=== PATIENT | female | born 1935 | race Caucasian/White ===

== ENCOUNTER 2019-03-31 01:40 | Inpatient (IN) | payer MEDICARE ==
[~2019-03-31] VITALS: Ht 162.6 cm; Wt 68.7 kg
[2019-03-31 13:40] VITALS: BP 146/65
--- NOTE | 2019-03-31 13:40 | NUR ---
AMADA QUIGLEY admitted to room 223-1, with an admitting diagnosis of S/P LEFT KNEE REPLACEMENT, on 03/31/19 from [facility] via , accompanied by STAFF AND FAMILY.AMADA QUIGLEY introduced to surroundings, call light, bed controls, phone, TV, temperature control, lights, meal times, smoking policy, visitor policy, side rail policy, bathrooms and showers. Patient Rights given to patient in the handbook.AMADA QUIGLEY verbalizes understanding that [facility] is not responsible for the loss or damage to any personal effects or valuables that are kept in the patients posession during their hospitalization. The following Patient Care Plans were discussed with the PT: Discharge Planning AND IMMOBILITY. AMADA QUIGLEY verbalizes understanding of Interdisciplinary Patient Education. Patient received Patient Rights Booklet, which includes Privacy Act Statement and Data Collection Information Summary.
--- NOTE | 2019-03-31 14:22 | Occupational Therapy Eval ---
OT Evaluation-General/PLF Medical Diagnosis Admission Date Mar 31, 2019 at 01:40 Medical Diagnosis: L knee OA, s/p TKA Onset Date: Mar 31, 2019 Therapy Diagnosis Therapy Diagnosis: decreased functional mobilty and ADL function Precautions Precautions/Isolations: Standard Precautions Weight Bear Status Weight Bearing Restriction: Weight Bearing/Tolerated Referral Physician: Dr. Elvia Huerta Referral Reason: Activity Tolerance, Self Care, Evaluation/Treatment, Strengthening/ROM Medical History Current History Per nursing notes: "admitting diagnosis of S/P LEFT KNEE REPLACEMENT, on 03/31/19 from [facility] via , accompanied by STAFF AND FAMILY." Reviewed History: Yes Social History Home: Single Level Current Living Status: Alone Entry Into Home: Stairs Without Railing Steps Into Home: 1 (Pt has small threashhold going into home) Steps Inside Home: 0 Pt has tub shower with grab bars within the shower. Pt plans to receive a shower chair from the [employer]. Pt uses riser over the toilet to increase seat height. Pt stated daughter plans to come to pt's home and stay for one week upon d/c. ADL-Prior Level of Function Therapy Code Descriptions/Definitions Functional [place] Measure: 0=Not Assessed/NA 4=Minimal Assistance 1=Total Assistance 5=Supervision or Setup 2=Maximal Assistance 6=Modified [place] 3=Moderate Assistance 7=Complete [place] Therapy Quality Codes: 6 Independent with activity with or without an assistive device 5 Patient requires set up or clean up by helper. Patient completes activity by themselves 4 Supervision or touching assist (CGA). [place] provide cues , steadying assist 3 The helper provides less than half the effort to complete the activity 2 The helper provides more than half the effort to complete the activity 1 Dependent. The helper does all the effort to complete an activity 7 Patient refused to complete or attempt activity 9 The patient did not perform the activity before the current illness or injury 88 Not attempted due to Medical conditions or safety concerns Functional Abilities and Goals: Independent: Patient completed the activities by him/herself, with or without an assistive device, with no assistance from a helper. Needed Some Help: Patient needed partial assistance from another person to complete activities. Dependent: A helper completed the activities for the patient. 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 Pt 0x4, agreeable to therapy eval and treat. Pain Comment: Pt stated no pain during sitting, a dull ache within L knee. Mental Status/Objective Patient Orientation: Person, Place, Time, Situation, Normal For Age Current Glasses/Contacts: Yes Hearing Aids: No Dentures/Partials: No Hand Dominance: Right Upper Extremity ROM WFL Upper Extremity Coordination WFL Upper Extremity Sensation WFL Upper Extremity Strength 4+/5 BUE ADL-Treatment Eating (FIM): 7 Eating (QC): 6 Grooming (FIM): 5 (s/u for face wipes) Oral Hygiene (QC): 7 Bathing (FIM): 6 (Pt showered on shower chair, able to bath all areas with thoroughness and no AE) Shower/Bathe Self (QC): 6 Upper Body Dressing (FIM): 6 Upper Body Dressing (QC): 6 Lower Body Dressing (FIM): 5 (SBA for safety while wet/ showered) Lower Body Dressing (QC): 4 (SBA) On/Off Footwear (QC): 6 (Mod I for increased time due to pain/ uncomfort) Toileting (FIM): 6 (use of grab bars and riser over toilet) Toileting Hygiene (QC): 6 Transfers (B, C, W/C) (FIM): 5 (SBA for safety during movement due to pain) Toilet/Commode Transfer (FIM): 6 (Utilized grab bars and stool riser) Toilet Transfer (QC): 6 Shower Transfer (FIM): 5 (SBA due to pain) Other Treatments Pt completed OT evaluation and treatment. Pt sat EOB with good functional balance, gathered clothing from suitcase, and transferred with FWW to bathroom. Pt requested commode over toilet due to riser at home. Pt completed 10 minutes of arm bike with (5 minutes 25 watt) and (5 minutes 35 watt) resistance and no c/o SOB. Pt left in bed with family members and social insurance administrator present. All needs met and call light within reach. Education OT Patient Education: Correct positioning, Energy conservation, Modified ADL techniques, Progress toward Goal/Update tx plan, Purpose of tx/functional activities, Reviewed precautions, Rehab process, Safety issues, Transfer techniques, Use of adapted equipment Teaching Recipient: Patient Teaching Methods: Demonstration, Discussion Response to Teaching: Verbalize Understanding, Return Demonstration OT Short Term Goals Short Term Goals Grooming(FIM): 7 Transfers (B,C,W/C) (FIM): 6 Toilet/Commode Transfer(FIM): 6 1=Demonstrate adherence to instructed precautions during ADL tasks. 2=Patient will verbalize/demonstrate understanding of assistive devices/modifications for ADL. 3=Patient will improve strength/tolerance for activity to enable patient to perform ADL's. OT Residential Door Installer Goals Group Home Goals Eating (FIM): 7 Eating (QC): 6 Groomin Oral Hygiene (QC): 6 Bathing(FIM): 6 Shower/Bathe Self (QC): 6 Upper Body Dressing(FIM): 7 Upper Body Dressing (QC): 6 Lower Body Dressing(FIM): 7 Lower Body Dressing (QC): 6 On/Off Footwear (QC): 7 Toileting(FIM): 6 Toileting Hygiene (QC): 6 Transfers (B,C,W/C) (FIM): 6 Toilet/Commode Transfer(FIM): 6 Toilet/Commode Transfer (QC): 6 Tub Transfer(FIM): 6 Shower Transfer(FIM): 6 Additional Goals: 1-Demonstrate ADL Tasks, 2-Verbalize Understanding, 3-ImproveStrength/[place] 1=Demonstrate adherence to instructed precautions during ADL tasks. 2=Patient will verbalize/demonstrate understanding of assistive devices/modifications for ADL. 3=Patient will improve strength/tolerance for activity to enable patient to perform ADL's. OT Education/Plan Problem List/Assessment Assessment: Decreased Safety Aware, Impaired I ADL's, Impaired Self-Care Skills Discharge Recommendations Plan/Recommendations: Continue POC Therapy Discharge Recommendati: Other, See Comments (Home with intermittent assist) Equpiment Recommendations-D/C: Bath Chair Patient/Family Goals Pt states she would like to increase confidence of abilities and increase walking ability before d/c. Treatment Plan/Plan of Care Treatment,Training & Education: Yes Patient would benefit from OT for education, treatment and training to promote independence in ADL's, mobility, safety and/or upper extremity function for ADL's. Plan of Care: ADL Retraining, Caregiver Training, Functional Mobility, Group Exercise/Act as Ind, UE Funct Exercise/Act Treatment Duration: Apr 07, 2019 Frequency: At least 5 of 7 days/Wk (IRF) Estimated Hrs Per Day: 1 hour per day (1-1.5 hours per day) Agreement: Yes Rehab Potential: Good Time/GCodes Start Time: 15:00 Stop Time: 16:15 Total Time Billed (hr/min): 75 Billed Treatment Time 1 EVL ADL 4 (60) KERRI LEACH OTR Mar 31, 2019 14:21
[2019-03-31] MEDS ORDERED: POTA99TA21 PO (14:40)
[2019-03-31] MEDS ORDERED: GABA-488 PO (14:40)
[2019-03-31] MEDS ORDERED: PANT40TA2 PO (14:40)
[2019-03-31] MEDS ORDERED: AMLO5TAB9 PO (14:40)
[2019-03-31] MEDS ORDERED: ASPI-983 PO (14:40)
[2019-03-31] MEDS ORDERED: SENN-141 PO (14:40)
[2019-03-31] MEDS ORDERED: TRAM50TA2 PO (14:40)
[2019-03-31] MEDS ORDERED: HYDR-3812 PO (14:40)
[2019-03-31] MEDS ORDERED: LEVO50TA6 PO (14:40)
[2019-03-31] MEDS ORDERED: LOSA100T3 PO (14:40)
[2019-03-31] MEDS ORDERED: MELO7.5T46 PO (14:40)
[2019-03-31] MEDS ORDERED: LABE100T6 PO ×2 (14:44)
--- NOTE | 2019-03-31 15:03 | Physical Therapy Evaluation ---
PT Evaluation-General Medical Diagnosis Admission Date Mar 31, 2019 at 01:40 Medical Diagnosis: L knee OA, s/p TKA Onset Date: Mar 29, 2019 Therapy Diagnosis Therapy Diagnosis: impaired mobility, strength, endurance, ROM Precautions Precautions/Isolations: Standard Precautions Weight Bear Status Left Lower Extremity: Left Weight Bearing/Tolerated Referral Physician: Dr. lEvia Huerta Reason for Referral: Evaluation/Treatment Medical History Reviewed History: Yes Social History Home: Single Level Current Living Status: Alone Entry Into Home: Level Entry Patient states she has a small threshold to step over to get into her home. Prior/Core FIM Prior Level of Function Therapy Code Descriptions/Definitions Functional [place] Measure: 0=Not Assessed/NA 4=Minimal Assistance 1=Total Assistance 5=Supervision or Setup 2=Maximal Assistance 6=Modified [place] 3=Moderate Assistance 7=Complete [place] Therapy Quality Codes: 6 Independent with activity with or without an assistive device 5 Patient requires set up or clean up by helper. Patient completes activity by themselves 4 Supervision or touching assist (CGA). [place] provide cues , steadying assist 3 The helper provides less than half the effort to complete the activity 2 The helper provides more than half the effort to complete the activity 1 Dependent. The helper does all the effort to complete an activity 7 Patient refused to complete or attempt activity 9 The patient did not perform the activity before the current illness or injury 88 Not attempted due to Medical conditions or safety concerns Functional Abilities and Goals: Independent: Patient completed the activities by him/herself, with or without an assistive device, with no assistance from a helper. Needed Some Help: Patient needed partial assistance from another person to complete activities. Dependent: A helper completed the activities for the patient. Unknown: Not Applicable: Bed Mobility: 7 Transfers (B,C,W/C) (FIM): 7 Gait: 7 Stairs: 7 Indoor Mobility (Ambulation): Independent Stairs: Independent PT Evaluation-Current Subjective Patient in car pre tx, arrived at the hospital. She has 2/10 pain in left knee. Patient transferred to wheelchair with min assist and taken to the rehab floor. Pt/Family Goals to be independent at home Objective Patient Orientation: Person, Place, Situation ROM/Strength ROM Lower Extremities left knee flexion 80 degrees, extension +2 degrees Sensory Vision: Wears Glasses Hearing: Functional Sensation Right Lower Extremit: Impaired Sensation Left Lower Extremity: Impaired Sensation Lower Extremities Patient has diminished light touch sensation in both lower legs. Transfers Therapy Code Descriptions/Definitions Functional [place] Measure: 0=Not Assessed/NA 4=Minimal Assistance 1=Total Assistance 5=Supervision or Setup 2=Maximal Assistance 6=Modified [place] 3=Moderate Assistance 7=Complete [place] Therapy Quality Codes: 6 Independent with activity with or without an assistive device 5 Patient requires set up or clean up by helper. Patient completes activity by themselves 4 Supervision or touching assist (CGA). [place] provide cues , steadying assist 3 The helper provides less than half the effort to complete the activity 2 The helper provides more than half the effort to complete the activity 1 Dependent. The helper does all the effort to complete an activity 7 Patient refused to complete or attempt activity 9 The patient did not perform the activity before the current illness or injury 88 Not attempted due to Medical conditions or safety concerns Transfers (B, C, W/C) (FIM): 4 Scootin Rollin Roll Left to Right (QC): 4 Supine to/from Sit: 5 Sit to/from Stand: 4 Sit to Lying (QC): 4 Lying to Sitting/Side of Bed(Q: 4 Sit to Stand (QC): 4 Chair/Tzf-xk-Mgwam Xfer(QC): 4 Car Transfer (QC): 3 Patient performs bed mobility with SBA, supine <-> sit with SBA, sit <-> stand with CGA, transfers CGA, car transfer min assist. Patient needs cues for hand placement and safety. She can be impulsive and move quickly with transitions but has not lost her balance. Gait Does the Patient Walk?: Yes Mode of Locomotion: Walk Anticipated Mode of Locomotion: Walk Gait (FIM): 4 Walk 10 feet (QC): 4 Walk 50 ft with 2 Turns(QC): 4 Walk 150 ft (QC): 4 Walking 10ft/uneven surface-QC: 4 Distance: 400', 150', 100' Gait Level of Assist: 4 Gait Persons Needed: 1 Gait Assistive Device: FWW Comments/Gait Description Patient can ambulate 400' with a rolling walker with CGA (including 50' with at least 2 turns of 90 degrees and 10' over an uneven surface). She ambulates briskly but has decreased safety awareness and needs cues to slow down and turn safely. Stairs Stairs (FIM): 1 #of Steps: 1 Level of Assist: 4 1 Step (curb) (QC): 4 Assistive Device: Walker Patient can go up and down 1 step using a rolling walker with CGA. She needs cues for step placement and safety. Balance Sitting Static: Normal Sitting Dynamic: Normal Standing Static: Good Standing Dynamic: Fair Treatment seated exercises x20 (AP, marching, hip abd/add, LAQ for 5 min), supine exercises x20 (AP, QS, GS, HS, SLR, SAQ), NuStep level 3 for 15 min. Assessment/Needs Patient has impaired mobility, strength, endurance, ROM. She can be impulsive and has decreased safety awareness. She needs rest breaks often due to fatigue. Rehab Potential: Fair PT Short Term Goals Short Term Goals Time Frame: Apr 07, 2019 Transfers (B,C,W/C) (FIM): 5 Gait (FIM): 5 Gait Distance Comment: 500' Gait Level of Assist: 5 Gait Assistive Device: FWW PT Senior Care Goals Senior Care Goals PT Postal Carrier Goals Time Frame: Apr 21, 2019 Transfers (B,C,W/C) (FIM): 6 Sit to Lying (QC): 6 Lying-Sitting on Side/Bed(QC): 6 Sit to Stand (QC): 6 Rollin Roll Left to Right (QC): 6 Chair/Awi-ow-Tqsys Xfer(QC): 6 Car Transfer (QC): 6 Gait (FIM): 6 Distance: 500' Walk 10 feet (QC): 6 Walk 10ft-Uneven Surface(QC): 6 Walk 50ft with 2 Turns (QC): 6 Walk 150 ft (QC): 6 Gait Level of Assist: 6 Gait Assistive Device: FWW Stairs (FIM): 2 # of Steps: 4 1 Step (curb) (QC): 4 4 Steps (QC): 4 Stairs Level Of Assist: 5 PT Plan Problem List Problem List: Activity Tolerance, Functional Strength, Safety, Balance, Gait, Transfer, Bed Mobility, ROM Treatment/Plan Treatment Plan: Continue Plan of Care Treatment Plan: Bed Mobility, Education, Functional Activity [place], Functional Strength, Group Therapy, Gait, Safety, Therapeutic Exercise, Transfers Frequency: At least 5 of 7 days/Wk (IRF) Estimated Hrs Per Day: 1.5 hours per day Patient and/or Family Agrees t: Yes Safety Risks/Education Patient Education: Gait Training, Transfer Techniques, Steps, Correct Positioning, Safety Issues Teaching Recipient: Patient Teaching Methods: Demonstration, Discussion Response to Teaching: Reinforcement Needed Discharge Recommendations Plan Patient will perform bed mobility and transfer training, balance and endurance training, functional strengthening, stair training, gait training, and educatio n, to improve functional mobility and independence at home. Therapy Discharge Recommendati: Other, See Comments (home with family supervision) Time/GCodes Time In: 1330 Time Out: 1500 Total Billed Treatment Time: 90 Total Billed Treatment 1 visit EVM 30', GT 15' EX 45' LANI PALAFOX PT Mar 31, 2019 15:03
--- NOTE | 2019-03-31 16:33 | ST Cognitive Linguistic Eval ---
Speech Evaluation-General Medical Diagnosis L knee OA, s/p TKA Onset Date: Mar 29, 2019 Therapy Diagnosis Therapy Diagnosis: Cognitive-communication Precautions Precautions: Fall Precautions/Isolations: Standard Precautions Referral Referring Physician: Dr. Huerta Reason for Referral: Evaluation/Treatment Medical History Pertinent Medical History: OA OA Current History L knee OA, s/p TKA Reviewed History: Yes Social History Home: Single Level Current Living Status: Alone Speech PLF-Current Status Prior Level of Function Patient lives alone in her own home where she was independent for her daily needs Subjective Patient was pleasant and cooperative with the cognitive assessment. Language Eval: Auditory Comprehends Simple Yes/No Ques: Functional Indent/Objects [place]: Functional Ident/Pics in [place]: Functional Follows 1-Step Commands: Functional Follows Complex Directions: Functional Follows General Conversations: Functional Language Eval: Verbal Language Completes Spontaneous Greeting: Functional Produces Auto, Serial Info: Functional Imitates Simple Words/Phrases: Functional Word Finding: Functional Requests Basic Needs: Functional States Basic Personal Info: Functional Expresses Complex Ideas: Functional Objective Cognitive Domain Attention: WNL Memory: Mild Problem Solving: Functional Executive Functions: WNL Visuospatial Skills: Moderate Composite Severity Rating: WNL Clock Drawing Severity Rating: WNL Objective Formal/Standardized Tests [facility] Mental Status ([facility]) Results 29/30, within normal range Oral Motor/Speech Production Within Functional Limits Impression The patient is a pleasant 83 year old woman who was admitted to the ARU s/p TKA. The patient was given the SLUMS with a score of 29/30. The patient does not warrant skilled ST at this time. Communication/Social Cognition Comprehension: 7 Expression: 7 Social Interaction: 7 Problem Solvin Memory: 7 Speech Patient Assess Expression of Ideas/Wants: Expression (4) Understanding Verbal Content: Understands (4) Brief Interview-Mental Status: Yes Repetition of Three Words: Three (3) Temporal Orientation: Year: Correct (3) Temporal Orientation: Month: Accurate within 5 days(2) Temporal Orientation: Day: Correct (1) Recall : Wear to say "Sock": Yes, no cue required (2) Recall : Color: Yes, no cue required (2) Recall : Bed: Yes, no cue required (2) Memory/Recall Ability: Current season, Location of own room, Staff names and faces, That he or she is in a hsp/hsp unit Speech-Plan Patient/Family Goals Patient/Family Goals: The patient plans on returning to her home post rehab. Treatment Plan Speech Therapy Treatment Plan: Discontinue ST The patient does not require skilled ST at this time. Treatment Duration: Mar 31, 2019 Frequency: 1 time per week Estimated Hrs Per Day: .25 hour per day Rehab Potential: Fair Barriers to Learning: None identified Pt/Family Agrees to Plan: Yes Safety Risks/Education Teaching Recipient: Patient, Family Teaching Methods: Discussion Response to Teaching: Verbalize Understanding Education Topics Provided: Safety within her room Time Speech Therapy Time In: 16:15 Speech Therapy Time Out: 16:30 Total Billed Time: 15 Billed Treatment Time 1, SPSNDCOMP PATRICE Calderon Mar 31, 2019 16:33
--- NOTE | 2019-03-31 16:45 | NUR ---
SALES REPRESENTATIVE PUBLICATIONS met with patient to complete initial assessment. Patient was alert and oriented and agreeable to assessment. Patient admitted to ARU from [facility] following an elective left knee replacement due to osteoarthritis (Surgeon: Dr. Granado).Prior to surgery patient resided in a one level home in [place], [place]. The home has one step at the entrance. the home is equipped with a stool riser, grab bars in the bathroom and shower seat. Patient also has a FWW present in her hospital room that is borrowed from a friend.. Patient reports independence with all activity and an active lifestyle prior to surgery. Primary local contact identified as son, Prakash at [phone]. Prakash resides 3 blocks from patient. Secondary contact identified as daughter Herlinda of [place] at [phone]. Herlinda intends to stay with patient, for a week, at discharge. patient also identifies lifelong friend, Dillon as a contact at [phone]. Insurance verified as Medicare and Blue Cross with and temp prescription coverage and preferred pharmacy as [facility]. PCP identified as Dr. Patino of [place]. SALES REPRESENTATIVE PUBLICATIONS reviewed typical ARU length of stay and weekly team conferences. Patient admits at a relatively high level and will likely benefit from only a short stay. Upon discussion of post hospital arrangements, patient would like to utilize outpatient therapy in [place] at discharge. She would also like a handicap placard. SALES REPRESENTATIVE PUBLICATIONS will continue to follow.
--- NOTE | 2019-03-31 16:48 | NUR ---
UPDATED MED REC WITH DISCHARGE INSTRUCTIONS FROM [facility]. NOTE THE FOLLOWING CHANGES WERE MADE: START TAKING: MELOXICAM 7.5MG Q12 HOURS (STOP TAKING 15MG DAILY) ASPIRIN 81MG DAILY TRAMADOL 50MG 1-2 TABS Q6H PRN HYDROCODONE 5-325MG 1-2 Q4H PRN PROTONIX 40MG DAILY NOTE THE EXT MED HX SHOWS HER GABAPENTIN FILLED 300MG #60 FOR 30 DAYS - IT WAS REPORTED ON THE DISCHARGE FROM [facility] 1 HS. ALSO HER LABETALOL WAS FILLED 100MG #60 FOR 30 DAYS - IT WAS REPORTED 50MG AM AND 100MG HS. I TRIED MULTIPLE TIMES TO GET IN TO VISIT WITH THE PATIENT AND WAS UNABLE TO SPEAK WITH HER DUE TO OTHER STAFF MEMBERS WORKING WITH THE PATIENT. I HAVE REVIEWED IT IT WAS REPORTED AT [facility] BUT I PASSED THE INFO ON TO THE NURSE FOR CLARIFICATION. I WILL UPDATE THE MED REC BACK TO THE LIST OF HOME MEDICATIONS PRIOR TO [facility] VISIT AT A LATER TIME FOR PROPER DISCHARGE TO HOME ORDERS. Addendum: 04/03/19 at 0825 by CAIO FERGUSON [facility] REMOVED THE 5 NEW PRESCRIPTIONS FROM THE MED REC, ADDED BACK THE MELOXICAM 15MG THAT WAS CHANGED TO 7.5MG AT DISCHARGE. NURSE HAD VERIFIED WITH THE PATIENT SHE DOES TAKE THE GABAPENTIN AND LABETALOL DIFFERENTLY THAN THEY WERE RECENTLY FILLED, REVIEWED THEM THEY WERE REPORTED ON DISCHARGE INSTRUCTIONS FROM [facility].
--- NOTE | 2019-03-31 17:50 | PM&R H&P / Post Admit Assess ---
History of Present Illness HPI/Chief Complaint CC: Debility following left knee replacement HPI: This is an 83yoWF clinic pt of Dr. Patino who is s/p uncomplicated left knee replacement by Dr. Granado, but because she lives alone and due to her age and mild cognitive defect it was felt that she would benefit from 5 days of inpatient rehab in order to be successful at home and decrease fall risk an overall post op complications. She had never had a surgery before in all of her 83 years so she was at risk to have complications just from anesthesia and pain meds so will monitor that closely. She had a BM right before she left [place] but it was very small and she is asking for more laxatives but is urinating without any problems and her Hgb remains stable at 9.0. Her prior level of function ing was the use of assistive devices and she was independent with ADLs. Source: patient, old records Exam Limitations: no limitations Date Seen 03/31/19 Time Seen by a Provider: 17:30 Attending Physician Elvia Huerta DO PCP Referring Physician Date of Admission Mar 31, 2019 at 01:40 Home Medications & Allergies Home Medications Reviewed patient Home Medication Reconciliation performed by pharmacy medication reconciliations nuclear chemistry technician and/or nursing. Patients Allergies have been reviewed. Allergies Allergies Coded Allergies No Allergy Information Available (Unverified03/30/19) Past Kwvxztj-Kxacik-Onxjgz Hx Past Med/Social Hx: Reviewed Nursing Past Med/Soc Hx, Reviewed and Corrections made Patient Social History Marrital Status: single Employed/Student: retired Alcohol Use: Occasionally Uses Number of Drinks Today: 0 Recreational Drug Use: No Smoking Status: Never a Smoker Physical Abuse Screen: No Sexual Abuse: No Recent Foreign Travel: No (END October) Contact w/other who traveled: No Recent Hopitalizations: Yes (KNEE SURGERY 04-13) Recent Infectious Disease Expo: No Seasonal Allergies Seasonal Allergies: No Past Medical History Surgeries: Orthopedic Currently Using CPAP: No Currently Using BIPAP: No Cardiac: Hypertension Neurological: Neuropathy Gastrointestinal: Gastroesophageal Reflux, Chronic Constipation Musculoskeletal: Arthritis Endocrine: Hypothyroidsim Are Your Blood Sugars Over 250: No HEENT: Cataract History of Blood Disorders: No Family History Diabetes mellitus 19 MOTHER Hypertension 19 FATHER Review of Systems Constitutional: see HPI, malaise, weakness EENTM: no symptoms reported Respiratory: no symptoms reported Cardiovascular: no symptoms reported Gastrointestinal: constipation Genitourinary: no symptoms reported Musculoskeletal: joint pain (left knee) Skin: no symptoms reported Psychiatric/Neurological: No Symptoms Reported Physical Exam Exam Vital Signs Vital Signs Date Time Temp Pulse Resp B/P (MAP) Pulse Ox O2 Delivery O2 Flow Rate FiO2 03/31/19 20:10 Room Air 03/31/19 18:35 97.2 53 16 162/69 (100) 97 Capillary Refill : General Appearance: No Apparent Distress, WD/WN, Chronically ill HEENT: PERRL/EOMI, Normal ENT Inspection, Pharynx Normal, Moist Mucous Membranes Neck: Full Range of Motion, Normal Inspection, Non Tender, Supple Respiratory: Chest Non Tender, Lungs Clear, Normal Breath Sounds, No Accessory Muscle Use, No Respiratory Distress Cardiovascular: Regular Rate, Rhythm, No Edema, No Gallop, No JVD, No Murmur Gastrointestinal: Normal Bowel Sounds, No Organomegaly, No Pulsatile Mass, Non Tender, Soft Back: Normal Inspection, No CVA Tenderness, No Vertebral Tenderness Extremity: Normal Capillary Refill, Normal Inspection, Normal Range of Motion (except left leg due to knee pain), Non Tender, No Calf Tenderness, No Pedal Edema Neurologic/Psychiatric: Alert, Oriented x3, No Motor/Sensory Deficits, Normal Mood/Affect Skin: Normal Color, Warm/Dry Lymphatic: No Adenopathy Results Results/Procedures Labs Laboratory Tests 04/01/19 06:35 Patient resulted labs reviewed. Assessment/Plan Assessment and Plan Assess & Plan/Chief Complaint Assessment: s/p left knee replacement uncomplicated by Dr Granado at PSI POD # 3 HTN Hypothyroidism Neuropathy Post op anemia Post op constipation GERD OA Mild cognition deficit possibly related to anesthesia Plan: IRF protocol Pain control Check labs hgb alvaro BM regimen (1) Status post left knee replacement Status: Acute (2) Hypertension Status: Chronic Qualifiers: Hypertension type: essential hypertension Qualified Codes: I10 - Essential (primary) hypertension (3) GERD without esophagitis Status: Chronic (4) Constipation by delayed colonic transit Status: Acute (5) Osteoarthritis Status: Chronic Qualifiers: Osteoarthritis location: unspecified site Osteoarthritis type: unspecified Qualified Codes: M19.90 - Unspecified osteoarthritis, unspecified site (6) Neuropathy Status: Chronic (7) Cognitive decline Status: Chronic (8) Advanced age Status: Chronic (9) Postoperative anemia Status: Acute Post Admission Physician Asses Date seen by provider: Mar 31, 2019 Time seen by provider: 17:30 Admisison Dx: (1) Status post left knee replacement Status: Acute The preadmission screen agrees with the post admission assessment that the patient is a good candidate for inpatient rehabilitation. The patient will have a comprehensive program of inpatient rehabilitation with a goal of maximizing level of functional independence prior to discharge home with family. The patient will have PT/OT ninety minutes per day, each discipline, five days a week for gait, strengthening, conditioning, balance, ADLs, any pat ient/family/caregiver training as necessary. Speech therapy to do cognitive assessment and treat as indicated. Rehabilitation nursing to assist with bowel, bladder, skin, wound care, medication administration, pain management. Communications Engineering Technician to assist with discharge planning, community reentry. SCD's for DVT prophylaxis. She appears to be well motivated to participate in three hours of therapy a day. She should be able to tolerate three hours of therapy a day from a medical standpoint. She should benefit from the three hours of therapy a day. She has a reasonable discharge plan, reasonable discharge rehabilitation goals and a supportive family. She has various comorbidities that need to be closely monitored with medications and treatments adjusted on a daily basis as needed. These include: see list Barriers to discharge for this patient who had been independent prior to this are for her to be modified independent to supervision for ADLs and mobility skills prior to discharge home with family, so as to lessen the burden of the caregivers. Risks for this patient include: 1. Fall 2. Fracture 3. DVT 4. Pulmonary embolism 5. Wound infection 6. Skin breakdown 7. Contractures 8. Poorly controlled pain 9. Urinary retention 10. UTI 11. Respiratory infection 12. Aspiration Estimated Length of Stay: 5 days Prognosis: Rehab prognosis appears good for goal of discharge home with family modified independent to supervision for ADLs and mobility skills. ELVIA HUERTA DO Mar 31, 2019 17:50
[2019-03-31] MEDS ORDERED: NON-FORMULARY MEDICATION 1 EA EA (Sennosides (Senna) 8.6 MG) PO PRN (18:00)
[2019-03-31] MEDS ORDERED: diphenhydrAMINE 25 MG TAB (BENADRYL) PO PRN (18:00)
[2019-03-31] MEDS ORDERED: CALCIUM CARBONATE 500 MG (TUMS) TAB.CHEW PO PRN (18:00)
[2019-03-31] MEDS ORDERED: NON-FORMULARY MEDICATION 1 EA EA (Hydrocodone/Acetaminophen (Hydrocodone-Acetamin 5-325 mg PO PRN (18:00)
--- NOTE | 2019-03-31 18:00 | NUR ---
CHECKED WITH PATIENT TO VERIFY DOSES AND PATIENT STATES IS ON GABAPENTIN 300 MG AT HS ONLY AND LABETALOL 100 MG 1/2 TAB IN AM AND 1 TAB AT HS.
--- NOTE | 2019-03-31 18:30 | NUR ---
STATES NO BM X 3 DAYS AND MEDICATED WITH SOFTENERS AND LAXATIVE. FAMILY HERE THIS AFTERNOON. RATES LEFT KNEE PAIN A "0-2" TODAY. PLEASANT AND COOPERATIVE. HAS OWN WALKER.
[2019-03-31] MEDS: SENNA W/DOCUSATE (SENOKOT S) TABLET PO SCH ×2 (18:33→19:46)
[2019-03-31] MEDS: DOCUSATE SODIUM 100 MG (COLACE) CAP PO SCH ×2 (18:33→19:45)
[2019-03-31] MEDS: LACTULOSE SYRUP 10GM/15ML (ENULOSE) 30ML UDC PO SCH ×2 (18:33→19:46)
[2019-03-31 18:35] VITALS: BP 162/69
[2019-03-31] MEDS: ACETAMINOPHEN 500 MG TAB (TYLENOL) PO PRN (18:35)
[2019-03-31] MEDS: POLYETHYLENE GLYCOL 17 GM (MIRALAX) PACK PO SCH (19:46)
--- NOTE | 2019-03-31 19:47 | NUR ---
HS stools softeners held because patient just took them at 1830. Will continue to manage.
[2019-03-31] MEDS: LABETALOL 200 MG (NORMODYNE) TAB PO SCH (20:41)
[2019-03-31] MEDS: GABAPENTIN 300 MG (NEURONTIN) CAP PO SCH (20:41)
[2019-03-31] MEDS: amLODIPine 5 MG (NORVASC) TAB PO SCH (20:41)
[2019-03-31] MEDS: MELATONIN 3 MG TABLET PO PRN (20:41)
[2019-03-31] MEDS: HYDROcodone/APAP 5 MG/325 MG (LORTAB) TAB PO PRN (20:42)
[2019-03-31] MEDS ORDERED: NON-FORMULARY MEDICATION 1 EA EA (Amlodipine Besylate 5 MG) PO SCH (21:00)
[2019-03-31] MEDS ORDERED: NON-FORMULARY MEDICATION 1 EA EA (Labetalol HCl 100 MG) PO SCH (21:00)
--- NOTE | 2019-03-31 21:05 | Progress Note - Hospitalist ---
[facility] 03/31/195: Progress Note Ms. Freeman is a 83 yo WF presenting to rehab after a L TKA. Prior to hospitalization, she was actively and independently completing all of her ADLs. She has been living by herself for the past 12 years since the passing of her . She states that she has plenty of good friends and family around her. She lives alone in a single level home in [facility]. Her home is easy for her to navigate. She has never smoked and used to drink one martini a day, which she said kept the doctor away until now. She does have a walker, shower stool and hand rail for the bathtub. 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 She has 2 sons that live in [place] and a daughter in [place]. She has 4 grandchildren, one of which is Jesse who is currently in [facility] receiving a doctorate in PT. He is trying to practice in the and then possibly go to medical school. She is a very active and determined lady who doesn't plan on staying in rehab for long. She does have a family friend that she states is her second family, which were present today at the hospital. She was saying that Dillon, aka 'the filler', have been family friends ever since they have gotten back from the [place] wars. Their children grew up together and played together. She has a lot of love and affection for them. They are also part of her support group that will be present in [facility]. KAVON HURTADO DO 04/01/19 0736: Supervisory-Addendum Brief Verification & Attestation Participated in pt care: history, MDM, physical Personally performed: exam, history, MDM, supervision of care Care discussed with: Medical Student Procedures: n/a Results interpretation: Verified all documentation Verification and Attestation of Medical Student E/M Service A medical student performed and documented this service in my presence. I reviewed and verified all information documented by the medical student and made modifications to such information, when appropriate. I personally performed the physical exam and medical decision making. Kavon Hurtado, Apr 01, 2019,07:36 [facility] Mar 31, 2019 21:05 KAVON HURTADO DO Apr 01, 2019 07:36
[2019-04-01 05:30] VITALS: BP 132/62
[2019-04-01] MEDS: PANTOPRAZOLE 40 MG (PROTONIX) TAB PO SCH (06:13)
[2019-04-01] MEDS: LEVOTHYROXINE 50 MCG (LEVOTHROID) TAB PO SCH (06:13)
[2019-04-01 06:50] LABS: BASOPHILS % (AUTO) 1 % (0-10); EOSINOPHILS # (AUTO) 0.2 10^3/uL (0.0-0.3); EOSINOPHILS % (AUTO) 2 % (0-10); HEMATOCRIT 27 % (35-52); LYMPHOCYTES # (AUTO) 2.6 X 10^3 (1.0-4.0); LYMPHOCYTES % (AUTO) 30 % (12-44); MEAN CORPUSCULAR HEMOGLOBIN 33 PG (25-34); MEAN CORPUSCULAR HGB CONC 33 G/DL (32-36); MEAN CORPUSCULAR VOLUME 99 FL (80-99); MONOCYTES % (AUTO) 12 % (0-12); NEUTROPHILS # (AUTO) 4.9 X 10^3 (1.8-7.8); NEUTROPHILS % (AUTO) 56 % (42-75); PLATELET COUNT 226 10^3/uL (130-400); RED CELL DISTRIBUTION WIDTH 12.8 % (10.0-14.5); WHITE BLOOD COUNT 8.7 10^3/uL (4.3-11.0)
[2019-04-01 07:19] LABS: ALBUMIN 3.4 GM/DL (3.2-4.5); BILIRUBIN,TOTAL 0.4 MG/DL (0.1-1.0); CALCIUM 8.5 MG/DL (8.5-10.1); CREATININE SERUM 1.04 MG/DL (0.60-1.30); POTASSIUM 4.3 MMOL/L (3.6-5.0); TOTAL PROTEIN 5.3 GM/DL (6.4-8.2)
[2019-04-01] MEDS: SENNA W/DOCUSATE (SENOKOT S) TABLET PO SCH ×2 (08:11→19:50)
[2019-04-01] MEDS: DOCUSATE SODIUM 100 MG (COLACE) CAP PO SCH ×2 (08:11→19:49)
[2019-04-01] MEDS: LOSARTAN 100 MG (COZAAR) TABLET PO SCH (08:11)
--- NOTE | 2019-04-01 08:12 | Individualized Plan of Care ---
Individualized Plan of Care Rehab Nursing IPOC Order Admission Date Mar 31, 2019 at 01:40 Current Orders Orders Admission Order(Inpt,Obs,Sdc) (03/30/19 20:37) Vital Signs: Per Unit Policy ( 08,16,00 (03/30/19 20:37) Drug Abuse Technician-Inpt Rehab Con (03/30/19 20:37) Rehab Nursing Orders-Ipoc (03/30/19 20:37) Physical Therapy Rehab Orders (03/30/19 20:37) Occupational Therapy Rehab Ord (03/30/19 20:37) Speech Therapy Rehab Orders (03/30/19 20:37) General/Regular (03/31/19 Breakfast) Intake & Output 06,14,22 (03/30/19 20:37) Precautions (Aru) (03/30/19 20:37) Weekly Weight (Lbs) WEEK (03/30/19 20:37) Rehab-Intensity Of Therapy (03/30/19 20:37) Initiate Admission Nursing Pro .admission (03/30/19 20:37) Initiate Admission Nursing Pro .admission (03/30/19 20:37) Patient Visit (03/31/19 ) Pt Eval Moderate Complexity (03/31/19 ) Gait Training, Ea 15 Min (03/31/19 ) Exercise Therap, Ea 15 Min (03/31/19 ) Patient Visit (03/31/19 ) Speech Sound Lang Comp (03/31/19 ) Ambulate 08,12,20 (03/31/19 17:26) Sequential Compression Device .once (03/31/19 17:26) Dvt/Vte Risk - Notifiy Physici .ONCE (03/31/19 17:26) Acetaminophen Tablet (Tylenol Tablet) (03/31/19 18:00) Calcium Carbonate Chew Tablet (Antacid C (03/31/19 18:00) Diphenhydramine Tablet (Benadryl Tablet) (03/31/19 18:00) Docusate Sodium Capsule (Colace Capsule) (03/31/19 18:00) Lactulose Oral Solution (Enulose Oral So (03/31/19 18:00) Melatonin Tablet (Melatonin Tablet) (03/31/19 18:00) Polyethylene Glycol Powder Pkt (Miralax (03/31/19 21:00) Senna S Tablet (Senokot S Tablet) (03/31/19 18:00) Cbc With Automated Diff (04/01/19 06:00) Comprehensive Metabolic Panel (04/01/19 06:00) Aspirin Enteric Coated Tablet (Ecotrin T (04/01/19 09:00) Gabapentin Capsule/Tablet (Neurontin Cap (03/31/19 21:00) Levothyroxine Tablet (Synthroid Tablet) (04/01/19 06:30) Losartan Tablet (Cozaar Tablet) (04/01/19 09:00) Pantoprazole Tablet (Protonix Tablet) (04/01/19 07:00) Tramadol Tablet (Ultram Tablet) (03/31/19 18:00) (Nf) Amlodipine Besylate (03/31/19 21:00) (Nf) Hydrocodone/Acetaminophen (Hydrocod (03/31/19 18:00) (Nf) Labetalol Hcl (04/01/19 09:00) (Nf) Labetalol Hcl (03/31/19 21:00) (Nf) Sennosides (Senna) (03/31/19 18:00) Amlodipine Tablet (Norvasc Tablet) (03/31/19 21:00) Labetalol Tablet (Normodyne Tablet) (03/31/19 21:00) Labetalol Tablet (Normodyne Tablet) (04/01/19 09:00) Hydrocodone/Apap 5/325 Tablet (Lortab 5 (03/31/19 18:15) Incentive Spirometry (Nursing) Q2H (03/31/19 18:28) Nursing Communication (Order) (03/31/19 20:10) Continuous Passive Motion (03/31/19 20:10) Patient Visit (04/01/19 ) Gait Training, Ea 15 Min (04/01/19 ) Exercise Therap, Ea 15 Min (04/01/19 ) Cbc With Automated Diff (04/03/19 06:00) Comprehensive Metabolic Panel (04/03/19 06:00) Rehab Nursing Orders: Ongoing Assess. of Cognitive Status, Ongoing Assess. of Function Status, Bladder Training, Bowel Management, Disease Management & Educaiton, DVT Prophylaxis, Fall Prevention, Fluid/Electrolyte/Nutrition Mgmt, Medication Management & Education, Management of Risks & Complications, Nutrition Management, Pain Management, Patient/Family Support, Safety Management Intensity of Therapy to be met Patient to be seen: Min.3h per day/5 of 7d PT IPOC Problem List: Activity Tolerance, Functional Strength, Safety, Balance, Gait, Transfer, Bed Mobility, ROM Treatment Plan: Continue Plan of Care Bed Mobility, Education, Functional Activity Reagan, Functional Strength, Group Therapy, Gait, Safety, Therapeutic Exercise, Transfers Treatment Duration: Apr 01, 2019 Frequency: At least 5 of 7 days/Wk (IRF) Estimated Hrs Per Day: 1.5 hours per day OT IPOC Problems: Decreased Safety Aware, Impaired I ADL's, Impaired Self-Care Skills OT Treatment, Training and Edu: Yes Plan of Care: ADL Retraining, Caregiver Training, Functional Mobility, Group Exercise/Act as Ind, UE Funct Exercise/Act Treatment Duration: Apr 07, 2019 Frequency: At least 5 of 7 days/Wk (IRF) Estimated Hrs Per Day: 1 hour per day (1-1.5 hours per day) ST IPOC Speech Therapy Treatment Plan: Discontinue ST Treatment Duration: Mar 31, 2019 Frequency: 1 time per week Estimated Hrs Per Day: .25 hour per day Drug Abuse Technician/Case Mgmt Drug Abuse Technician/Case Managemen: Discharge Planning Dietitian/Thermodynamics Engineer Dietitian/Thermodynamics Engineer to monitor nutritional status and make changes and/or recommendations as needed and work with speech pathology on dietary upgrades as the occur. Physician IPOC Medical Issues being managed closely and that require the 24 hour availability of a physician: Recent surgery and only surgery this patient is ever had an 83 years old will need close monitoring for postop anemia narcotic bowel and fall risk and hyperte nsion Medical Issues: Bowel/Bladder Function, DVT Prophylaxis, Falls Precautions, Fluid/Electrolyte/Nutrition Balance, Pain Management Brief Synthesis of Preadmission Screen, Post-Admission Evaluation, and Therapy Evaluations: PT will focus on ambulation with new joint replacement and fall prevention OT will focus on resuming independent ADL's Medical Prognosis: Good Anticipated Length of Stay: 7 days KAVON HURTADO DO Apr 01, 2019 08:12
[2019-04-01] MEDS: LABETALOL 200 MG (NORMODYNE) TAB PO SCH ×2 (08:14→21:12)
[2019-04-01] MEDS: ASPIRIN E.C. 81 MG (ECOTRIN) TAB PO SCH (08:15)
[2019-04-01] MEDS: LACTULOSE SYRUP 10GM/15ML (ENULOSE) 30ML UDC PO SCH ×2 (08:17→19:49)
[2019-04-01 08:19] VITALS: BP 167/69
--- NOTE | 2019-04-01 08:58 | Physical Therapy Daily Note ---
PT Daily Note-Current Subjective Pt agreeable to PT session. States knee doesn't hurt really until up walking on it or ex's it. Pain Numeric Pain Scale: 0-No Pain Comment: no pain in sitting, rcv'd pain pill earlier Appearance upon arrival, pt sitting up in recliner upon arrival. At end of session pt sitting in room chair per pt request, call light, phone and bedside table within reach. Pt brkfst arrived upon ending session Mental Status Patient Orientation: Person, Place, Time, Eyes Open, Situation, Normal For Age Transfers Therapy Code Descriptions/Definitions Functional [place] Measure: 0=Not Assessed/NA 4=Minimal Assistance 1=Total Assistance 5=Supervision or Setup 2=Maximal Assistance 6=Modified [place] 3=Moderate Assistance 7=Complete [place] Therapy Quality Codes: 6 Independent with activity with or without an assistive device 5 Patient requires set up or clean up by helper. Patient completes activity by themselves 4 Supervision or touching assist (CGA). [place] provide cues , steadying assist 3 The helper provides less than half the effort to complete the activity 2 The helper provides more than half the effort to complete the activity 1 Dependent. The helper does all the effort to complete an activity 7 Patient refused to complete or attempt activity 9 The patient did not perform the activity before the current illness or injury 88 Not attempted due to Medical conditions or safety concerns Transfers (B, C, W/C) (FIM): 5 Scootin Rollin Supine to/from Sit: 5 Sit to/from Stand: 5 Pt demonstrating good and safe techniques with all transitions after skilled i nstruction. bed mobility and bed transfers performed with bed flat and without use of bedrails Weight Bearing Left Lower Extremity: Left Weight Bearing/Tolerated Gait Training Does the Patient Walk?: Yes Gait (FIM): 5 Distance (FIM): 3=150 ft Distance: 150x2 Gait Level of Assist: 5 Gait Persons Needed: 1 Gait Assistive Device: FWW antalgic, good pace, R knee recurvatum, L knee slight decreased knee flex, no LOB or unsteadiness Stair Training Stair Training: Handrails/: 2 handrails Stairs (FIM): 4 #of Steps: 4 Stairs: Pattern: Step to (reciprocating ascending, step to with skilled inst descending) Level of Assist: 4 (CGA provided) Exercises Seated Therapy Exercises: Ankle pumps, Sit to stand, Long arc quads, Hip flexion, Hamstring Curls Seated Reps: 20 Treatments bed mobility, transfers, safety, gait, stairs, strength, ROM, education, functional mobility, activity tolerance, review HEP to be performing between therapy sessions Assessment Current Status: Good Progress PT Short Term Goals Short Term Goals Time Frame: Apr 07, 2019 Transfers (B,C,W/C) (FIM): 6 Gait (FIM): 5 Gait Distance Comment: 500' Gait Level of Assist: 5 Gait Assistive Device: FWW PT Bridge Welder Goals Bridge Welder Goals PT Assisted Goals Time Frame: Apr 21, 2019 Transfers (B,C,W/C) (FIM): 6 Sit to Lying (QC): 6 Lying-Sitting on Side/Bed(QC): 6 Sit to Stand (QC): 6 Rollin Roll Left to Right (QC): 6 Chair/Pxv-dc-Cytvo Xfer(QC): 6 Car Transfer (QC): 6 Gait (FIM): 6 Distance: 500' Walk 10 feet (QC): 6 Walk 10ft-Uneven Surface(QC): 6 Walk 50ft with 2 Turns (QC): 6 Walk 150 ft (QC): 6 Gait Level of Assist: 6 Gait Assistive Device: FWW Stairs (FIM): 2 # of Steps: 4 1 Step (curb) (QC): 4 4 Steps (QC): 4 Stairs Level Of Assist: 5 PT Plan Treatment/Plan Treatment Plan: Continue Plan of Care Treatment Plan: Bed Mobility, Education, Functional Activity Reagan, Functional Strength, Group Therapy, Gait, Safety, Therapeutic Exercise, Transfers Frequency: At least 5 of 7 days/Wk (IRF) Estimated Hrs Per Day: 1.5 hours per day Patient and/or Family Agrees t: Yes Safety Risks/Education Patient Education: Gait Training, Transfer Techniques, Safety Issues Teaching Recipient: Patient Teaching Methods: Demonstration, Discussion Response to Teaching: Verbalize Understanding, Return Demonstration Time/GCodes Time In: 855 Time Out: 921 Total Billed Treatment Time: 26 Total Billed Treatment 1 visit, GT x1 unit, EX x1 unit HAIDER,SUSAN JOB PRINTER APPRENTICE Apr 01, 2019 08:58
[2019-04-01] MEDS ORDERED: NON-FORMULARY MEDICATION 1 EA EA (Potassium Gluconate (Potassium) 99 MG) PO SCH (09:00)
[2019-04-01] MEDS ORDERED: LABETALOL HCL PO SCH (09:00)
[2019-04-01] MEDS: POLYETHYLENE GLYCOL 17 GM (MIRALAX) PACK PO SCH ×2 (09:00→19:49)
[2019-04-01] MEDS: HYDROcodone/APAP 5 MG/325 MG (LORTAB) TAB PO PRN ×2 (13:11→21:12)
--- NOTE | 2019-04-01 15:37 | PM&R Progress Note ---
Subjective HPI/CC On Admission Date Seen by Provider: Apr 01, 2019 Time Seen by Provider: 12:30 CC: Debility following left knee replacement HPI: This is an 83yoWF clinic pt of Dr. Patino who is s/p uncomplicated left knee replacement by Dr. Granado, but because she lives alone and due to her age and mild cognitive defect it was felt that she would benefit from 5 days of inpatient rehab in order to be successful at home and decrease fall risk an overall post op complications. She had never had a surgery before in all of her 83 years so she was at risk to have complications just from anesthesia and pain meds so will monitor that closely. She had a BM right before she left [place] but it was very small and she is asking for more laxatives but is urinating without any problems and her Hgb remains stable at 9.0. Her prior level of function ing was the use of assistive devices and she was independent with ADLs. Subjective/Events-last exam Had a bowel movement this morning after multiple meds Aspirin is used for DVT prophylaxis Hemoglobin is 9.0 without any indication for transfusion Pain is well controlled Applying ice to the leg Taking pain medication as needed Using incentive spirometer Family at the bedside Check meds and labs Conferred with RN Reviewed therapy notes Review of Systems General: Fatigue Musculoskeletal: leg pain Objective Exam Vital Signs Vital Signs Date Time Temp Pulse Resp B/P (MAP) Pulse Ox O2 Delivery O2 Flow Rate FiO2 04/02/19 05:40 99.3 64 18 124/66 (85) 95 Room Air Capillary Refill : General Appearance: No Apparent Distress, WD/WN, Chronically ill HEENT: PERRL/EOMI, Normal ENT Inspection, Pharynx Normal, Moist Mucous Membranes Neck: Full Range of Motion, Normal Inspection, Non Tender, Supple Respiratory: Chest Non Tender, Lungs Clear, Normal Breath Sounds, No Accessory Muscle Use, No Respiratory Distress Cardiovascular: Regular Rate, Rhythm, No Edema, No Gallop, No JVD, No Murmur Gastrointestinal: Normal Bowel Sounds, No Organomegaly, No Pulsatile Mass, Non Tender, Soft Back: Normal Inspection, No CVA Tenderness, No Vertebral Tenderness Extremity: Normal Capillary Refill, Normal Inspection, Normal Range of Motion ( except left leg due to knee pain), Non Tender, No Calf Tenderness, No Pedal Edema Neurologic/Psychiatric: Alert, Oriented x3, No Motor/Sensory Deficits, Normal Mood/Affect Skin: Normal Color, Warm/Dry Lymphatic: No Adenopathy Results/Procedures Lab Patient resulted labs reviewed. FIM Transfers Therapy Code Descriptions/Definitions Functional [place] Measure: 0=Not Assessed/NA 4=Minimal Assistance 1=Total Assistance 5=Supervision or Setup 2=Maximal Assistance 6=Modified [place] 3=Moderate Assistance 7=Complete [place] Therapy Quality Codes: 6 Independent with activity with or without an assistive device 5 Patient requires set up or clean up by helper. Patient completes activity by themselves 4 Supervision or touching assist (CGA). [place] provide cues , steadying assist 3 The helper provides less than half the effort to complete the activity 2 The helper provides more than half the effort to complete the activity 1 Dependent. The helper does all the effort to complete an activity 7 Patient refused to complete or attempt activity 9 The patient did not perform the activity before the current illness or i njury 88 Not attempted due to Medical conditions or safety concerns Transfers (B, C, W/C) (FIM): 5 Scootin Rollin Roll Left to Right (QC): 4 Supine to/from Sit: 5 Sit to/from Stand: 5 Sit to Lying (QC): 4 Sit to Stand (QC): 4 Chair/Fok-hi-Qtxgw Xfer(QC): 4 Car Transfer (QC): 3 Gait Training Does the Patient Walk?: Yes Gait (FIM): 5 Distance (FIM): 3=150 ft Distance: 150x2 Walk 10 feet (QC): 4 Walk 50 ft with 2 Turns(QC): 4 Walk 150 ft (QC): 4 Walking 10ft/uneven surface-QC: 4 Gait Level of Assist: 5 Gait Persons Needed: 1 Gait Assistive Device: FWW Stair Training Stair Training: Handrails/: 2 handrails Stairs (FIM): 4 #of Steps: 4 1 Step (curb) (QC): 4 Stairs: Pattern: Step to (reciprocating ascending, step to with skilled inst descending) Level of Assist: 4 (CGA provided) Mental Status/Objective Comprehension: 7 Expression: 7 Social Interaction: 7 Problem Solvin Memory: 7 ADL-Treatment Feedin Eating (QC): 6 Groomin (s/u for face wipes) Oral Hygiene (QC): 7 Bathin (Pt showered on shower chair, able to bath all areas with thoroughness and no AE) Shower/Bathe Self (QC): 6 Upper Extremity Dressin Upper Body Dressing (QC): 6 Lower Extremity Dressin (SBA for safety while wet/ showered) Lower Body Dressing (QC): 4 (SBA) On/Off Footwear (QC): 6 (Mod I for increased time due to pain/ uncomfort) Toiletin (use of grab bars and riser over toilet) Toileting Hygiene (QC): 6 Toilet/Commode Transfer: 6 (Utilized grab bars and stool riser) Toilet Transfer (QC): 6 Shower: 5 (SBA due to pain) Assessment/Plan Assessment and Plan Assess & Plan/Chief Complaint Assessment: s/p left knee replacement uncomplicated by Dr Granado at PSI POD # 4 HTN Hypothyroidism Neuropathy Post op anemia Post op constipation now resolved GERD OA Mild cognition deficit possibly related to anesthesia Plan: IRF protocol Pain control Check labs hgb alvaro BM regimen Use IS (1) Status post left knee replacement Status: Acute (2) Constipation by delayed colonic transit Status: Acute (3) Osteoarthritis Status: Chronic Qualifiers: Osteoarthritis location: unspecified site Osteoarthritis type: unspecified Qualified Codes: M19.90 - Unspecified osteoarthritis, unspecified site (4) Neuropathy Status: Chronic (5) Hypertension Status: Chronic Qualifiers: Hypertension type: essential hypertension Qualified Codes: I10 - Essential (primary) hypertension (6) GERD without esophagitis Status: Chronic (7) Postoperative anemia Status: Acute (8) Cognitive decline Status: Chronic (9) Advanced age Status: Chronic KAVON HURTADO DO Apr 01, 2019 15:37
[2019-04-01 17:39] VITALS: BP 161/55
[2019-04-01] MEDS: amLODIPine 5 MG (NORVASC) TAB PO SCH (21:11)
[2019-04-01] MEDS: GABAPENTIN 300 MG (NEURONTIN) CAP PO SCH (21:11)
[2019-04-01] MEDS: MELATONIN 3 MG TABLET PO PRN (21:12)
[2019-04-02] MEDS: HYDROcodone/APAP 5 MG/325 MG (LORTAB) TAB PO PRN ×5 (02:52→21:00)
[2019-04-02 05:40] VITALS: BP 124/66
[2019-04-02] MEDS: PANTOPRAZOLE 40 MG (PROTONIX) TAB PO SCH (06:49)
[2019-04-02] MEDS: LEVOTHYROXINE 50 MCG (LEVOTHROID) TAB PO SCH (06:49)
[2019-04-02] MEDS: DOCUSATE SODIUM 100 MG (COLACE) CAP PO SCH ×2 (08:53→20:33)
[2019-04-02] MEDS: LOSARTAN 100 MG (COZAAR) TABLET PO SCH (08:54)
[2019-04-02] MEDS: SENNA W/DOCUSATE (SENOKOT S) TABLET PO SCH ×2 (09:00→21:29)
[2019-04-02] MEDS: POLYETHYLENE GLYCOL 17 GM (MIRALAX) PACK PO SCH ×2 (09:00→21:28)
[2019-04-02] MEDS: ASPIRIN E.C. 81 MG (ECOTRIN) TAB PO SCH (09:01)
[2019-04-02] MEDS: LABETALOL 200 MG (NORMODYNE) TAB PO SCH ×2 (09:02→20:33)
[2019-04-02] MEDS: LACTULOSE SYRUP 10GM/15ML (ENULOSE) 30ML UDC PO SCH ×2 (09:05→20:34)
--- NOTE | 2019-04-02 12:04 | PM&R Progress Note ---
Subjective HPI/CC On Admission Date Seen by Provider: Apr 02, 2019 Time Seen by Provider: 12:00 CC: Debility following left knee replacement HPI: This is an 83yoWF clinic pt of Dr. Patino who is s/p uncomplicated left knee replacement by Dr. Granado, but because she lives alone and due to her age and mild cognitive defect it was felt that she would benefit from 5 days of inpatient rehab in order to be successful at home and decrease fall risk an overall post op complications. She had never had a surgery before in all of her 83 years so she was at risk to have complications just from anesthesia and pain meds so will monitor that closely. She had a BM right before she left [place] but it was very small and she is asking for more laxatives but is urinating without any problems and her Hgb remains stable at 9.0. Her prior level of function ing was the use of assistive devices and she was independent with ADLs. Subjective/Events-last exam Pain pills are taken as needed Getting out of bed with help Bowels are moving Block appears to be completely dissipated and she is having more pain Check meds and labs Conferred with RN Reviewed therapy notes Reassured patient Check labs in the morning Ambulating very well Aspirin for DVT prophylaxis Family at the bedside Review of Systems General: Fatigue Musculoskeletal: leg pain Objective Exam Vital Signs Vital Signs Date Time Temp Pulse Resp B/P (MAP) Pulse Ox O2 Delivery O2 Flow Rate FiO2 04/02/19 05:40 99.3 64 18 124/66 (85) 95 Room Air Capillary Refill : General Appearance: No Apparent Distress, WD/WN, Chronically ill HEENT: PERRL/EOMI, Normal ENT Inspection, Pharynx Normal, Moist Mucous Membranes Neck: Full Range of Motion, Normal Inspection, Non Tender, Supple Respiratory: Chest Non Tender, Lungs Clear, Normal Breath Sounds, No Accessory Muscle Use, No Respiratory Distress Cardiovascular: Regular Rate, Rhythm, No Edema, No Gallop, No JVD, No Murmur Gastrointestinal: Normal Bowel Sounds, No Organomegaly, No Pulsatile Mass, Non Tender, Soft Back: Normal Inspection, No CVA Tenderness, No Vertebral Tenderness Extremity: Normal Capillary Refill, Normal Inspection, Normal Range of Motion (except left leg due to knee pain), Non Tender, No Calf Tenderness, No Pedal Edema Neurologic/Psychiatric: Alert, Oriented x3, No Motor/Sensory Deficits, Normal Mood/Affect Skin: Normal Color, Warm/Dry Lymphatic: No Adenopathy Results/Procedures Lab Patient resulted labs reviewed. FIM Transfers Therapy Code Descriptions/Definitions Functional [place] Measure: 0=Not Assessed/NA 4=Minimal Assistance 1=Total Assistance 5=Supervision or Setup 2=Maximal Assistance 6=Modified [place] 3=Moderate Assistance 7=Complete [place] Therapy Quality Codes: 6 Independent with activity with or without an assistive device 5 Patient requires set up or clean up by helper. Patient completes activity by themselves 4 Supervision or touching assist (CGA). [place] provide cues , steadying assist 3 The helper provides less than half the effort to complete the activity 2 The helper provides more than half the effort to complete the activity 1 Dependent. The helper does all the effort to complete an activity 7 Patient refused to complete or attempt activity 9 The patient did not perform the activity before the current illness or injury 88 Not attempted due to Medical conditions or safety concerns Transfers (B, C, W/C) (FIM): 5 Scootin Rollin Roll Left to Right (QC): 4 Supine to/from Sit: 5 Sit to/from Stand: 5 Sit to Lying (QC): 4 Sit to Stand (QC): 4 Chair/Qxg-ty-Opgpx Xfer(QC): 4 Car Transfer (QC): 3 Gait Training Does the Patient Walk?: Yes Gait (FIM): 5 Distance (FIM): 3=150 ft Distance: 150x2 Walk 10 feet (QC): 4 Walk 50 ft with 2 Turns(QC): 4 Walk 150 ft (QC): 4 Walking 10ft/uneven surface-QC: 4 Gait Level of Assist: 5 Gait Persons Needed: 1 Gait Assistive Device: FWW Stair Training Stair Training: Handrails/: 2 handrails Stairs (FIM): 4 #of Steps: 4 1 Step (curb) (QC): 4 Stairs: Pattern: Step to (reciprocating ascending, step to with skilled inst descending) Level of Assist: 4 (CGA provided) Mental Status/Objective Comprehension: 7 Expression: 7 Social Interaction: 7 Problem Solvin Memory: 7 ADL-Treatment Feedin Eating (QC): 6 Groomin (s/u for face wipes) Oral Hygiene (QC): 7 Bathin (Pt showered on shower chair, able to bath all areas with thorough ness and no AE) Shower/Bathe Self (QC): 6 Upper Extremity Dressin Upper Body Dressing (QC): 6 Lower Extremity Dressin (SBA for safety while wet/ showered) Lower Body Dressing (QC): 4 (SBA) On/Off Footwear (QC): 6 (Mod I for increased time due to pain/ uncomfort) Toiletin (use of grab bars and riser over toilet) Toileting Hygiene (QC): 6 Toilet/Commode Transfer: 6 (Utilized grab bars and stool riser) Toilet Transfer (QC): 6 Shower: 5 (SBA due to pain) Assessment/Plan Assessment and Plan Assess & Plan/Chief Complaint Assessment: s/p left knee replacement uncomplicated by Dr Granado at PSI POD # 5 HTN Hypothyroidism Neuropathy Post op anemia Post op constipation now resolved GERD OA Mild cognition deficit possibly related to anesthesia Plan: IRF protocol Pain control Check labs hgb alvaro in morning BM regimen Monitor BP (1) Status post left knee replacement Status: Acute (2) Constipation by delayed colonic transit Status: Acute (3) Osteoarthritis Status: Chronic Qualifiers: Osteoarthritis location: unspecified site Osteoarthritis type: unspecified Qualified Codes: M19.90 - Unspecified osteoarthritis, unspecified site (4) Neuropathy Status: Chronic (5) Hypertension Status: Chronic Qualifiers: Hypertension type: essential hypertension Qualified Codes: I10 - Essential (primary) hypertension (6) GERD without esophagitis Status: Chronic (7) Postoperative anemia Status: Acute (8) Cognitive decline Status: Chronic (9) Advanced age Status: Chronic KAVON HURTADO DO Apr 02, 2019 12:04
[2019-04-02 18:00] VITALS: BP 138/64
[2019-04-02] MEDS: amLODIPine 5 MG (NORVASC) TAB PO SCH (20:33)
[2019-04-02] MEDS: GABAPENTIN 300 MG (NEURONTIN) CAP PO SCH (20:33)
[2019-04-03] MEDS: HYDROcodone/APAP 5 MG/325 MG (LORTAB) TAB PO PRN ×4 (03:15→20:49)
[2019-04-03] MEDS: LEVOTHYROXINE 50 MCG (LEVOTHROID) TAB PO SCH (05:42)
[2019-04-03] MEDS: PANTOPRAZOLE 40 MG (PROTONIX) TAB PO SCH (05:43)
[2019-04-03 06:04] VITALS: BP 126/71
[2019-04-03 06:34] LABS: BASOPHILS % (AUTO) 0 % (0-10); EOSINOPHILS # (AUTO) 0.2 10^3/uL (0.0-0.3); EOSINOPHILS % (AUTO) 2 % (0-10); HEMATOCRIT 27 % (35-52); HEMOGLOBIN 8.9 G/DL (11.5-16.0); LYMPHOCYTES % (AUTO) 28 % (12-44); MEAN CORPUSCULAR HEMOGLOBIN 32 PG (25-34); MEAN CORPUSCULAR HGB CONC 33 G/DL (32-36); MEAN CORPUSCULAR VOLUME 99 FL (80-99); MEAN PLATELET VOLUME 9.4 FL (7.4-10.4); MONOCYTES # (AUTO) 0.9 X 10^3 (0.0-1.0); MONOCYTES % (AUTO) 12 % (0-12); NEUTROPHILS # (AUTO) 4.1 X 10^3 (1.8-7.8); NEUTROPHILS % (AUTO) 58 % (42-75); PLATELET COUNT 239 10^3/uL (130-400); RED CELL DISTRIBUTION WIDTH 12.8 % (10.0-14.5); WHITE BLOOD COUNT 7.1 10^3/uL (4.3-11.0)
[2019-04-03 06:57] LABS: ALANINE AMINOTRANSFERASE 6 U/L (0-55); ALBUMIN 3.4 GM/DL (3.2-4.5); ALKALINE PHOSPHATASE 62 U/L (40-136); BILIRUBIN,TOTAL 0.5 MG/DL (0.1-1.0); BUN/CREATININE RATIO 15; CALCIUM 8.6 MG/DL (8.5-10.1); CARBON DIOXIDE 24 MMOL/L (21-32); CHLORIDE 105 MMOL/L (98-107); CREATININE SERUM 0.87 MG/DL (0.60-1.30); GFR ESTIMATED > 60; GLUCOSE 101 MG/DL (70-105); POTASSIUM 4.1 MMOL/L (3.6-5.0); SODIUM 137 MMOL/L (135-145); TOTAL PROTEIN 5.3 GM/DL (6.4-8.2)
[2019-04-03 08:00] VITALS: BP 126/63
--- NOTE | 2019-04-03 08:10 | Progress Note ---
[facility] 04/03/19 0809: Subjective Date Seen by a Provider: Apr 03, 2019 Time Seen by a Provider: 07:35 Subjective/Events-last exam Vitals are normal and stable. She is voiding with no issue. She is complaining of constipation. She did refuse laxatives Eating and drinking are going fine. Sleeping issues staying asleep. Prior to this she had no issues. Complains of moderate and occasionally high leg pain. ROS: +: n/a -: SOB/Chest pain, Fever/Chill, N/V/D, weight loss. Heavenly is an independent and cognitively intact individual. I believe that as long as her pain is under control and rehab goes well, she will be ok to leave Rehab by the end of this week. She also has a very large support group as well. She is actively ambulating and participating in PT/OT as well. Objective Exam Last Set of Vital Signs Vital Signs Date Time Temp Pulse Resp B/P (MAP) Pulse Ox O2 Delivery O2 Flow Rate FiO2 04/03/19 06:04 98.3 63 20 126/71 (89) 96 Room Air Capillary Refill : I&O Intake and Output 04/03/19 00:00 Intake Total 1650 ml Balance 1650 ml Intake Oral 1650 ml # Voids 8 General: Alert, Oriented X3, Cooperative, No Acute Distress Lungs: Clear to Auscultation, Normal Air Movement Heart: Regular Rate Abdomen: Normal Bowel Sounds, No Tenderness Results Lab Laboratory Tests 04/03/19 05:25: White Blood Count 7.1, Red Blood Count 2.77L, Hemoglobin 8.9L, Hematocrit 27L, Mean Corpuscular Volume 99, Mean Corpuscular Hemoglobin 32, Mean Corpuscular Hemoglobin Concent 33, Red Cell Distribution Width 12.8, Platelet Count 239, Mean Platelet Volume 9.4, Neutrophils (%) (Auto) 58, Lymphocytes (%) (Auto) 28, Monocytes (%) (Auto) 12, Eosinophils (%) (Auto) 2, Basophils (%) (Auto) 0, Neutrophils # (Auto) 4.1, Lymphocytes # (Auto) 2.0, Monocytes # (Auto) 0.9, Eosinophils # (Auto) 0.2, Basophils # (Auto) 0.0, Sodium Level 137, Potassium Level 4.1, Chloride Level 105, Carbon Dioxide Level 24, Anion Gap 8, Blood Urea Nitrogen 13, Creatinine 0.87, Estimat Glomerular Filtration Rate > 60, BUN/Creatinine Ratio 15, Glucose Level 101, Calcium Level 8.6, Corrected Calcium 9.1, Total Bilirubin 0.5, Aspartate Amino Transf (AST/SGOT) 15, Alanine Aminotransferase (ALT/SGPT) 6, Alkaline Phosphatase 62, Total Protein 5.3L, Albumin 3.4 Assessment/Plan Assessment/Plan Assess & Plan/Chief Complaint Assessment: 1. Constipation 2. Leg Pain Plan: 1. Restart laxatives 2. Maintain pain meds ahead of pain. 3. PT/OT work with pain. Clinical Quality Measures DVT/VTE Risk/Contraindication: Risk Factor Score Per Nursin RFS Level Per Nursing on Admit: 4+=Very High ELVIA HURTADO DO 04/03/19 2003: Assessment/Plan Assessment/Plan Assess & Plan/Chief Complaint Verification and Attestation of Medical Student E/M Service A medical student performed and documented this service in my presence. I reviewed and verified all information documented by the medical student and made modifications to such information, when appropriate. I personally performed the physical exam and medical decision making. Elvia Hurtado, Apr 03, 2019,20:02 Diagnosis/Problems Diagnosis/Problems (1) Status post left knee replacement Status: Acute (2) Constipation by delayed colonic transit Status: Acute (3) Osteoarthritis Status: Chronic Qualifiers: Qualified Codes: M19.90 - Unspecified osteoarthritis, unspecified site (4) Neuropathy Status: Chronic (5) Hypertension Status: Chronic Qualifiers: Qualified Codes: I10 - Essential (primary) hypertension (6) GERD without esophagitis Status: Chronic (7) Postoperative anemia Status: Acute (8) Cognitive decline Status: Chronic (9) Advanced age Status: Chronic Supervisory-Addendum Brief Verification & Attestation Participated in pt care: history, MDM, physical Personally performed: exam, history, MDM, supervision of care Care discussed with: Medical Student Procedures: n/a Results interpretation: Verified all documentation Verification and Attestation of Medical Student E/M Service A medical student performed and documented this service in my presence. I reviewed and verified all information documented by the medical student and made modifications to such information, when appropriate. I personally performed the physical exam and medical decision making. Elvia Hurtado, Apr 03, 2019,20:03 [facility] Apr 03, 2019 08:09 ELVIA HURTADO DO Apr 03, 2019 20:03
[2019-04-03] MEDS ORDERED: MELO15TA39 PO (08:19)
[2019-04-03] MEDS: ASPIRIN E.C. 81 MG (ECOTRIN) TAB PO SCH (08:55)
[2019-04-03] MEDS: DOCUSATE SODIUM 100 MG (COLACE) CAP PO SCH ×2 (08:55→20:49)
[2019-04-03] MEDS: LOSARTAN 100 MG (COZAAR) TABLET PO SCH (08:55)
[2019-04-03] MEDS: SENNA W/DOCUSATE (SENOKOT S) TABLET PO SCH ×2 (08:56→21:23)
[2019-04-03] MEDS: LABETALOL 200 MG (NORMODYNE) TAB PO SCH ×2 (08:56→20:49)
[2019-04-03] MEDS: LACTULOSE SYRUP 10GM/15ML (ENULOSE) 30ML UDC PO SCH ×2 (08:58→20:49)
--- NOTE | 2019-04-03 09:00 | NUR ---
STATES ONLY 1 BM SINCE ADMISSION AND MEDICATED WITH LAXATIVES. PLEASANT AND COOPERATIVE. NILO HOSE PUT ON DUE TO LEFT LEG EDEMA.
--- NOTE | 2019-04-03 10:51 | Occupational Ther Daily Note ---
OT Current Status-Daily Note Subjective pt laying in bed upon OT arrival. pt reports no pain at rest. pt agreed to OT TX session with focus on increasing indep with ADLs and functional mobility. Mental Status/Objective Therapy Code Descriptions/Definitions Functional [place] Measure: 0=Not Assessed/NA 4=Minimal Assistance 1=Total Assistance 5=Supervision or Setup 2=Maximal Assistance 6=Modified [place] 3=Moderate Assistance 7=Complete [place] ADL-Treatment Therapy Code Descriptions/Definitions Functional [place] Measure: 0=Not Assessed/NA 4=Minimal Assistance 1=Total Assistance 5=Supervision or Setup 2=Maximal Assistance 6=Modified [place] 3=Moderate Assistance 7=Complete [place] Therapy Quality Codes: 6 Independent with activity with or without an assistive device 5 Patient requires set up or clean up by helper. Patient completes activity by themselves 4 Supervision or touching assist (CGA). [place] provide cues , steadying assist 3 The helper provides less than half the effort to complete the activity 2 The helper provides more than half the effort to complete the activity 1 Dependent. The helper does all the effort to complete an activity 7 Patient refused to complete or attempt activity 9 The patient did not perform the activity before the current illness or injury 88 Not attempted due to Medical conditions or safety concerns Eating (FIM): 7 Eating (QC): 6 Grooming (FIM): 5 (standing at sink) Bathing (FIM): 5 (SPV for ssafety/ balance. pt requried set up) Bathing Location: L Arm, R Arm, L Upper Leg, R Upper Leg, L Lower Leg (including foot), R Lower Leg (including foot), Chest, Abdomen, Buttocks, Perineal Area Upper Body (FIM): 5 (setup) Lower Body Dressing (FIM): 5 (carolyn socks, underpatns, pants ) Toileting (FIM): 5 (SBA for safety/ balance ) Transfers (B, C, W/C) (FIM): 5 (SBA for safety/ balance ) Toilet/Commode Transfer (FIM): 5 (SBA for safety/ balance use of RW ) Shower Transfer(FIM): 5 (SBA for safety/ balance. use of shower kylie GB ) pt education on use of AE for LB dressing. pt attempt use and stated " I'll just bend over and do it, thats easier." pose session, pt laying in bed. all needs met. Education OT Patient Education: Energy conservation, Modified ADL techniques, Progress toward Goal/Update tx plan, Purpose of tx/functional activities, Safety issues, Transfer techniques, Use of adapted equipment Teaching Recipient: Patient Teaching Methods: Demonstration, Discussion Response to Teaching: Verbalize Understanding, Return Demonstration OT Short Term Goals Short Term Goals Grooming(FIM): 7 Transfers (B,C,W/C) (FIM): 6 Toilet/Commode Transfer(FIM): 6 1=Demonstrate adherence to instructed precautions during ADL tasks. 2=Patient will verbalize/demonstrate understanding of assistive devices/modifications for ADL. 3=Patient will improve strength/tolerance for activity to enable patient to perform ADL's. OT Fdc Goals Professor [employer] Oceanography Goals Eating (FIM): 7 Eating (QC): 6 Groomin Oral Hygiene (QC): 6 Bathing(FIM): 6 Shower/Bathe Self (QC): 6 Upper Body Dressing(FIM): 7 Upper Body Dressing (QC): 6 Lower Body Dressing(FIM): 7 Lower Body Dressing (QC): 6 On/Off Footwear (QC): 7 Toileting(FIM): 6 Toileting Hygiene (QC): 6 Transfers (B,C,W/C) (FIM): 6 Toilet/Commode Transfer(FIM): 6 Toilet/Commode Transfer (QC): 6 Tub Transfer(FIM): 6 Shower Transfer(FIM): 6 Additional Goals: 1-Demonstrate ADL Tasks, 2-Verbalize Understanding, 3-ImproveStrength/[place] 1=Demonstrate adherence to instructed precautions during ADL tasks. 2=Patient will verbalize/demonstrate understanding of assistive devices/modifications for ADL. 3=Patient will improve strength/tolerance for activity to enable patient to perform ADL's. OT Education/Plan Problem List/Assessment Assessment: Decreased Activ Tolerance, Impaired I ADL's Discharge Recommendations Plan/Recommendations: Continue POC Treatment Plan/Plan of Care Treatment,Training & Education: Yes Patient would benefit from OT for education, treatment and training to promote independence in ADL's, mobility, safety and/or upper extremity function for ADL's. Plan of Care: ADL Retraining, Caregiver Training, Functional Mobility, Group Exercise/Act as Ind, UE Funct Exercise/Act Treatment Duration: Apr 07, 2019 Frequency: At least 5 of 7 days/Wk (IRF) Estimated Hrs Per Day: 1 hour per day (1-1.5 hours per day) Agreement: Yes Rehab Potential: Fair Time/GCodes Start Time: 08:00 Stop Time: 09:30 Billed Treatment Time ADL 6 units, 90 minutes. MARTINA NEWTON OT Apr 03, 2019 10:51
--- NOTE | 2019-04-03 10:55 | Physical Therapy Daily Note ---
PT Daily Note-Current Subjective Agreeable to PT. Reports she feels she is improving. Mental Status Patient Orientation: Person, Place, Time, Situation Transfers Therapy Code Descriptions/Definitions Functional [place] Measure: 0=Not Assessed/NA 4=Minimal Assistance 1=Total Assistance 5=Supervision or Setup 2=Maximal Assistance 6=Modified [place] 3=Moderate Assistance 7=Complete [place] Therapy Quality Codes: 6 Independent with activity with or without an assistive device 5 Patient requires set up or clean up by helper. Patient completes activity by themselves 4 Supervision or touching assist (CGA). [place] provide cues , steadying assist 3 The helper provides less than half the effort to complete the activity 2 The helper provides more than half the effort to complete the activity 1 Dependent. The helper does all the effort to complete an activity 7 Patient refused to complete or attempt activity 9 The patient did not perform the activity before the current illness or injury 88 Not attempted due to Medical conditions or safety concerns Transfers (B, C, W/C) (FIM): 4 Supine to/from Sit: 4 (CGA for safety) Sit to/from Stand: 4 (CGA with skilled cues for safety and sequencing. ) Weight Bearing Left Lower Extremity: Left Weight Bearing/Tolerated Gait Training Does the Patient Walk?: Yes Gait (FIM): 4 Distance (FIM): 3=150 ft Distance: 150 ft x 4 reps; 50 ft x 2 Gait Assistive Device: FWW CGA at times for safety; cues for step through pattern and safety with gait. Exercises Supine Ex: Ankle pumps, Quad Set, Heel Slides, Short Arc Quads, Straight leg raise, Hip abd/add Supine Reps: 15 (to promote quad stregnth and control for safety with gait and transfers; promote LE ROM for normalized gait) Seated Therapy Exercises: Ankle pumps, Long arc quads, Hip flexion Seated Reps: 15 (quad strength and ROM for normalized gait and transfers) Standing: Heel/toe raises, Marching, Mini squats Standing Reps: 15 Assessment Current Status: Good Progress Pt is progressing well and makng functional gains. PT Short Term Goals Short Term Goals Time Frame: Apr 07, 2019 Transfers (B,C,W/C) (FIM): 6 Gait (FIM): 5 Gait Distance Comment: 500' Gait Level of Assist: 5 Gait Assistive Device: FWW PT Channel Cementer Outsole Machine Goals Channel Cementer Outsole Machine Goals PT Snf Goals Time Frame: Apr 21, 2019 Transfers (B,C,W/C) (FIM): 6 Sit to Lying (QC): 6 Lying-Sitting on Side/Bed(QC): 6 Sit to Stand (QC): 6 Rollin Roll Left to Right (QC): 6 Chair/Qzy-yj-Evunr Xfer(QC): 6 Car Transfer (QC): 6 Gait (FIM): 6 Distance: 500' Walk 10 feet (QC): 6 Walk 10ft-Uneven Surface(QC): 6 Walk 50ft with 2 Turns (QC): 6 Walk 150 ft (QC): 6 Gait Level of Assist: 6 Gait Assistive Device: FWW Stairs (FIM): 2 # of Steps: 4 1 Step (curb) (QC): 4 4 Steps (QC): 4 Stairs Level Of Assist: 5 PT Plan Problem List Problem List: Activity Tolerance, Functional Strength, Safety, Balance, Gait, Transfer, Bed Mobility Treatment/Plan Treatment Plan: Bed Mobility, Education, Functional Activity [place], Functional Strength, Group Therapy, Gait, Safety, Therapeutic Exercise, Transfers Treatment Duration: Apr 01, 2019 Frequency: At least 5 of 7 days/Wk (IRF) Estimated Hrs Per Day: 1.5 hours per day Patient and/or Family Agrees t: Yes Safety Risks/Education Patient Education: Transfer Techniques, Safety Issues Teaching Recipient: Patient Teaching Methods: Demonstration, Discussion Response to Teaching: Reinforcement Needed Time/GCodes Time In: 945 Time Out: 1045 Total Billed Treatment Time: 60 Total Billed Treatment visit EX 30 GT 30 PREET HENSON PT Apr 03, 2019 10:55
--- NOTE | 2019-04-03 13:24 | Physical Therapy Daily Note ---
PT Daily Note-Current Subjective Agrees to PT. Mental Status Patient Orientation: Person, Place, Time, Situation Transfers Therapy Code Descriptions/Definitions Functional [place] Measure: 0=Not Assessed/NA 4=Minimal Assistance 1=Total Assistance 5=Supervision or Setup 2=Maximal Assistance 6=Modified [place] 3=Moderate Assistance 7=Complete [place] Therapy Quality Codes: 6 Independent with activity with or without an assistive device 5 Patient requires set up or clean up by helper. Patient completes activity by themselves 4 Supervision or touching assist (CGA). [place] provide cues , steadying assist 3 The helper provides less than half the effort to complete the activity 2 The helper provides more than half the effort to complete the activity 1 Dependent. The helper does all the effort to complete an activity 7 Patient refused to complete or attempt activity 9 The patient did not perform the activity before the current illness or injury 88 Not attempted due to Medical conditions or safety concerns Transfers (B, C, W/C) (FIM): 4 Weight Bearing Right Lower Extremity: Right Weight Bearing/Tolerated Left Lower Extremity: Left Weight Bearing/Tolerated Gait Training Does the Patient Walk?: Yes Gait (FIM): 4 Distance (FIM): 3=150 ft Gait Assistive Device: FWW functional gait training with FWW varied distances with turns and obstacles. Skilled cues for safety and sequencign. Stair Training Stair Training: Handrails/: 2 handrails Stairs (FIM): 2 Stairs: Pattern: Step to up/down 4 steps x 2 with handrails with CGA and cues for sequencing. Education on sequence and safety on stairs. Exercises NuStep Minutes: 15 (To promote quad strength and knee ROM for normalized gait pattern. ) Treatments Fit and applied CPM 0-72 Degrees. Educated pt in usage. Assessment Current Status: Good Progress PT Short Term Goals Short Term Goals Time Frame: Apr 07, 2019 Transfers (B,C,W/C) (FIM): 6 Gait (FIM): 5 Gait Distance Comment: 500' Gait Level of Assist: 5 Gait Assistive Device: FWW PT Jail Goals [employer] Goals PT Jail Goals Time Frame: Apr 21, 2019 Transfers (B,C,W/C) (FIM): 6 Sit to Lying (QC): 6 Lying-Sitting on Side/Bed(QC): 6 Sit to Stand (QC): 6 Rollin Roll Left to Right (QC): 6 Chair/Inz-fm-Hcips Xfer(QC): 6 Car Transfer (QC): 6 Gait (FIM): 6 Distance: 500' Walk 10 feet (QC): 6 Walk 10ft-Uneven Surface(QC): 6 Walk 50ft with 2 Turns (QC): 6 Walk 150 ft (QC): 6 Gait Level of Assist: 6 Gait Assistive Device: FWW Stairs (FIM): 2 # of Steps: 4 1 Step (curb) (QC): 4 4 Steps (QC): 4 Stairs Level Of Assist: 5 PT Plan Problem List Problem List: Activity Tolerance, Functional Strength, Safety, Balance, Gait, Transfer Treatment/Plan Treatment Plan: Continue Plan of Care Treatment Plan: Bed Mobility, Education, Functional Activity [place], Functional Strength, Group Therapy, Gait, Safety, Therapeutic Exercise, Transfers Treatment Duration: Apr 01, 2019 Frequency: At least 5 of 7 days/Wk (IRF) Estimated Hrs Per Day: 1.5 hours per day Patient and/or Family Agrees t: Yes Safety Risks/Education Patient Education: Gait Training Teaching Recipient: Patient Teaching Methods: Demonstration, Discussion Response to Teaching: Return Demonstration Time/GCodes Time In: 1210 Time Out: 1250 Total Billed Treatment Time: 40 Total Billed Treatment visit EX 15 FA 25 PREET HENSON PT Apr 03, 2019 13:24
[2019-04-03] MEDS: POLYETHYLENE GLYCOL 17 GM (MIRALAX) PACK PO SCH ×2 (14:47→21:22)
[2019-04-03 16:02] VITALS: BP 147/69
--- NOTE | 2019-04-03 20:02 | PM&R Progress Note ---
Subjective HPI/CC On Admission Date Seen by Provider: Apr 03, 2019 Time Seen by Provider: 09:00 CC: Debility following left knee replacement HPI: This is an 83yoWF clinic pt of Dr. Patino who is s/p uncomplicated left knee replacement by Dr. Granado, but because she lives alone and due to her age and mild cognitive defect it was felt that she would benefit from 5 days of inpatient rehab in order to be successful at home and decrease fall risk an overall post op complications. She had never had a surgery before in all of her 83 years so she was at risk to have complications just from anesthesia and pain meds so will monitor that closely. She had a BM right before she left [place] but it was very small and she is asking for more laxatives but is urinating without any problems and her Hgb remains stable at 9.0. Her prior level of function ing was the use of assistive devices and she was independent with ADLs. Subjective/Events-last exam Hgb 8.9 BM today CPM machine will be used or discontinued depending on the orders from Dr. Granado Left leg edema noted but no calf pain, no concern for anything other than fluid accumulation Chronic constipation is an issue for her, multiple meds will be given today Check meds and labs Conferred with RN Reviewed therapy notes Reassured patient Checked labs this morning Ambulating very well Aspirin for DVT prophylaxis Family at the bedside Review of Systems General: Fatigue Gastrointestinal: Constipation Musculoskeletal: leg pain Objective Exam Vital Signs Vital Signs Date Time Temp Pulse Resp B/P (MAP) Pulse Ox O2 Delivery O2 Flow Rate FiO2 04/03/19 17:12 Room Air 04/03/19 16:02 36.6 64 16 147/69 96 Capillary Refill : General Appearance: No Apparent Distress, WD/WN, Chronically ill HEENT: PERRL/EOMI, Normal ENT Inspection, Pharynx Normal, Moist Mucous Membranes Neck: Full Range of Motion, Normal Inspection, Non Tender, Supple Respiratory: Chest Non Tender, Lungs Clear, Normal Breath Sounds, No Accessory Muscle Use, No Respiratory Distress Cardiovascular: Regular Rate, Rhythm, No Edema, No Gallop, No JVD, No Murmur Gastrointestinal: Normal Bowel Sounds, No Organomegaly, No Pulsatile Mass, Non Tender, Soft Back: Normal Inspection, No CVA Tenderness, No Vertebral Tenderness Extremity: Normal Capillary Refill, Normal Inspection, Normal Range of Motion (except left leg due to knee pain), Non Tender, No Calf Tenderness, No Pedal Edema Neurologic/Psychiatric: Alert, Oriented x3, No Motor/Sensory Deficits, Normal Mood/Affect Skin: Normal Color, Warm/Dry Lymphatic: No Adenopathy Results/Procedures Lab Laboratory Tests 04/03/19 05:25 Patient resulted labs reviewed. FIM Transfers Therapy Code Descriptions/Definitions Functional [place] Measure: 0=Not Assessed/NA 4=Minimal Assistance 1=Total Assistance 5=Supervision or Setup 2=Maximal Assistance 6=Modified [place] 3=Moderate Assistance 7=Complete [place] Therapy Quality Codes: 6 Independent with activity with or without an assistive device 5 Patient requires set up or clean up by helper. Patient completes activity by themselves 4 Supervision or touching assist (CGA). [place] provide cues , steadying assist 3 The helper provides less than half the effort to complete the activity 2 The helper provides more than half the effort to complete the activity 1 Dependent. The helper does all the effort to complete an activity 7 Patient refused to complete or attempt activity 9 The patient did not perform the activity before the current illness or injury 88 Not attempted due to Medical conditions or safety concerns Transfers (B, C, W/C) (FIM): 5 (SBA for safety/ balance ) Scootin Rollin Roll Left to Right (QC): 4 Supine to/from Sit: 4 (CGA for safety) Sit to/from Stand: 4 (CGA with skilled cues for safety and sequencing. ) Sit to Lying (QC): 4 Sit to Stand (QC): 4 Chair/Ehd-gd-Zbsjz Xfer(QC): 4 Car Transfer (QC): 3 Gait Training Does the Patient Walk?: Yes Gait (FIM): 4 Distance (FIM): 3=150 ft Distance: 150 ft x 4 reps; 50 ft x 2 Walk 10 feet (QC): 4 Walk 50 ft with 2 Turns(QC): 4 Walk 150 ft (QC): 4 Walking 10ft/uneven surface-QC: 4 Gait Level of Assist: 5 Gait Persons Needed: 1 Gait Assistive Device: FWW Stair Training Stair Training: Handrails/: 2 handrails Stairs (FIM): 2 #of Steps: 4 1 Step (curb) (QC): 4 Stairs: Pattern: Step to Level of Assist: 4 (CGA provided) Mental Status/Objective Comprehension: 7 Expression: 7 Social Interaction: 7 Problem Solvin Memory: 7 ADL-Treatment Feedin Eating (QC): 6 Groomin (standing at sink) Oral Hygiene (QC): 7 Bathin (SPV for ssafety/ balance. pt requried set up) Bathing Location: L Arm, R Arm, L Upper Leg, R Upper Leg, L Lower Leg (including foot), R Lower Leg (including foot), Chest, Abdomen, Buttocks, Perineal Area Shower/Bathe Self (QC): 6 Upper Extremity Dressin (setup) Upper Body Dressing (QC): 6 Lower Extremity Dressin (carolyn socks, underpatns, pants ) Lower Body Dressing (QC): 4 (SBA) On/Off Footwear (QC): 6 (Mod I for increased time due to pain/ uncomfort) Toiletin (SBA for safety/ balance ) Toileting Hygiene (QC): 6 Toilet/Commode Transfer: 5 (SBA for safety/ balance use of RW ) Toilet Transfer (QC): 6 Shower: 5 (SBA for safety/ balance. use of shower chiar, GB ) Assessment/Plan Assessment and Plan Assess & Plan/Chief Complaint Assessment: s/p left knee replacement uncomplicated by Dr Granado at PSI POD # 6 HTN Hypothyroidism Neuropathy Post op anemia Post op constipation now resolved but maintained on meds GERD OA Mild cognition deficit possibly related to anesthesia now resolved Plan: IRF protocol Pain control Monitor hgb BM regimen Monitor BP (1) Status post left knee replacement Status: Acute (2) Constipation by delayed colonic transit Status: Acute (3) Osteoarthritis Status: Chronic Qualifiers: Osteoarthritis location: unspecified site Osteoarthritis type: unspecified Qualified Codes: M19.90 - Unspecified osteoarthritis, unspecified site (4) Neuropathy Status: Chronic (5) Hypertension Status: Chronic Qualifiers: Hypertension type: essential hypertension Qualified Codes: I10 - Essential (primary) hypertension (6) GERD without esophagitis Status: Chronic (7) Postoperative anemia Status: Acute (8) Cognitive decline Status: Chronic (9) Advanced age Status: Chronic KAVON HURTADO DO Apr 03, 2019 20:02
[2019-04-03] MEDS: GABAPENTIN 300 MG (NEURONTIN) CAP PO SCH (20:49)
[2019-04-03] MEDS: amLODIPine 5 MG (NORVASC) TAB PO SCH (20:49)
[2019-04-04] MEDS: HYDROcodone/APAP 5 MG/325 MG (LORTAB) TAB PO PRN ×3 (03:08→19:37)
[2019-04-04] MEDS: LEVOTHYROXINE 50 MCG (LEVOTHROID) TAB PO SCH (05:24)
[2019-04-04] MEDS: PANTOPRAZOLE 40 MG (PROTONIX) TAB PO SCH (05:24)
[2019-04-04] MEDS: POLYETHYLENE GLYCOL 17 GM (MIRALAX) PACK PO SCH ×2 (05:24→21:47)
[2019-04-04 05:53] VITALS: BP 148/72
[2019-04-04] MEDS: DOCUSATE SODIUM 100 MG (COLACE) CAP PO SCH ×2 (08:12→21:59)
[2019-04-04] MEDS: LABETALOL 200 MG (NORMODYNE) TAB PO SCH ×2 (08:12→21:48)
[2019-04-04] MEDS: SENNA W/DOCUSATE (SENOKOT S) TABLET PO SCH ×2 (08:12→21:47)
[2019-04-04] MEDS: ASPIRIN E.C. 81 MG (ECOTRIN) TAB PO SCH (08:13)
[2019-04-04] MEDS: LACTULOSE SYRUP 10GM/15ML (ENULOSE) 30ML UDC PO SCH ×2 (08:13→21:56)
[2019-04-04] MEDS: LOSARTAN 100 MG (COZAAR) TABLET PO SCH (08:13)
--- NOTE | 2019-04-04 08:51 | Occupational Ther Daily Note ---
OT Current Status-Daily Note Subjective Pt sitting in chair, agrees to treatment. Pt reports 4/10 left knee pain with movement. Mental Status/Objective Therapy Code Descriptions/Definitions Functional [place] Measure: 0=Not Assessed/NA 4=Minimal Assistance 1=Total Assistance 5=Supervision or Setup 2=Maximal Assistance 6=Modified [place] 3=Moderate Assistance 7=Complete [place] ADL-Treatment Pt declined to shower or change clothes at this time, would like to complete grooming. Sit to stand with supervision. Gait to restroom with FWW. Pt brushed hair with modified independence. Pt took seated rest break and then retrieved toothbrush and toothpaste from suitcase. Pt stood at sink to wash face and brush teeth with modified independence. Pt requires increased time to complete grooming tasks. Pt sat EOB and applied lipstick without assist. Gait to therapy gym with FWW, no LOB noted. Therapy Code Descriptions/Definitions Functional [place] Measure: 0=Not Assessed/NA 4=Minimal Assistance 1=Total Assistance 5=Supervision or Setup 2=Maximal Assistance 6=Modified [place] 3=Moderate Assistance 7=Complete [place] Therapy Quality Codes: 6 Independent with activity with or without an assistive device 5 Patient requires set up or clean up by helper. Patient completes activity by themselves 4 Supervision or touching assist (CGA). [place] provide cues , steadying assist 3 The helper provides less than half the effort to complete the activity 2 The helper provides more than half the effort to complete the activity 1 Dependent. The helper does all the effort to complete an activity 7 Patient refused to complete or attempt activity 9 The patient did not perform the activity before the current illness or injury 88 Not attempted due to Medical conditions or safety concerns Grooming (FIM): 6 Oral Hygiene (QC): 6 Other Treatment Arm bike x12 minutes to increase overall strength and activity tolerance needed for functional task completion. Pt completed task with moderate resistance and slow pace. No rest breaks needed. Pt returned to room and transferred to bed with SBA. Pt resting in bed with needs met and CPM in place after session. OT Short Term Goals Short Term Goals Grooming(FIM): 7 Transfers (B,C,W/C) (FIM): 6 Toilet/Commode Transfer(FIM): 6 1=Demonstrate adherence to instructed precautions during ADL tasks. 2=Patient will verbalize/demonstrate understanding of assistive devices/modifications for ADL. 3=Patient will improve strength/tolerance for activity to enable patient to perform ADL's. OT Enterprise Application Administrator Goals Enterprise Application Administrator Goals Eating (FIM): 7 Eating (QC): 6 Groomin Oral Hygiene (QC): 6 Bathing(FIM): 6 Shower/Bathe Self (QC): 6 Upper Body Dressing(FIM): 7 Upper Body Dressing (QC): 6 Lower Body Dressing(FIM): 7 Lower Body Dressing (QC): 6 On/Off Footwear (QC): 7 Toileting(FIM): 6 Toileting Hygiene (QC): 6 Transfers (B,C,W/C) (FIM): 6 Toilet/Commode Transfer(FIM): 6 Toilet/Commode Transfer (QC): 6 Tub Transfer(FIM): 6 Shower Transfer(FIM): 6 Additional Goals: 1-Demonstrate ADL Tasks, 2-Verbalize Understanding, 3- ImproveStrength/[place] 1=Demonstrate adherence to instructed precautions during ADL tasks. 2=Patient will verbalize/demonstrate understanding of assistive devices/modifications for ADL. 3=Patient will improve strength/tolerance for activity to enable patient to perform ADL's. OT Education/Plan Discharge Recommendations Plan/Recommendations: Continue POC Treatment Plan/Plan of Care Patient would benefit from OT for education, treatment and training to promote independence in ADL's, mobility, safety and/or upper extremity function for ADL's. Plan of Care: ADL Retraining, Caregiver Training, Functional Mobility, Group Exercise/Act as Ind, UE Funct Exercise/Act Treatment Duration: Apr 07, 2019 Frequency: At least 5 of 7 days/Wk (IRF) Estimated Hrs Per Day: 1 hour per day (1-1.5 hours per day) Agreement: Yes Rehab Potential: Fair Time/GCodes Start Time: 08:00 Stop Time: 09:00 Total Time Billed (hr/min): 60 Billed Treatment Time 1 visit, ADLx3(45minutes), EX(15minutes) REMI WILDER OT Apr 04, 2019 08:51
--- NOTE | 2019-04-04 09:36 | PM&R Progress Note ---
Subjective HPI/CC On Admission Date Seen by Provider: Apr 04, 2019 Time Seen by Provider: 09:00 CC: Debility following left knee replacement HPI: This is an 83yoWF clinic pt of Dr. Patino who is s/p uncomplicated left knee replacement by Dr. Granado, but because she lives alone and due to her age and mild cognitive defect it was felt that she would benefit from 5 days of inpatient rehab in order to be successful at home and decrease fall risk an overall post op complications. She had never had a surgery before in all of her 83 years so she was at risk to have complications just from anesthesia and pain meds so will monitor that closely. She had a BM right before she left [place] but it was very small and she is asking for more laxatives but is urinating without any problems and her Hgb remains stable at 9.0. Her prior level of function ing was the use of assistive devices and she was independent with ADLs. Subjective/Events-last exam Pt doing really good. Pain pill at times. Bowels are not really moving to her satisfaction so will continue giving medications and may offer suppository and soap suds enema. It appears that the block had finally worn off three days ago which sometimes that does occur and since she had never had surgery before this may very well have surfaced while just in rehab so will continue supportive care. Discharge planning. Check meds and labs Conferred with RN Reviewed therapy notes Reassured patient Checked labs this morning Ambulating very well Aspirin for DVT prophylaxis Review of Systems Gastrointestinal: Constipation Musculoskeletal: leg pain Objective Exam Vital Signs Vital Signs Date Time Temp Pulse Resp B/P (MAP) Pulse Ox O2 Delivery O2 Flow Rate FiO2 04/04/19 18:00 37.3 71 16 122/73 97 Room Air Capillary Refill : General Appearance: No Apparent Distress, WD/WN, Chronically ill HEENT: PERRL/EOMI, Normal ENT Inspection, Pharynx Normal, Moist Mucous Membr anes Neck: Full Range of Motion, Normal Inspection, Non Tender, Supple Respiratory: Chest Non Tender, Lungs Clear, Normal Breath Sounds, No Accessory Muscle Use, No Respiratory Distress Cardiovascular: Regular Rate, Rhythm, No Edema, No Gallop, No JVD, No Murmur Gastrointestinal: Normal Bowel Sounds, No Organomegaly, No Pulsatile Mass, Non Tender, Soft Back: Normal Inspection, No CVA Tenderness, No Vertebral Tenderness Extremity: Normal Capillary Refill, Normal Inspection, Normal Range of Motion (except left leg due to knee pain), Non Tender, No Calf Tenderness, No Pedal Edema Neurologic/Psychiatric: Alert, Oriented x3, No Motor/Sensory Deficits, Normal Mood/Affect Skin: Normal Color, Warm/Dry Lymphatic: No Adenopathy Results/Procedures Lab Patient resulted labs reviewed. FIM Transfers Therapy Code Descriptions/Definitions Functional [place] Measure: 0=Not Assessed/NA 4=Minimal Assistance 1=Total Assistance 5=Supervision or Setup 2=Maximal Assistance 6=Modified [place] 3=Moderate Assistance 7=Complete [place] Therapy Quality Codes: 6 Independent with activity with or without an assistive device 5 Patient requires set up or clean up by helper. Patient completes activity by themselves 4 Supervision or touching assist (CGA). [place] provide cues , steadying assist 3 The helper provides less than half the effort to complete the activity 2 The helper provides more than half the effort to complete the activity 1 Dependent. The helper does all the effort to complete an activity 7 Patient refused to complete or attempt activity 9 The patient did not perform the activity before the current illness or injury 88 Not attempted due to Medical conditions or safety concerns Transfers (B, C, W/C) (FIM): 5 (SBA for safety/ balance ) Scootin Rollin Roll Left to Right (QC): 4 Supine to/from Sit: 4 (CGA for safety) Sit to/from Stand: 4 (CGA with skilled cues for safety and sequencing. ) Sit to Lying (QC): 4 Sit to Stand (QC): 4 Chair/Ojp-fb-Fyrxa Xfer(QC): 4 Car Transfer (QC): 3 Gait Training Does the Patient Walk?: Yes Gait (FIM): 4 Distance (FIM): 3=150 ft Distance: 150 ft x 4 reps; 50 ft x 2 Walk 10 feet (QC): 4 Walk 50 ft with 2 Turns(QC): 4 Walk 150 ft (QC): 4 Walking 10ft/uneven surface-QC: 4 Gait Level of Assist: 5 Gait Persons Needed: 1 Gait Assistive Device: FWW Stair Training Stair Training: Handrails/: 2 handrails Stairs (FIM): 2 #of Steps: 4 1 Step (curb) (QC): 4 Stairs: Pattern: Step to Level of Assist: 4 (CGA provided) Mental Status/Objective Comprehension: 7 Expression: 7 Social Interaction: 7 Problem Solvin Memory: 7 ADL-Treatment Feedin Eating (QC): 6 Groomin Oral Hygiene (QC): 6 Bathin (SPV for ssafety/ balance. pt requried set up) Bathing Location: L Arm, R Arm, L Upper Leg, R Upper Leg, L Lower Leg (including foot), R Lower Leg (including foot), Chest, Abdomen, Buttocks, Perineal Area Shower/Bathe Self (QC): 6 Upper Extremity Dressin (setup) Upper Body Dressing (QC): 6 Lower Extremity Dressin (carolyn socks, underpatns, pants ) Lower Body Dressing (QC): 4 (SBA) On/Off Footwear (QC): 6 (Mod I for increased time due to pain/ uncomfort) Toiletin (SBA for safety/ balance ) Toileting Hygiene (QC): 6 Toilet/Commode Transfer: 5 (SBA for safety/ balance use of RW ) Toilet Transfer (QC): 6 Shower: 5 (SBA for safety/ balance. use of shower chiar, GB ) Assessment/Plan Assessment and Plan Assess & Plan/Chief Complaint Assessment: s/p left knee replacement uncomplicated by Dr Granado at PSI POD # 7 HTN Hypothyroidism Neuropathy Post op anemia Post op constipation now resolved but maintained on meds GERD OA Mild cognition deficit possibly related to anesthesia now resolved Plan: IRF protocol Pain control Monitor hgb BM regimen Monitor BP DC planning (1) Status post left knee replacement Status: Acute (2) Constipation by delayed colonic transit Status: Acute (3) Osteoarthritis Status: Chronic Qualifiers: Osteoarthritis location: unspecified site Osteoarthritis type: unspecified Qualified Codes: M19.90 - Unspecified osteoarthritis, unspecified site (4) Neuropathy Status: Chronic (5) Hypertension Status: Chronic Qualifiers: Hypertension type: essential hypertension Qualified Codes: I10 - Essential (primary) hypertension (6) GERD without esophagitis Status: Chronic (7) Postoperative anemia Status: Acute (8) Cognitive decline Status: Chronic (9) Advanced age Status: Chronic KAVON HURTADO DO Apr 04, 2019 09:36
--- NOTE | 2019-04-04 11:22 | Physical Therapy Daily Note ---
PT Daily Note-Current Subjective Agreeable to PT. Reports she feels is is moving better each day. Mental Status Patient Orientation: Person, Place, Time, Situation Transfers Therapy Code Descriptions/Definitions Functional [place] Measure: 0=Not Assessed/NA 4=Minimal Assistance 1=Total Assistance 5=Supervision or Setup 2=Maximal Assistance 6=Modified [place] 3=Moderate Assistance 7=Complete [place] Therapy Quality Codes: 6 Independent with activity with or without an assistive device 5 Patient requires set up or clean up by helper. Patient completes activity by themselves 4 Supervision or touching assist (CGA). [place] provide cues , steadying assist 3 The helper provides less than half the effort to complete the activity 2 The helper provides more than half the effort to complete the activity 1 Dependent. The helper does all the effort to complete an activity 7 Patient refused to complete or attempt activity 9 The patient did not perform the activity before the current illness or injury 88 Not attempted due to Medical conditions or safety concerns Transfers (B, C, W/C) (FIM): 5 Supine to/from Sit: 5 Sit to/from Stand: 5 (Multiple varied surfaces throughout treatment; skilled cues for sequencing and safety.) Weight Bearing Right Lower Extremity: Right Weight Bearing/Tolerated Left Lower Extremity: Left Weight Bearing/Tolerated Gait Training Does the Patient Walk?: Yes Gait (FIM): 5 Distance (FIM): 3=150 ft Distance: >500 ft total Gait Assistive Device: FWW pt walked through hospital to outdoor area, walked through doorways, over/across thresholds, outdoor surfaces to include a bordwalk, cement, up/down a slope, up / down 3 steps all with FWW. Skilled cues provided throughout for safety, sequencing, management of varied surfaces. Pt sat on different surfaces as well to include park bench, outdoor chair. Stair Training Stair Training: Handrails/: 2 handrails Stairs (FIM): 2 #of Steps: 3 Stairs: Pattern: Step to Skilled cues 50% of the time for sequencing. Exercises Supine Ex: Ankle pumps, Quad Set, Heel Slides, Short Arc Quads, Straight leg raise, Hip abd/add Supine Reps: 15 (to promote Quad strength for gait, transfers and stairs; as well as normalized ROM for gait pattern) NuStep Minutes: 15 (quad strength, ROM and functional activity tolerance. ) Neuromuscular Dynamic balance training with use of FWW to include stepping over objects, s idestepping and walking through gift shop avoiding obstacles and narrow walkways. SB-CGa with high level balance activities and cues for safety. Treatments Functional gait, balance (neuromuscular) and strength training all to promote a mod indep level of mobility and safety with decreased fall risk. Assessment Current Status: Good Progress Pt is progressing well. No LOB episodes and follows cues well. PT Short Term Goals Short Term Goals Time Frame: Apr 07, 2019 Transfers (B,C,W/C) (FIM): 6 Gait (FIM): 5 Gait Distance Comment: 500' Gait Level of Assist: 5 Gait Assistive Device: FWW PT Bobbin Handler Goals Fdc Goals PT Fdc Goals Time Frame: Apr 21, 2019 Transfers (B,C,W/C) (FIM): 6 Sit to Lying (QC): 6 Lying-Sitting on Side/Bed(QC): 6 Sit to Stand (QC): 6 Rollin Roll Left to Right (QC): 6 Chair/Hkg-oq-Yjcma Xfer(QC): 6 Car Transfer (QC): 6 Gait (FIM): 6 Distance: 500' Walk 10 feet (QC): 6 Walk 10ft-Uneven Surface(QC): 6 Walk 50ft with 2 Turns (QC): 6 Walk 150 ft (QC): 6 Gait Level of Assist: 6 Gait Assistive Device: FWW Stairs (FIM): 2 # of Steps: 4 1 Step (curb) (QC): 4 4 Steps (QC): 4 Stairs Level Of Assist: 5 PT Plan Problem List Problem List: Activity Tolerance, Functional Strength, Safety, Balance, Gait, Transfer, Bed Mobility Treatment/Plan Treatment Plan: Continue Plan of Care Treatment Plan: Bed Mobility, Education, Functional Activity Reagan, Functional Strength, Group Therapy, Gait, Safety, Therapeutic Exercise, Transfers Treatment Duration: Apr 01, 2019 Frequency: At least 5 of 7 days/Wk (IRF) Estimated Hrs Per Day: 1.5 hours per day Patient and/or Family Agrees t: Yes Safety Risks/Education Patient Education: Transfer Techniques, Steps Teaching Recipient: Patient Teaching Methods: Demonstration, Discussion Response to Teaching: Reinforcement Needed Time/GCodes Time In: 930 Time Out: 1100 Total Billed Treatment Time: 90 Total Billed Treatment visit NM 30 EX 30 GT 30 PREET HENSON PT Apr 04, 2019 11:22
--- NOTE | 2019-04-04 14:54 | Therapy Group Daily Note ---
Therapy Daily Group Note Patient Education Topic Home Safety, Home Safety Session Ratio (pt:therapist): 4:1 Goal of Session: Education on ARU Expectations, Home Safety Strategies, Memory Strategies Goal Met for this Session: Yes Pt Benefit of Group: Contributions to Others, F/U Use of Strategies @Home, Increased Functional Safety, Increased Functional Strength, Recognition of Peers, Socialization pt transported to [facility] via w/c. group consisted of introducation (name, where you're from, and home safety question). pt shared approperiate and was activity listening and engaging with peers. Group therapy with focused on home safety and cognitive trivia. Then participated collectively with group for education regarding home safety strategies, adaptive equipment, and further education on discharge planning. This group also contained trivia pertaining to history, thus engaging in memory and knowledge. pt then transported back to room and laying supine in bed post session. call light within reach, all needs met. Start Time: 13:00 Stop Time: 14:15 Total Billed Treatment 1, GRP 75 minutes MARTINA NEWTON OT Apr 04, 2019 14:54
--- NOTE | 2019-04-04 15:45 | Progress Note ---
[facility] 04/04/19 1545: Subjective Date Seen by a Provider: Apr 04, 2019 Time Seen by a Provider: 14:15 Subjective/Events-last exam Vital are normal and stable. Voiding well. Complains of constipation even with the aid of laxatives. Is passing gas. Eating and drinking well. Has been drinking sprite to help stomach discomfort and staying hydrated. Sleeping well at night. Only gets up to go the bathroom. PT/OT are going well. Does mention pain is pretty extreme. Mentions she wont fall behind on the pain med schedule again. ROS: +: Nausea and constipation -: SOB/Chest pain, F/C, vomiting, vertigo or STALEY Wants to wait another day for possible bowel movement. If she doesn't have one by tomorrow, then she will be willing to try an enema. Focused Exam Peripheral Pulses: 2+ Dorsalis Pedis (R), 2+ Left Dors-Pedis (L), 2+ Radial Pulses (R), 2+ Radial Pulses (L) Skin: normal color Objective Exam Last Set of Vital Signs Vital Signs Date Time Temp Pulse Resp B/P (MAP) Pulse Ox O2 Delivery O2 Flow Rate FiO2 04/04/19 08:05 Room Air 04/04/19 05:53 36.6 60 17 148/72 96 Capillary Refill : I&O Intake and Output 04/04/19 00:00 Intake Total 1090 ml Balance 1090 ml Intake Oral 1090 ml # Voids 6 General: Alert, Oriented X3, Cooperative, No Acute Distress Lungs: Clear to Auscultation, Normal Air Movement Heart: Regular Rate Abdomen: Normal Bowel Sounds, No Tenderness Assessment/Plan Assessment/Plan Assess & Plan/Chief Complaint Assessment: 1. Constipation 2. Leg Pain Plan: 1. Restart laxatives 2. Maintain pain meds ahead of pain. 3. PT/OT work with pain. Clinical Quality Measures DVT/VTE Risk/Contraindication: Risk Factor Score Per Nursin RFS Level Per Nursing on Admit: 4+=Very High ELVIA HURTADO DO 04/04/19 1636: Supervisory-Addendum Brief Verification & Attestation Participated in pt care: history, MDM, physical Personally performed: exam, history, MDM, supervision of care Care discussed with: Medical Student Procedures: n/a Results interpretation: Verified all documentation Verification and Attestation of Medical Student E/M Service A medical student performed and documented this service in my presence. I rev iewed and verified all information documented by the medical student and made modifications to such information, when appropriate. I personally performed the physical exam and medical decision making. Elvia Hurtado, Apr 04, 2019,16:35 [facility] Apr 04, 2019 15:45 ELVIA HURTADO DO Apr 04, 2019 16:36
[2019-04-04 18:00] VITALS: BP 122/73
--- NOTE | 2019-04-04 19:14 | NUR ---
bedside report received from MARY COLE, assume care of pt
--- NOTE | 2019-04-04 19:37 | NUR ---
c/o pain level 5/10 on numeric scale, lortab 5 1 tab po given
--- NOTE | 2019-04-04 20:20 | NUR ---
rates pain level 2/10 on numeric scale, pt using CPM machine refuses ice states she is always cold & did not want to add to it
[2019-04-04 21:45] VITALS: BP 156/73
--- NOTE | 2019-04-04 21:45 | NUR ---
pt took miralax 2 packages & Senokot 2 tabs but refused Colace & Enulose, wanted CPM machine off
[2019-04-04] MEDS: GABAPENTIN 300 MG (NEURONTIN) CAP PO SCH (21:47)
[2019-04-04] MEDS: amLODIPine 5 MG (NORVASC) TAB PO SCH (21:49)
--- NOTE | 2019-04-04 21:50 | NUR ---
assessments & interventions completed, see assessments & interventions, up to bathroom with 1 person assist & walker
[2019-04-05] MEDS: HYDROcodone/APAP 5 MG/325 MG (LORTAB) TAB PO PRN ×4 (00:05→21:56)
--- NOTE | 2019-04-05 00:05 | NUR ---
c/o pain level 7/10 on numeric scale, Lortab 5 1 tab po given
--- NOTE | 2019-04-05 00:45 | NUR ---
resting quietly in bed, pain level 0/10 on flacc scale
[2019-04-05] MEDS: ACETAMINOPHEN 500 MG TAB (TYLENOL) PO PRN (03:25)
--- NOTE | 2019-04-05 03:25 | NUR ---
c/o pain level 5/10 on numeric scale Tylenol 500mg po given
--- NOTE | 2019-04-05 04:04 | NUR ---
resting quietly in bed, pain level 0/10 on flacc scale
[2019-04-05 05:27] VITALS: BP 126/72
[2019-04-05] MEDS: LEVOTHYROXINE 50 MCG (LEVOTHROID) TAB PO SCH (06:58)
[2019-04-05] MEDS: PANTOPRAZOLE 40 MG (PROTONIX) TAB PO SCH (06:58)
--- NOTE | 2019-04-05 06:58 | NUR ---
c/o pain level 4/10 on numeric scale, Lortab 5 1 tab po given
--- NOTE | 2019-04-05 07:11 | NUR ---
bedside report given to MARY COLE
--- NOTE | 2019-04-05 07:45 | Progress Note ---
[facility] 04/05/19 0745: Subjective Date Seen by a Provider: Apr 05, 2019 Time Seen by a Provider: 07:05 Subjective/Events-last exam Vital are normal and stable. Eating and drinking well Voiding well. Still unable to stool. Passing gas with no issue. Discussed enema. Wants to wait until the end of the day to have. Talked about possible referral to talk if bowel doesnt start moving. Sleeping was a little rough last night. Didnt fall asleep until 3 am. Left knee is still quite painful. Wants more independence. Talked about being comfortable with PT/OT on stand-by, allowing her to try and be more independent. ROS: + : constipation - : N/V/D, Fever/Chills, SOB/Chest pain, dizziness/STALEY, muscle aches Objective Exam Last Set of Vital Signs Vital Signs Date Time Temp Pulse Resp B/P (MAP) Pulse Ox O2 Delivery O2 Flow Rate FiO2 04/05/19 05:27 36.2 58 18 126/72 92 Room Air Capillary Refill : I&O Intake and Output 04/05/19 00:00 Intake Total 1540 ml Balance 1540 ml Intake Oral 1540 ml # Voids 7 General: Alert, Oriented X3, Cooperative, No Acute Distress Lungs: Normal Air Movement Heart: No Murmurs Assessment/Plan Assessment/Plan Assess & Plan/Chief Complaint Assessment: 1. Constipation 2. Leg Pain Plan: 1. Restart laxatives 2. Maintain pain meds ahead of pain. 3. PT/OT work with pain. Clinical Quality Measures DVT/VTE Risk/Contraindication: Risk Factor Score Per Nursin RFS Level Per Nursing on Admit: 4+=Very High ELVIA HURTADO DO 04/05/19 0847: Supervisory-Addendum Brief Verification & Attestation Participated in pt care: history, MDM, physical Personally performed: exam, history, MDM, supervision of care Care discussed with: Medical Student Procedures: n/a Results interpretation: Verified all documentation Verification and Attestation of Medical Student E/M Service A medical student performed and documented this service in my presence. I reviewed and verified all information documented by the medical student and made modifications to such information, when appropriate. I personally performed the physical exam and medical decision making. Elvia Hurtado, Apr 05, 2019,08:47 [facility] Apr 05, 2019 07:45 ELVIA HURTADO DO Apr 05, 2019 08:47
--- NOTE | 2019-04-05 08:48 | PM&R Progress Note ---
Subjective HPI/CC On Admission Date Seen by Provider: Apr 05, 2019 Time Seen by Provider: 08:45 CC: Debility following left knee replacement HPI: This is an 83yoWF clinic pt of Dr. Patino who is s/p uncomplicated left knee replacement by Dr. Granado, but because she lives alone and due to her age and mild cognitive defect it was felt that she would benefit from 5 days of inpatient rehab in order to be successful at home and decrease fall risk an overall post op complications. She had never had a surgery before in all of her 83 years so she was at risk to have complications just from anesthesia and pain meds so will monitor that closely. She had a BM right before she left [place] but it was very small and she is asking for more laxatives but is urinating without any problems and her Hgb remains stable at 9.0. Her prior level of function ing was the use of assistive devices and she was independent with ADLs. Subjective/Events-last exam Pt doing very well Refusing soap suds enema and suppository because she feels like her bowels are constipated up further in the colon so I recommended her to get the enema and suppository to be done after therapy and she agrees with that Decreasing her pain Pain pill is taken with food to minimize the nausea Incision looks good Randolph prado are helping with the swelling as well Check meds and labs Conferred with RN Reviewed therapy notes Reassured patient Checked labs this morning Ambulating very well Aspirin for DVT prophylaxis Review of Systems General: Fatigue Gastrointestinal: Nausea, Constipation Musculoskeletal: leg pain Objective Exam Vital Signs Vital Signs Date Time Temp Pulse Resp B/P (MAP) Pulse Ox O2 Delivery O2 Flow Rate FiO2 04/05/19 17:14 37.3 68 20 145/72 96 Room Air Capillary Refill : General Appearance: No Apparent Distress, WD/WN, Chronically ill HEENT: PERRL/EOMI, Normal ENT Inspection, Pharynx Normal, Moist Mucous Membranes Neck: Full Range of Motion, Normal Inspection, Non Tender, Supple Respiratory: Chest Non Tender, Lungs Clear, Normal Breath Sounds, No Accessory Muscle Use, No Respiratory Distress Cardiovascular: Regular Rate, Rhythm, No Edema, No Gallop, No JVD, No Murmur Gastrointestinal: Normal Bowel Sounds, No Organomegaly, No Pulsatile Mass, Non Tender, Soft Back: Normal Inspection, No CVA Tenderness, No Vertebral Tenderness Extremity: Normal Capillary Refill, Normal Inspection, Normal Range of Motion ( except left leg due to knee pain), Non Tender, No Calf Tenderness, No Pedal Edema Neurologic/Psychiatric: Alert, Oriented x3, No Motor/Sensory Deficits, Normal Mood/Affect Skin: Normal Color, Warm/Dry Lymphatic: No Adenopathy Results/Procedures Lab Patient resulted labs reviewed. FIM Transfers Therapy Code Descriptions/Definitions Functional [place] Measure: 0=Not Assessed/NA 4=Minimal Assistance 1=Total Assistance 5=Supervision or Setup 2=Maximal Assistance 6=Modified [place] 3=Moderate Assistance 7=Complete [place] Therapy Quality Codes: 6 Independent with activity with or without an assistive device 5 Patient requires set up or clean up by helper. Patient completes activity by themselves 4 Supervision or touching assist (CGA). [place] provide cues , steadying assist 3 The helper provides less than half the effort to complete the activity 2 The helper provides more than half the effort to complete the activity 1 Dependent. The helper does all the effort to complete an activity 7 Patient refused to complete or attempt activity 9 The patient did not perform the activity before the current illness or i njury 88 Not attempted due to Medical conditions or safety concerns Transfers (B, C, W/C) (FIM): 5 Scootin Rollin Roll Left to Right (QC): 4 Supine to/from Sit: 5 Sit to/from Stand: 5 (Multiple varied surfaces throughout treatment; skilled cues for sequencing and safety.) Sit to Lying (QC): 4 Sit to Stand (QC): 4 Chair/Tqx-el-Vgvgw Xfer(QC): 4 Car Transfer (QC): 3 Gait Training Does the Patient Walk?: Yes Gait (FIM): 5 Distance (FIM): 3=150 ft Distance: >500 ft total Walk 10 feet (QC): 4 Walk 50 ft with 2 Turns(QC): 4 Walk 150 ft (QC): 4 Walking 10ft/uneven surface-QC: 4 Gait Level of Assist: 5 Gait Persons Needed: 1 Gait Assistive Device: FWW Stair Training Stair Training: Handrails/: 2 handrails Stairs (FIM): 2 #of Steps: 3 1 Step (curb) (QC): 4 Stairs: Pattern: Step to Level of Assist: 4 (CGA provided) Mental Status/Objective Comprehension: 7 Expression: 7 Social Interaction: 7 Problem Solvin Memory: 7 ADL-Treatment Feedin Eating (QC): 6 Groomin Oral Hygiene (QC): 6 Bathin (SPV for ssafety/ balance. pt requried set up) Bathing Location: L Arm, R Arm, L Upper Leg, R Upper Leg, L Lower Leg (including foot), R Lower Leg (including foot), Chest, Abdomen, Buttocks, Perineal Area Shower/Bathe Self (QC): 6 Upper Extremity Dressin (setup) Upper Body Dressing (QC): 6 Lower Extremity Dressin (carolyn socks, underpatns, pants ) Lower Body Dressing (QC): 4 (SBA) On/Off Footwear (QC): 6 (Mod I for increased time due to pain/ uncomfort) Toiletin (SBA for safety/ balance ) Toileting Hygiene (QC): 6 Toilet/Commode Transfer: 5 (SBA for safety/ balance use of RW ) Toilet Transfer (QC): 6 Shower: 5 (SBA for safety/ balance. use of shower chiar, GB ) Assessment/Plan Assessment and Plan Assess & Plan/Chief Complaint Assessment: s/p left knee replacement uncomplicated by Dr Granado at [facility] POD # 8 HTN Hypothyroidism Neuropathy Post op anemia Post op constipation now resolved but maintained on meds GERD OA Mild cognition deficit possibly related to anesthesia now resolved Plan: IRF protocol Pain control Monitor hgb BM regimen Monitor BP DC planning for Wednesday when her daughter will come to town to stay 1 week with her (1) Status post left knee replacement Status: Acute (2) Constipation by delayed colonic transit Status: Acute (3) Osteoarthritis Status: Chronic Qualifiers: Osteoarthritis location: unspecified site Osteoarthritis type: unspecified Qualified Codes: M19.90 - Unspecified osteoarthritis, unspecified site (4) Neuropathy Status: Chronic (5) Hypertension Status: Chronic Qualifiers: Hypertension type: essential hypertension Qualified Codes: I10 - Essential (primary) hypertension (6) GERD without esophagitis Status: Chronic (7) Postoperative anemia Status: Acute (8) Cognitive decline Status: Chronic (9) Advanced age Status: Chronic KAVON HURTADO DO Apr 05, 2019 08:48
[2019-04-05] MEDS: ASPIRIN E.C. 81 MG (ECOTRIN) TAB PO SCH (09:45)
[2019-04-05] MEDS: SENNA W/DOCUSATE (SENOKOT S) TABLET PO SCH ×2 (09:45→21:55)
[2019-04-05] MEDS: DOCUSATE SODIUM 100 MG (COLACE) CAP PO SCH ×2 (09:45→21:54)
[2019-04-05] MEDS: LABETALOL 200 MG (NORMODYNE) TAB PO SCH ×2 (09:45→21:54)
[2019-04-05] MEDS: LOSARTAN 100 MG (COZAAR) TABLET PO SCH (09:45)
[2019-04-05] MEDS: POLYETHYLENE GLYCOL 17 GM (MIRALAX) PACK PO SCH ×2 (09:47→21:55)
[2019-04-05] MEDS: LACTULOSE SYRUP 10GM/15ML (ENULOSE) 30ML UDC PO SCH ×2 (09:47→21:55)
--- NOTE | 2019-04-05 10:56 | Physical Therapy Daily Note ---
PT Daily Note-Current Subjective Agreeable to PT. Reports she has not had a BM in several days. Taking meds to help move this along. Mental Status Patient Orientation: Person, Place, Time, Situation Transfers Therapy Code Descriptions/Definitions Functional [place] Measure: 0=Not Assessed/NA 4=Minimal Assistance 1=Total Assistance 5=Supervision or Setup 2=Maximal Assistance 6=Modified [place] 3=Moderate Assistance 7=Complete [place] Therapy Quality Codes: 6 Independent with activity with or without an assistive device 5 Patient requires set up or clean up by helper. Patient completes activity by themselves 4 Supervision or touching assist (CGA). [place] provide cues , steadying assist 3 The helper provides less than half the effort to complete the activity 2 The helper provides more than half the effort to complete the activity 1 Dependent. The helper does all the effort to complete an activity 7 Patient refused to complete or attempt activity 9 The patient did not perform the activity before the current illness or inj ury 88 Not attempted due to Medical conditions or safety concerns Transfers (B, C, W/C) (FIM): 5 Pt is generally SBA with all functional transfers. She tends to move quickly and does not always take extra caution. No note LOB but feel SBA is still necessary for safety purposes. Weight Bearing Right Lower Extremity: Right Weight Bearing/Tolerated Left Lower Extremity: Left Weight Bearing/Tolerated Gait Training Does the Patient Walk?: Yes Gait (FIM): 4 (SB with occas CGA with obstacle avoidance. ) Distance (FIM): 3=150 ft Distance: >500 ft Gait Assistive Device: FWW Pt tends to walk too fast at times with walker too far ahead. She has some trouble avoiding obstacles and does lean heavily on her walker. HEr gait is step through with a heel toe pattern. Stair Training Stair Training: Handrails/: 1 handrail Stairs (FIM): 2 #of Steps: 3 Stairs: Pattern: Step to skilled cues 50% of the time for sequencing; occas touch assist for safety. Exercises Seated Therapy Exercises: Ankle pumps, Sit to stand, Long arc quads, Hip flexion, Hamstring Curls Seated Reps: 15 Standing: Hamstring curls, Heel/toe raises, Marching, Mini squats Standing Reps: 15 Ther ex performed for functional strength training with skilled cues provided for correct technique and performance. Assessment Current Status: Good Progress Pt is progressing well. Tends to go too fast but feel this may be her nature as well. SBA for safety with mobility at this time PT Short Term Goals Short Term Goals Time Frame: Apr 07, 2019 Transfers (B,C,W/C) (FIM): 6 Gait (FIM): 5 Gait Distance Comment: 500' Gait Level of Assist: 5 Gait Assistive Device: FWW PT Alf Goals Alf Goals PT Customer Support Technician Goals Time Frame: Apr 21, 2019 Transfers (B,C,W/C) (FIM): 6 Sit to Lying (QC): 6 Lying-Sitting on Side/Bed(QC): 6 Sit to Stand (QC): 6 Rollin Roll Left to Right (QC): 6 Chair/Ejq-na-Jbsww Xfer(QC): 6 Car Transfer (QC): 6 Gait (FIM): 6 Distance: 500' Walk 10 feet (QC): 6 Walk 10ft-Uneven Surface(QC): 6 Walk 50ft with 2 Turns (QC): 6 Walk 150 ft (QC): 6 Gait Level of Assist: 6 Gait Assistive Device: FWW Stairs (FIM): 2 # of Steps: 4 1 Step (curb) (QC): 4 4 Steps (QC): 4 Stairs Level Of Assist: 5 PT Plan Problem List Problem List: Activity Tolerance, Functional Strength, Safety, Balance, Gait, Transfer, Bed Mobility, Other (sfety) Treatment/Plan Treatment Plan: Bed Mobility, Education, Functional Activity [place], Functional Strength, Group Therapy, Gait, Safety, Therapeutic Exercise, Transfers Treatment Duration: Apr 01, 2019 Frequency: At least 5 of 7 days/Wk (IRF) Estimated Hrs Per Day: 1.5 hours per day Patient and/or Family Agrees t: Yes Safety Risks/Education Patient Education: Safety Issues Teaching Recipient: Patient Teaching Methods: Demonstration, Discussion Response to Teaching: Return Demonstration, Reinforcement Needed Time/GCodes Time In: 930 Time Out: 1030 Total Billed Treatment Time: 60 Total Billed Treatment visit EX 30 GT 30 PREET HENSON PT Apr 05, 2019 10:56
--- NOTE | 2019-04-05 11:22 | Occupational Ther Daily Note ---
OT Current Status-Daily Note Subjective Pt sitting in chair, agrees to treatment. Pt reports 3/10 left knee pain. Mental Status/Objective Therapy Code Descriptions/Definitions Functional [place] Measure: 0=Not Assessed/NA 4=Minimal Assistance 1=Total Assistance 5=Supervision or Setup 2=Maximal Assistance 6=Modified [place] 3=Moderate Assistance 7=Complete [place] ADL-Treatment Pt declined bathing, states she will take a shower tomorrow. Pt changed socks with set up without use of adaptive equipment. Pt declined to change clothes. Gait to restroom with FWW. Stood at sink to brush teeth, wash face, and comb hair with modified independence. Pt demonstrated ability to perform transfer to BSC over toilet, with SBA only for safety. Pt states she has a tub/shower combo at home and will be getting a shower chair. Gait to shower room with FWW, no LOB noted. Education provided regarding transfer to tub with use of shower chair. Pt able to complete transfer with supervision and verbal cues for technique and safety. Pt requests to practice car transfer, was able to complete with SBA. Pt ambulated around ARU with FWW. Pt does not have any LOB, but occasionally moves very quickly and requires cues for safety. Pt practiced picking items up off floor using special projects coordinator. Pt able to complete task with SBA. Education provided regarding home safety and FWW use during functional tasks. Pt states understanding and has no questions at this time. Pt sitting in chair with needs met after session. Therapy Code Descriptions/Definitions Functional [place] Measure: 0=Not Assessed/NA 4=Minimal Assistance 1=Total Assistance 5=Supervision or Setup 2=Maximal Assistance 6=Modified [place] 3=Moderate Assistance 7=Complete [place] Therapy Quality Codes: 6 Independent with activity with or without an assistive device 5 Patient requires set up or clean up by helper. Patient completes activity by themselves 4 Supervision or touching assist (CGA). [place] provide cues , steadying assist 3 The helper provides less than half the effort to complete the activity 2 The helper provides more than half the effort to complete the activity 1 Dependent. The helper does all the effort to complete an activity 7 Patient refused to complete or attempt activity 9 The patient did not perform the activity before the current illness or injury 88 Not attempted due to Medical conditions or safety concerns Grooming (FIM): 6 Oral Hygiene (QC): 6 On/Off Footwear (QC): 5 Toilet/Commode Transfer (FIM): 5 Education OT Patient Education: Safety issues Teaching Recipient: Patient Teaching Methods: Discussion Response to Teaching: Verbalize Understanding OT Short Term Goals Short Term Goals Grooming(FIM): 7 Transfers (B,C,W/C) (FIM): 6 Toilet/Commode Transfer(FIM): 6 1=Demonstrate adherence to instructed precautions during ADL tasks. 2=Patient will verbalize/demonstrate understanding of assistive devices/modifications for ADL. 3=Patient will improve strength/tolerance for activity to enable patient to perform ADL's. OT Intermediate Goals Rope Maker Goals Eating (FIM): 7 Eating (QC): 6 Groomin Oral Hygiene (QC): 6 Bathing(FIM): 6 Shower/Bathe Self (QC): 6 Upper Body Dressing(FIM): 7 Upper Body Dressing (QC): 6 Lower Body Dressing(FIM): 7 Lower Body Dressing (QC): 6 On/Off Footwear (QC): 7 Toileting(FIM): 6 Toileting Hygiene (QC): 6 Transfers (B,C,W/C) (FIM): 6 Toilet/Commode Transfer(FIM): 6 Toilet/Commode Transfer (QC): 6 Tub Transfer(FIM): 6 Shower Transfer(FIM): 6 Additional Goals: 1-Demonstrate ADL Tasks, 2-Verbalize Understanding, 3- ImproveStrength/Reagan 1=Demonstrate adherence to instructed precautions during ADL tasks. 2=Patient will verbalize/demonstrate understanding of assistive devices/ modifications for ADL. 3=Patient will improve strength/tolerance for activity to enable patient to perform ADL's. OT Education/Plan Discharge Recommendations Plan/Recommendations: Continue POC Treatment Plan/Plan of Care Patient would benefit from OT for education, treatment and training to promote independence in ADL's, mobility, safety and/or upper extremity function for ADL's. Plan of Care: ADL Retraining, Caregiver Training, Functional Mobility, Group Exercise/Act as Ind, UE Funct Exercise/Act Treatment Duration: Apr 07, 2019 Frequency: At least 5 of 7 days/Wk (IRF) Estimated Hrs Per Day: 1 hour per day (1-1.5 hours per day) Agreement: Yes Rehab Potential: Fair Time/GCodes Start Time: 08:00 Stop Time: 09:00 Total Time Billed (hr/min): 60 Billed Treatment Time 1 visit, ADLx2(30minutes), FAx2(30minutes) REMI WILDER OT Apr 05, 2019 11:22
--- NOTE | 2019-04-05 13:23 | Occupational Ther Daily Note ---
OT Current Status-Daily Note Subjective Pt agreeable to therapy. Mental Status/Objective Therapy Code Descriptions/Definitions Functional [place] Measure: 0=Not Assessed/NA 4=Minimal Assistance 1=Total Assistance 5=Supervision or Setup 2=Maximal Assistance 6=Modified [place] 3=Moderate Assistance 7=Complete [place] ADL-Treatment Therapy Code Descriptions/Definitions Functional [place] Measure: 0=Not Assessed/NA 4=Minimal Assistance 1=Total Assistance 5=Supervision or Setup 2=Maximal Assistance 6=Modified [place] 3=Moderate Assistance 7=Complete [place] Therapy Quality Codes: 6 Independent with activity with or without an assistive device 5 Patient requires set up or clean up by helper. Patient completes activity by themselves 4 Supervision or touching assist (CGA). [place] provide cues , steadying assist 3 The helper provides less than half the effort to complete the activity 2 The helper provides more than half the effort to complete the activity 1 Dependent. The helper does all the effort to complete an activity 7 Patient refused to complete or attempt activity 9 The patient did not perform the activity before the current illness or injury 88 Not attempted due to Medical conditions or safety concerns Other Treatment Pt performed gait to therapy gym with FWW. Bilateral UE exercises to increase strength needed for ADLs and transfers. Pt performed four exercises x10 reps with moderate resistance(red) theraband. Rest breaks between exercises. Occasional cues required for proper exercise technique. Arm bike x10 minutes to increase overall strength and activity tolerance needed for functional task completion. Pt completed activity with moderate resistance and slow pace. No rest breaks needed. Pt returned to room and transferred to toilet with supervision. Pt sitting on toilet with pull cord in reach after session. OT Short Term Goals Short Term Goals Grooming(FIM): 7 Transfers (B,C,W/C) (FIM): 6 Toilet/Commode Transfer(FIM): 6 1=Demonstrate adherence to instructed precautions during ADL tasks. 2=Patient will verbalize/demonstrate understanding of assistive devices/modifications for ADL. 3=Patient will improve strength/tolerance for activity to enable patient to perform ADL's. OT Mcc Goals Mcc Goals Eating (FIM): 7 Eating (QC): 6 Groomin Oral Hygiene (QC): 6 Bathing(FIM): 6 Shower/Bathe Self (QC): 6 Upper Body Dressing(FIM): 7 Upper Body Dressing (QC): 6 Lower Body Dressing(FIM): 7 Lower Body Dressing (QC): 6 On/Off Footwear (QC): 7 Toileting(FIM): 6 Toileting Hygiene (QC): 6 Transfers (B,C,W/C) (FIM): 6 Toilet/Commode Transfer(FIM): 6 Toilet/Commode Transfer (QC): 6 Tub Transfer(FIM): 6 Shower Transfer(FIM): 6 Additional Goals: 1-Demonstrate ADL Tasks, 2-Verbalize Understanding, 3- ImproveStrength/Reagan 1=Demonstrate adherence to instructed precautions during ADL tasks. 2=Patient will verbalize/demonstrate understanding of assistive devices/modifications for ADL. 3=Patient will improve strength/tolerance for activity to enable patient to perform ADL's. OT Education/Plan Discharge Recommendations Plan/Recommendations: Continue POC Treatment Plan/Plan of Care Patient would benefit from OT for education, treatment and training to promote independence in ADL's, mobility, safety and/or upper extremity function for ADL's. Plan of Care: ADL Retraining, Caregiver Training, Functional Mobility, Group Exercise/Act as Ind, UE Funct Exercise/Act Treatment Duration: Apr 07, 2019 Frequency: At least 5 of 7 days/Wk (IRF) Estimated Hrs Per Day: 1 hour per day (1-1.5 hours per day) Agreement: Yes Rehab Potential: Fair Time/GCodes Start Time: 11:00 Stop Time: 11:30 Total Time Billed (hr/min): 30 Billed Treatment Time 1 visit, EXx2(30minutes) REMI WILDER OT Apr 05, 2019 13:23
--- NOTE | 2019-04-05 14:48 | Physical Therapy Daily Note ---
PT Daily Note-Current Subjective Agrees to PT., Reports her knee is stiff. Pain Numeric Pain Scale: 8 Location: Left Location Body Site: Knee Pain Description: Ache Comment: PT took pain meds during session Transfers Therapy Code Descriptions/Definitions Functional [place] Measure: 0=Not Assessed/NA 4=Minimal Assistance 1=Total Assistance 5=Supervision or Setup 2=Maximal Assistance 6=Modified [place] 3=Moderate Assistance 7=Complete [place] Therapy Quality Codes: 6 Independent with activity with or without an assistive device 5 Patient requires set up or clean up by helper. Patient completes activity by themselves 4 Supervision or touching assist (CGA). [place] provide cues , steadying assist 3 The helper provides less than half the effort to complete the activity 2 The helper provides more than half the effort to complete the activity 1 Dependent. The helper does all the effort to complete an activity 7 Patient refused to complete or attempt activity 9 The patient did not perform the activity before the current illness or injury 88 Not attempted due to Medical conditions or safety concerns Transfers (B, C, W/C) (FIM): 5 Weight Bearing Right Lower Extremity: Right Weight Bearing/Tolerated Left Lower Extremity: Left Weight Bearing/Tolerated Gait Training Gait (FIM): 5 Distance (FIM): 3=150 ft Distance: 150 ft x 4 Exercises NuStep Minutes: 15 (To decreae stiffness nd pain in left knee.) Treatments CPM applied post treatmeht 0-78 degrees. Cold pack applied Assessment Current Status: Good Progress PT Short Term Goals Short Term Goals Time Frame: Apr 07, 2019 Transfers (B,C,W/C) (FIM): 6 Gait (FIM): 5 Gait Distance Comment: 500' Gait Level of Assist: 5 Gait Assistive Device: FWW PT Painter Aircraft Goals Painter Aircraft Goals PT Painter Aircraft Goals Time Frame: Apr 21, 2019 Transfers (B,C,W/C) (FIM): 6 Sit to Lying (QC): 6 Lying-Sitting on Side/Bed(QC): 6 Sit to Stand (QC): 6 Rollin Roll Left to Right (QC): 6 Chair/Yup-un-Qiivm Xfer(QC): 6 Car Transfer (QC): 6 Gait (FIM): 6 Distance: 500' Walk 10 feet (QC): 6 Walk 10ft-Uneven Surface(QC): 6 Walk 50ft with 2 Turns (QC): 6 Walk 150 ft (QC): 6 Gait Level of Assist: 6 Gait Assistive Device: FWW Stairs (FIM): 2 # of Steps: 4 1 Step (curb) (QC): 4 4 Steps (QC): 4 Stairs Level Of Assist: 5 PT Plan Problem List Problem List: Activity Tolerance, Functional Strength, Safety Treatment/Plan Treatment Plan: Continue Plan of Care Treatment Plan: Bed Mobility, Education, Functional Activity Reagan, Functional Strength, Group Therapy, Gait, Safety, Therapeutic Exercise, Transfers Treatment Duration: Apr 01, 2019 Frequency: At least 5 of 7 days/Wk (IRF) Estimated Hrs Per Day: 1.5 hours per day Patient and/or Family Agrees t: Yes Time/GCodes Time In: 1415 Time Out: 1445 Total Billed Treatment Time: 30 Total Billed Treatment vsit GT 15 EX 15 PREET HENSON PT Apr 05, 2019 14:48
--- NOTE | 2019-04-05 14:50 | NUR ---
NIB FINISHER met with patient to review team conference summary. As patient is performing all activities with standby assist and will has family staying with her discharge, team feels confident with patient discharging home on 914 with outpatient PT. Patient is agreeable to this and has requested [facility] for outpatient PT. NIB FINISHER will send order for services and requests that outpatient therapy contact patient directly to schedule assessment. Patient is a front-wheeled walker for home use and is obtaining a tub shower transfer bench prior to discharge.
[2019-04-05 17:14] VITALS: BP 145/72
[2019-04-05] MEDS: GABAPENTIN 300 MG (NEURONTIN) CAP PO SCH (21:54)
[2019-04-05] MEDS: amLODIPine 5 MG (NORVASC) TAB PO SCH (21:55)
[2019-04-05] MEDS: MELATONIN 3 MG TABLET PO PRN (21:57)
[2019-04-06] MEDS: LEVOTHYROXINE 50 MCG (LEVOTHROID) TAB PO SCH (06:14)
[2019-04-06] MEDS: PANTOPRAZOLE 40 MG (PROTONIX) TAB PO SCH (06:14)
[2019-04-06 06:30] VITALS: BP 135/73
--- NOTE | 2019-04-06 07:41 | Progress Note ---
[facility] STUD 04/06/19 0741: Subjective Date Seen by a Provider: Apr 06, 2019 Time Seen by a Provider: 07:20 Subjective/Events-last exam Vitals are normal and stable. Slept straight through the night. Best sleep she has had since being here. Voiding and stooling well. She discussed the game plan to keep her bowels moving She said PT/OT went well. Gotten more space to be more active. Feels more independent. Swelling reduced in L leg. Pain is only occuring with movement. ROS: + : n/a - : N/V/D, Chest pain/SOB, Syncope/palpitations, Vertigo/STALEY Discussed Elevating the L LE to help draw out the excess fluid and swelling. Talked about hydration and diet high in fiber to keep bowel moving Talked about continuing antinausea while still on pain meds. Objective Exam Last Set of Vital Signs Vital Signs Date Time Temp Pulse Resp B/P (MAP) Pulse Ox O2 Delivery O2 Flow Rate FiO2 04/06/19 06:30 35.9 59 14 135/73 90 Room Air Capillary Refill : I&O Intake and Output 04/06/19 00:00 Intake Total 1970 ml Balance 1970 ml Intake Oral 1970 ml # Voids 8 # Bowel Movements 4 General: Alert, Oriented X3, Cooperative, No Acute Distress Lungs: Clear to Auscultation, Normal Air Movement Heart: Regular Rate, No Murmurs Abdomen: No Tenderness Assessment/Plan Assessment/Plan Assess & Plan/Chief Complaint Assessment: 1. Constipation 2. Leg Pain Plan: 1. Restart laxatives 2. Maintain pain meds ahead of pain. 3. PT/OT work with pain. Clinical Quality Measures DVT/VTE Risk/Contraindication: Risk Factor Score Per Nursin RFS Level Per Nursing on Admit: 4+=Very High ELVIA HURTADO DO 04/07/19 1057: Supervisory-Addendum Brief Verification & Attestation Participated in pt care: history, MDM, physical Personally performed: exam, history, MDM, supervision of care Care discussed with: Medical Student Procedures: n/a Results interpretation: Verified all documentation Verification and Attestation of Medical Student E/M Service A medical student performed and documented this service in my presence. I reviewed and verified all information documented by the medical student and made modifications to such information, when appropriate. I personally performed the physical exam and medical decision making. Elvia Hurtado, Apr 07, 2019,10:[address] [facility] Apr 06, 2019 07:41 ELVIA HURTADO DO Apr 07, 2019 10:57
[2019-04-06] MEDS: LABETALOL 200 MG (NORMODYNE) TAB PO SCH ×2 (08:08→21:19)
[2019-04-06] MEDS: LOSARTAN 100 MG (COZAAR) TABLET PO SCH (08:08)
[2019-04-06] MEDS: ASPIRIN E.C. 81 MG (ECOTRIN) TAB PO SCH (08:08)
[2019-04-06] MEDS: HYDROcodone/APAP 5 MG/325 MG (LORTAB) TAB PO PRN ×3 (08:10→21:48)
[2019-04-06] MEDS: DOCUSATE SODIUM 100 MG (COLACE) CAP PO SCH ×2 (08:11→21:19)
[2019-04-06 08:13] VITALS: BP 161/75
[2019-04-06] MEDS ORDERED: ACHD5005 PO (08:39)
[2019-04-06] MEDS ORDERED: ASPI-983 PO (08:39)
[2019-04-06] MEDS ORDERED: LACT20SO2 PO (08:59)
[2019-04-06] MEDS ORDERED: ONDA4TAB11 PO (08:59)
[2019-04-06] MEDS: POLYETHYLENE GLYCOL 17 GM (MIRALAX) PACK PO SCH ×2 (09:00→21:24)
[2019-04-06] MEDS: SENNA W/DOCUSATE (SENOKOT S) TABLET PO SCH ×2 (09:00→21:24)
[2019-04-06] MEDS: LACTULOSE SYRUP 10GM/15ML (ENULOSE) 30ML UDC PO SCH ×2 (09:00→21:24)
--- NOTE | 2019-04-06 09:33 | PM&R Progress Note ---
Subjective HPI/CC On Admission Date Seen by Provider: Apr 06, 2019 Time Seen by Provider: 09:00 CC: Debility following left knee replacement HPI: This is an 83yoWF clinic pt of Dr. Patino who is s/p uncomplicated left knee replacement by Dr. Granado, but because she lives alone and due to her age and mild cognitive defect it was felt that she would benefit from 5 days of inpatient rehab in order to be successful at home and decrease fall risk an overall post op complications. She had never had a surgery before in all of her 83 years so she was at risk to have complications just from anesthesia and pain meds so will monitor that closely. She had a BM right before she left [place] but it was very small and she is asking for more laxatives but is urinating without any problems and her Hgb remains stable at 9.0. Her prior level of function ing was the use of assistive devices and she was independent with ADLs. Subjective/Events-last exam Discharge is planned for Wednesday. Up ad-antonio at home. A little bit impulsive still but pretty much improved. Left lower extremity edema is mild. Bowel regimen at discharge will be the Senna she takes on a regular basis but Lactulose BID. I did send in some Zofran for the nausea she sometimes has with the pain pills. Check meds and labs Conferred with RN Reviewed therapy notes Reassured patient Checked labs this morning Ambulating very well Aspirin for DVT prophylaxis Review of Systems Musculoskeletal: leg pain Objective Exam Vital Signs Vital Signs Date Time Temp Pulse Resp B/P (MAP) Pulse Ox O2 Delivery O2 Flow Rate FiO2 04/07/19 09:17 82 150/74 04/07/19 09:00 Room Air 04/07/19 05:59 37.3 16 100 Capillary Refill : General Appearance: No Apparent Distress, WD/WN, Chronically ill HEENT: PERRL/EOMI, Normal ENT Inspection, Pharynx Normal, Moist Mucous Membranes Neck: Full Range of Motion, Normal Inspection, Non Tender, Supple Respiratory: Chest Non Tender, Lungs Clear, Normal Breath Sounds, No Accessory Muscle Use, No Respiratory Distress Cardiovascular: Regular Rate, Rhythm, No Edema, No Gallop, No JVD, No Murmur Gastrointestinal: Normal Bowel Sounds, No Organomegaly, No Pulsatile Mass, Non Tender, Soft Back: Normal Inspection, No CVA Tenderness, No Vertebral Tenderness Extremity: Normal Capillary Refill, Normal Inspection, Normal Range of Motion (except left leg due to knee pain), Non Tender, No Calf Tenderness, No Pedal Edema Neurologic/Psychiatric: Alert, Oriented x3, No Motor/Sensory Deficits, Normal Mood/Affect Skin: Normal Color, Warm/Dry Lymphatic: No Adenopathy Results/Procedures Lab Patient resulted labs reviewed. FIM Transfers Therapy Code Descriptions/Definitions Functional [place] Measure: 0=Not Assessed/NA 4=Minimal Assistance 1=Total Assistance 5=Supervision or Setup 2=Maximal Assistance 6=Modified [place] 3=Moderate Assistance 7=Complete [place] Therapy Quality Codes: 6 Independent with activity with or without an assistive device 5 Patient requires set up or clean up by helper. Patient completes activity by themselves 4 Supervision or touching assist (CGA). [place] provide cues , steadying assist 3 The helper provides less than half the effort to complete the activity 2 The helper provides more than half the effort to complete the activity 1 Dependent. The helper does all the effort to complete an activity 7 Patient refused to complete or attempt activity 9 The patient did not perform the activity before the current illness or injury 88 Not attempted due to Medical conditions or safety concerns Transfers (B, C, W/C) (FIM): 5 Scootin Rollin Roll Left to Right (QC): 4 Supine to/from Sit: 5 Sit to/from Stand: 5 (Multiple varied surfaces throughout treatment; skilled cues for sequencing and safety.) Sit to Lying (QC): 4 Sit to Stand (QC): 4 Chair/Szb-fe-Evzem Xfer(QC): 4 Car Transfer (QC): 3 Gait Training Does the Patient Walk?: Yes Gait (FIM): 5 Distance (FIM): 3=150 ft Distance: 150 ft x 4 Walk 10 feet (QC): 4 Walk 50 ft with 2 Turns(QC): 4 Walk 150 ft (QC): 4 Walking 10ft/uneven surface-QC: 4 Gait Level of Assist: 5 Gait Persons Needed: 1 Gait Assistive Device: FWW Wheelchair Training Does the Pt Use a Wheelchair?: No Stair Training Stair Training: Handrails/: 1 handrail Stairs (FIM): 2 #of Steps: 3 1 Step (curb) (QC): 4 Stairs: Pattern: Step to Level of Assist: 4 (CGA provided) Mental Status/Objective Comprehension: 7 Expression: 7 Social Interaction: 7 Problem Solvin Memory: 7 ADL-Treatment Feedin Eating (QC): 6 Groomin Oral Hygiene (QC): 6 Bathin (SPV for ssafety/ balance. pt requried set up) Bathing Location: L Arm, R Arm, L Upper Leg, R Upper Leg, L Lower Leg (including foot), R Lower Leg (including foot), Chest, Abdomen, Buttocks, Perineal Area Shower/Bathe Self (QC): 6 Upper Extremity Dressin (setup) Upper Body Dressing (QC): 6 Lower Extremity Dressin (carolyn socks, underpatns, pants ) Lower Body Dressing (QC): 4 (SBA) On/Off Footwear (QC): 5 Toiletin (SBA for safety/ balance ) Toileting Hygiene (QC): 6 Toilet/Commode Transfer: 5 Toilet Transfer (QC): 6 Shower: 5 (SBA for safety/ balance. use of shower NIELS espinal ) Assessment/Plan Assessment and Plan Assess & Plan/Chief Complaint Assessment: s/p left knee replacement uncomplicated by Dr Granado at [facility] POD # 9 HTN Hypothyroidism Neuropathy Post op anemia Post op constipation now resolved but maintained on meds GERD OA Mild cognition deficit possibly related to anesthesia now resolved Plan: IRF protocol Pain control Monitor hgb BM regimen Monitor BP DC planning for Wednesday when her daughter will come to town to stay 1 week with her (1) Status post left knee replacement Status: Acute (2) Constipation by delayed colonic transit Status: Acute (3) Osteoarthritis Status: Chronic Qualifiers: Osteoarthritis location: unspecified site Osteoarthritis type: unspecified Qualified Codes: M19.90 - Unspecified osteoarthritis, unspecified site (4) Neuropathy Status: Chronic (5) Hypertension Status: Chronic Qualifiers: Hypertension type: essential hypertension Qualified Codes: I10 - Essential (primary) hypertension (6) GERD without esophagitis Status: Chronic (7) Postoperative anemia Status: Acute (8) Cognitive decline Status: Chronic (9) Advanced age Status: Chronic KAVON HURTADO DO Apr 06, 2019 09:33
--- NOTE | 2019-04-06 11:35 | Physical Therapy Daily Note ---
PT Daily Note-Current Subjective Pt is agreeable to PT. Pt reports she feels ready to go home on Wednesday. Transfers Therapy Code Descriptions/Definitions Functional [place] Measure: 0=Not Assessed/NA 4=Minimal Assistance 1=Total Assistance 5=Supervision or Setup 2=Maximal Assistance 6=Modified [place] 3=Moderate Assistance 7=Complete [place] Therapy Quality Codes: 6 Independent with activity with or without an assistive device 5 Patient requires set up or clean up by helper. Patient completes activity by themselves 4 Supervision or touching assist (CGA). [place] provide cues , steadying assist 3 The helper provides less than half the effort to complete the activity 2 The helper provides more than half the effort to complete the activity 1 Dependent. The helper does all the effort to complete an activity 7 Patient refused to complete or attempt activity 9 The patient did not perform the activity before the current illness or in jury 88 Not attempted due to Medical conditions or safety concerns Transfers (B, C, W/C) (FIM): 6 Supine to/from Sit: 6 Sit to/from Stand: 6 Pt is mod indep with all functional transfers this date. Improved safety and recognition of safety concerns. Weight Bearing Right Lower Extremity: Right Weight Bearing/Tolerated Left Lower Extremity: Left Weight Bearing/Tolerated Gait Training Does the Patient Walk?: Yes Gait (FIM): 5 Distance (FIM): 3=150 ft Distance: >500 ft Gait Assistive Device: FWW Focused on posture and heel strike / toe off with cues for safety and safety awareness; also worked on controlling her speed to improve safety. Walked to encounter obstacles, slope (up/down) and short outdoor surface. Pt is SBA for safety and cues. Pt also transferred on/off a park bench . Exercises Supine Ex: Ankle pumps, Quad Set, Glut sets, Heel Slides, Short Arc Quads, Straight leg raise, Hip abd/add Supine Reps: 15 (Ther ex indicated for quad strength and knee ROM for normalized gait; pt requires skilled cues throughout to complete task completely. ) Treatments Pt in CPM post treatment, 0-80 degrees. Assessment Current Status: Good Progress Progressing. Pt is distracted easily and enjoys visiting with others during treatment. Requires cues to stay on task and for correct performance of ther ex. functional safety has improved this date. PT Short Term Goals Short Term Goals Time Frame: Apr 07, 2019 Transfers (B,C,W/C) (FIM): 6 (met) Gait (FIM): 5 (met) Gait Distance Comment: 500' Gait Level of Assist: 5 Gait Assistive Device: FWW PT Prop Attendant Goals Prop Attendant Goals PT Prop Attendant Goals Time Frame: Apr 21, 2019 Transfers (B,C,W/C) (FIM): 6 Sit to Lying (QC): 6 Lying-Sitting on Side/Bed(QC): 6 Sit to Stand (QC): 6 Rollin Roll Left to Right (QC): 6 Chair/Ups-zt-Ykwfy Xfer(QC): 6 Car Transfer (QC): 6 Gait (FIM): 6 Distance: 500' Walk 10 feet (QC): 6 Walk 10ft-Uneven Surface(QC): 6 Walk 50ft with 2 Turns (QC): 6 Walk 150 ft (QC): 6 Gait Level of Assist: 6 Gait Assistive Device: FWW Stairs (FIM): 2 # of Steps: 4 1 Step (curb) (QC): 4 4 Steps (QC): 4 Stairs Level Of Assist: 5 PT Plan Problem List Problem List: Activity Tolerance, Functional Strength, Safety Treatment/Plan Treatment Plan: Continue Plan of Care Treatment Plan: Bed Mobility, Education, Functional Activity Reagan, Functional Strength, Group Therapy, Gait, Safety, Therapeutic Exercise, Transfers Treatment Duration: Apr 01, 2019 Frequency: At least 5 of 7 days/Wk (IRF) Estimated Hrs Per Day: 1.5 hours per day Patient and/or Family Agrees t: Yes Safety Risks/Education Patient Education: Safety Issues Teaching Recipient: Patient Teaching Methods: Discussion Response to Teaching: Return Demonstration Time/GCodes Time In: 900 Time Out: 1000 Total Billed Treatment Time: 60 Total Billed Treatment visit GT 30 EX 30 PREET HENSON PT Apr 06, 2019 11:35
--- NOTE | 2019-04-06 12:08 | Occupational Ther Daily Note ---
OT Current Status-Daily Note Subjective Pt seen in room, up in bed, agreeable to OT. No pain mentioned. Appearance Alert, cooperative. Anticipating DC on Wednesday to home, with daughter to help her. Mental Status/Objective Therapy Code Descriptions/Definitions Functional [place] Measure: 0=Not Assessed/NA 4=Minimal Assistance 1=Total Assistance 5=Supervision or Setup 2=Maximal Assistance 6=Modified [place] 3=Moderate Assistance 7=Complete [place] ADL-Treatment Pt got up from bed without help, then walked SBA, FWW to closet to retrieve clean clothing, which she draped over walker. Walked SBA, FWW to bathroom. Completed toileting with modified indep, including clothing management and hygiene. Walked SBA, FWW to shower and transferred in/out of shower and on/off shower bench with SBA. Pt undressed without help, including slipper socks. Pt washed and dried all parts using shower bench, grab bars, hand held shower, with setup. Dressed with mod I, including donning slipper socks. Walked SBA, FWW to recliner at end of tx, with no LOB or cues needed for safety. pt left up in recliner, all needs met. Therapy Code Descriptions/Definitions Functional [place] Measure: 0=Not Assessed/NA 4=Minimal Assistance 1=Total Assistance 5=Supervision or Setup 2=Maximal Assistance 6=Modified [place] 3=Moderate Assistance 7=Complete [place] Therapy Quality Codes: 6 Independent with activity with or without an assistive device 5 Patient requires set up or clean up by helper. Patient completes activity by themselves 4 Supervision or touching assist (CGA). [place] provide cues , steadying ass ist 3 The helper provides less than half the effort to complete the activity 2 The helper provides more than half the effort to complete the activity 1 Dependent. The helper does all the effort to complete an activity 7 Patient refused to complete or attempt activity 9 The patient did not perform the activity before the current illness or injury 88 Not attempted due to Medical conditions or safety concerns Bathing (FIM): 5 (setup) Upper Body (FIM): 6 Lower Body Dressing (FIM): 6 Toileting (FIM): 6 Toilet/Commode Transfer (FIM): 6 Shower Transfer(FIM): 5 Education OT Patient Education: Modified ADL techniques, Progress toward Goal/Update tx plan, Purpose of tx/functional activities, Safety issues Teaching Recipient: Patient Teaching Methods: Demonstration, Discussion Response to Teaching: Verbalize Understanding, Return Demonstration OT Short Term Goals Short Term Goals Grooming(FIM): 7 Transfers (B,C,W/C) (FIM): 6 (met) Toilet/Commode Transfer(FIM): 6 1=Demonstrate adherence to instructed precautions during ADL tasks. 2=Patient will verbalize/demonstrate understanding of assistive devices/modifications for ADL. 3=Patient will improve strength/tolerance for activity to enable patient to perform ADL's. OT Retirement Goals Fleet Service Manager Goals Eating (FIM): 7 Eating (QC): 6 Groomin Oral Hygiene (QC): 6 Bathing(FIM): 6 Shower/Bathe Self (QC): 6 Upper Body Dressing(FIM): 7 Upper Body Dressing (QC): 6 Lower Body Dressing(FIM): 7 Lower Body Dressing (QC): 6 On/Off Footwear (QC): 7 Toileting(FIM): 6 Toileting Hygiene (QC): 6 Transfers (B,C,W/C) (FIM): 6 Toilet/Commode Transfer(FIM): 6 Toilet/Commode Transfer (QC): 6 Tub Transfer(FIM): 6 Shower Transfer(FIM): 6 Additional Goals: 1-Demonstrate ADL Tasks, 2-Verbalize Understanding, 3- ImproveStrength/Reagan 1=Demonstrate adherence to instructed precautions during ADL tasks. 2=Patient will verbalize/demonstrate understanding of assistive d evices/modifications for ADL. 3=Patient will improve strength/tolerance for activity to enable patient to perform ADL's. OT Education/Plan Discharge Recommendations Plan/Recommendations: Continue POC Treatment Plan/Plan of Care Patient would benefit from OT for education, treatment and training to promote independence in ADL's, mobility, safety and/or upper extremity function for ADL's. Plan of Care: ADL Retraining, Caregiver Training, Functional Mobility, Group Exercise/Act as Ind, UE Funct Exercise/Act Treatment Duration: Apr 07, 2019 Frequency: At least 5 of 7 days/Wk (IRF) Estimated Hrs Per Day: 1 hour per day (1-1.5 hours per day) Agreement: Yes Rehab Potential: Fair Time/GCodes Start Time: 11:03 Stop Time: 12:03 Total Time Billed (hr/min): 60 Billed Treatment Time Visit, 60 minutes ADL ALBERT GRANT OT Apr 06, 2019 12:07
--- NOTE | 2019-04-06 14:43 | Therapy Group Daily Note ---
Therapy Daily Group Note Patient Education Topic Exercises Exercises LE Seated Exercise, ROM, UE Exercise Session Ratio (pt:therapist): 4:1 Goal of Session: UE/LE Strengthing Goals of this session include providing pt with interaction opportunities with other patients in similar situations; in addition functional strength activity and understanding of need for exercise is a goal Goal Met for this Session: Yes Pt Benefit of Group: Contributions to Others, Increased Functional Strength Pt benefits from group as she seemed to enjoy the interction with others and appropriately visited with others. In addion, she performed LE ther ex to promote strength for gait and transfers paired with UE strength for improved self care. Other/Notes Introductions paired with memories of 04/05; This patient remembered other patients and their names from previous meetings. She then was attentive to education on functional exercise importance. Ther ex performed with patient led exercises; she followed the instructions to complete and exercise and demonstrated it to the group. She counted the reps and effectively showed the other patients how to do his given exercise. Pt came to and exited group via ambulation with a FWW mod indep Pt in room post treatment with needs met. Start Time: 13:00 Stop Time: 14:10 Total Billed Treatment Time: 70 Total Billed Treatment visit GRP 70 PREET HENSON PT Apr 06, 2019 14:43
[2019-04-06 16:09] VITALS: BP 114/62
[2019-04-06] MEDS: GABAPENTIN 300 MG (NEURONTIN) CAP PO SCH (21:19)
[2019-04-06] MEDS: amLODIPine 5 MG (NORVASC) TAB PO SCH (21:19)
[2019-04-07] MEDS: HYDROcodone/APAP 5 MG/325 MG (LORTAB) TAB PO PRN ×4 (03:38→21:44)
[2019-04-07] MEDS: LEVOTHYROXINE 50 MCG (LEVOTHROID) TAB PO SCH (05:55)
[2019-04-07] MEDS: PANTOPRAZOLE 40 MG (PROTONIX) TAB PO SCH (05:55)
[2019-04-07 05:59] VITALS: BP 112/53
[2019-04-07 09:17] VITALS: BP 150/74
[2019-04-07] MEDS: DOCUSATE SODIUM 100 MG (COLACE) CAP PO SCH ×2 (09:17→21:42)
[2019-04-07] MEDS: ASPIRIN E.C. 81 MG (ECOTRIN) TAB PO SCH (09:17)
[2019-04-07] MEDS: LOSARTAN 100 MG (COZAAR) TABLET PO SCH (09:18)
[2019-04-07] MEDS: LABETALOL 200 MG (NORMODYNE) TAB PO SCH ×2 (09:18→21:43)
[2019-04-07] MEDS: LACTULOSE SYRUP 10GM/15ML (ENULOSE) 30ML UDC PO SCH ×2 (09:58→21:45)
[2019-04-07] MEDS: POLYETHYLENE GLYCOL 17 GM (MIRALAX) PACK PO SCH ×2 (09:58→21:45)
[2019-04-07] MEDS: SENNA W/DOCUSATE (SENOKOT S) TABLET PO SCH ×2 (09:58→21:45)
--- NOTE | 2019-04-07 10:30 | NUR ---
Pastoral care visit.
--- NOTE | 2019-04-07 12:06 | Physical Therapy Daily Note ---
PT Daily Note-Current Subjective Pt. states she is not sure she will have her other knee done as she is still so shocked at how painful this has been. Pt. states pain in her left knee is presently 7/10. Pain Numeric Pain Scale: 7 Location: Left Location Body Site: Knee Pain Description: Ache Mental Status Patient Orientation: Normal For Age Transfers Therapy Code Descriptions/Definitions Functional [place] Measure: 0=Not Assessed/NA 4=Minimal Assistance 1=Total Assistance 5=Supervision or Setup 2=Maximal Assistance 6=Modified [place] 3=Moderate Assistance 7=Complete [place] Therapy Quality Codes: 6 Independent with activity with or without an assistive device 5 Patient requires set up or clean up by helper. Patient completes activity by themselves 4 Supervision or touching assist (CGA). [place] provide cues , steadying assist 3 The helper provides less than half the effort to complete the activity 2 The helper provides more than half the effort to complete the activity 1 Dependent. The helper does all the effort to complete an activity 7 Patient refused to complete or attempt activity 9 The patient did not perform the activity before the current illness or injury 88 Not attempted due to Medical conditions or safety concerns Transfers (B, C, W/C) (FIM): 6 Scootin Rollin Roll Left to Right (QC): 6 Supine to/from Sit: 6 Sit to/from Stand: 6 Sit to Lying (QC): 6 Sit to Stand (QC): 6 Chair/Lju-mu-Iicfm Xfer(QC): 6 Bed to/from Chair: 6 Car Transfer (QC): 6 Weight Bearing Right Lower Extremity: Right Weight Bearing/Tolerated Left Lower Extremity: Left Weight Bearing/Tolerated Gait Training Does the Patient Walk?: Yes Gait (FIM): 6 Distance (FIM): 3=150 ft (200x2) Walk 10 feet (QC): 6 Walk 50 ft with 2 Turns(QC): 6 Walk 150 ft (QC): 6 Walking 10ft/uneven surface-QC: 6 Gait Level of Assist: 6 Gait Persons Needed: 0 Gait Assistive Device: FWW Stair Training Stair Training: Handrails/: 2 handrails Stairs (FIM): 5 #of Steps: 4 1 Step (curb) (QC): 5 4 Steps (QC): 6 Stairs: Pattern: Step to Level of Assist: 5 review of sequence only Balance Special Test Comments unsafe to trial Exercises Supine Ex: Ankle pumps, Quad Set, Rolling, Glut sets, Heel Slides, Short Arc Quads, Scooting, Straight leg raise, Hip abd/add Supine Reps: 15 NuStep Minutes: 10 NuStep Workload: 5 Treatments nustep with one on one with instruction for increased knee flexion, stretching and extension Assessment Current Status: Good Progress meets goals PT Short Term Goals Short Term Goals Time Frame: Apr 07, 2019 Transfers (B,C,W/C) (FIM): 6 (met) Gait (FIM): 5 (met) Gait Distance Comment: 500' Gait Level of Assist: 5 Gait Assistive Device: FWW PT Cushion Assembler Goals Cushion Assembler Goals PT Cushion Assembler Goals Time Frame: Apr 21, 2019 Transfers (B,C,W/C) (FIM): 6 Sit to Lying (QC): 6 Lying-Sitting on Side/Bed(QC): 6 Sit to Stand (QC): 6 Rollin Roll Left to Right (QC): 6 Chair/Atc-lz-Kupfe Xfer(QC): 6 Car Transfer (QC): 6 Gait (FIM): 6 Distance: 500' Walk 10 feet (QC): 6 Walk 10ft-Uneven Surface(QC): 6 Walk 50ft with 2 Turns (QC): 6 Walk 150 ft (QC): 6 Gait Level of Assist: 6 Gait Assistive Device: FWW Stairs (FIM): 2 # of Steps: 4 1 Step (curb) (QC): 4 4 Steps (QC): 4 Stairs Level Of Assist: 5 PT Plan Treatment/Plan Treatment Plan: Continue Plan of Care Treatment Plan: Bed Mobility, Education, Functional Activity [place], Functional Strength, Group Therapy, Gait, Safety, Therapeutic Exercise, Transfers Treatment Duration: Apr 01, 2019 Frequency: At least 5 of 7 days/Wk (IRF) Estimated Hrs Per Day: 1.5 hours per day Patient and/or Family Agrees t: Yes Safety Risks/Education Patient Education: Gait Training, Transfer Techniques, Steps, Correct Positioning, Disease Process, Safety Issues Teaching Recipient: Patient Teaching Methods: Demonstration, Discussion Response to Teaching: Verbalize Understanding, Return Demonstration, Reinforcement Needed Time/GCodes Time In: 1100 Time Out: 1200 Total Billed Treatment Time: 60 Total Billed Treatment 1,EX30m,GT15m,FA15m NATALY MONTOYA CLINICAL ATHLETIC INSTRUCTOR Apr 07, 2019 12:06
--- NOTE | 2019-04-07 12:37 | Occupational Ther Daily Note ---
OT Current Status-Daily Note Subjective Pt sitting in chair, agrees to therapy. Mental Status/Objective Therapy Code Descriptions/Definitions Functional [place] Measure: 0=Not Assessed/NA 4=Minimal Assistance 1=Total Assistance 5=Supervision or Setup 2=Maximal Assistance 6=Modified [place] 3=Moderate Assistance 7=Complete [place] ADL-Treatment Pt sit to stand with modified independence. Gait to restroom with FWW. Transfer to [facility] over toilet with modified independence. Pt demonstrates ability to perform toileting tasks with modified independence. Pt doffed clothing without assist. Transfer to walk in shower with modified independence using grab bar for safety. Seated bathing completed using hand held shower. Pt able to wash/dry all areas with modified independence. Pt donned dress and sweater with modified independence. Retrieved underwear from suitcase without assist using FWW for balance. Don underwear and socks with modified independence. Pt stood at sink to brush teeth and comb hair independently. Education provided regarding ADL/home safety. Pt states understanding of education and has no questions or concerns at this time. Plan is for pt to d/c home tomorrow. Daughter will be staying with her for one week. Pt sitting in chair with needs met after session. Therapy Code Descriptions/Definitions Functional [place] Measure: 0=Not Assessed/NA 4=Minimal Assistance 1=Total Assistance 5=Supervision or Setup 2=Maximal Assistance 6=Modified [place] 3=Moderate Assistance 7=Complete [place] Therapy Quality Codes: 6 Independent with activity with or without an assistive device 5 Patient requires set up or clean up by helper. Patient completes activity by themselves 4 Supervision or touching assist (CGA). [place] provide cues , steadying assist 3 The helper provides less than half the effort to complete the activity 2 The helper provides more than half the effort to complete the activity 1 Dependent. The helper does all the effort to complete an activity 7 Patient refused to complete or attempt activity 9 The patient did not perform the activity before the current illness or inju ry 88 Not attempted due to Medical conditions or safety concerns Eating (FIM): 7 (Pt reports feeding self and managing containers without assist.) Eating (QC): 6 Grooming (FIM): 7 Oral Hygiene (QC): 6 Bathing (FIM): 6 Shower/Bathe Self (QC): 6 Upper Body (FIM): 6 Upper Body Dressing (QC): 6 Lower Body Dressing (FIM): 6 Lower Body Dressing (QC): 6 On/Off Footwear (QC): 6 Toileting (FIM): 6 Toileting Hygiene (QC): 6 Toilet/Commode Transfer (FIM): 6 Toilet Transfer (QC): 6 Shower Transfer(FIM): 6 Education OT Patient Education: Safety issues Teaching Recipient: Patient Teaching Methods: Discussion Response to Teaching: Verbalize Understanding OT Short Term Goals Short Term Goals Grooming(FIM): 7 Transfers (B,C,W/C) (FIM): 6 (met) Toilet/Commode Transfer(FIM): 6 1=Demonstrate adherence to instructed precautions during ADL tasks. 2=Patient will verbalize/demonstrate understanding of assistive devices/modifications for ADL. 3=Patient will improve strength/tolerance for activity to enable patient to perform ADL's. OT Prison Goals Head Of Digital Advertising & Integration Goals Eating (FIM): 7 (met 04/07/18) Eating (QC): 6 (6-MET) Groomin (met 04/07/18) Oral Hygiene (QC): 6 (6-MET) Bathing(FIM): 6 (met 04/07/18) Shower/Bathe Self (QC): 6 (6-MET) Upper Body Dressing(FIM): 7 (not met) Upper Body Dressing (QC): 6 (6-MET) Lower Body Dressing(FIM): 7 (not met) Lower Body Dressing (QC): 6 (6-MET) On/Off Footwear (QC): 7 (6-not met) Toileting(FIM): 6 (met 04/07/18) Toileting Hygiene (QC): 6 (6-MET) Transfers (B,C,W/C) (FIM): 6 Toilet/Commode Transfer(FIM): 6 (met 04/07/18) Toilet/Commode Transfer (QC): 6 (6-MET) Tub Transfer(FIM): 6 Shower Transfer(FIM): 6 (met 04/07/18) Additional Goals: 1-Demonstrate ADL Tasks, 2-Verbalize Understanding, 3- ImproveStrength/Reagan 1=Demonstrate adherence to instructed precautions during ADL tasks. 2=Patient will verbalize/demonstrate understanding of assistive devices/modifications for ADL. 3=Patient will improve strength/tolerance for activity to enable patient to perform ADL's. OT Education/Plan Discharge Recommendations Plan/Recommendations: Continue POC Treatment Plan/Plan of Care Patient would benefit from OT for education, treatment and training to promote independence in ADL's, mobility, safety and/or upper extremity function for ADL's. Plan of Care: ADL Retraining, Caregiver Training, Functional Mobility, Group Exercise/Act as Ind, UE Funct Exercise/Act Treatment Duration: Apr 07, 2019 Frequency: At least 5 of 7 days/Wk (IRF) Estimated Hrs Per Day: 1 hour per day (1-1.5 hours per day) Agreement: Yes Rehab Potential: Fair Time/GCodes Start Time: 08:00 Stop Time: 09:00 Total Time Billed (hr/min): 60 Billed Treatment Time 1 visit, ADLx4(60minutes) REMI WILDER OT Apr 07, 2019 12:37
--- NOTE | 2019-04-07 13:40 | NUR ---
DUST OPERATOR met with patient to review any last minute concerns regarding discharge plans home for tomorrow. Patient expresses no concerns and is eager to return home. DUST OPERATOR reviewed IMM and patient choice letter for outpatient physical therapy. Patient provided signature on both documents. DUST OPERATOR faxed referral to [facility] with request of PTPrasanth, per patient's request. No further concerns or questions noted at this time. Please see discharge summary for further information.
--- NOTE | 2019-04-07 15:02 | Therapy Group Daily Note ---
Therapy Daily Group Note Patient Education Topic Foot Wear, Home Safety, Fall Prevention, Home Safety, Exercises Exercises LE Seated Exercise, Balance, UE Exercise Session Ratio (pt:therapist): 4:1 Goal of Session: Home Safety Strategies, UE/LE Strengthing, Other (max) (bernadette hawkins) Goal Met for this Session: Yes Pt Benefit of Group: Contributions to Others, F/U Use of Strategies @Home, Increased Functional Strength, Recognition of Peers, Socialization Other/Notes Each patient participated in group therapy in the common area of rehab. Each patient ambulated or was transported and placed in a [place] to encourage patient interaction and participation. Each patient then had to introduce themselves and answer a question involving critical thinking and recall. Patient's then participated in group discussion and education about home safety and balance and performed UE and LE exercises. Finally, each patient ambulated or was transported back to bed or chair with nurse call, phone, and tray. Start Time: 13:00 Stop Time: 14:10 Total Billed Treatment Time: 70 Total Billed Treatment 1 visit GRP 70LANI CHOW PT Apr 07, 2019 15:02
--- NOTE | 2019-04-07 15:25 | PM&R Progress Note ---
Subjective HPI/CC On Admission Date Seen by Provider: Apr 07, 2019 Time Seen by Provider: 15:00 CC: Debility following left knee replacement HPI: This is an 83yoWF clinic pt of Dr. Patino who is s/p uncomplicated left knee replacement by Dr. Granado, but because she lives alone and due to her age and mild cognitive defect it was felt that she would benefit from 5 days of inpatient rehab in order to be successful at home and decrease fall risk an overall post op complications. She had never had a surgery before in all of her 83 years so she was at risk to have complications just from anesthesia and pain meds so will monitor that closely. She had a BM right before she left [place] but it was very small and she is asking for more laxatives but is urinating without any problems and her Hgb remains stable at 9.0. Her prior level of function ing was the use of assistive devices and she was independent with ADLs. Subjective/Events-last exam Discharge is planned for Wednesday. Up ad-antonio in room now and doing well A little bit impulsive still but pretty much improved. Left lower extremity edema is mild. Bowel regimen at discharge will be the Senna she takes on a regular basis but Lactulose BID prescription was called in. I did send in some Zofran for the nausea she sometimes has with the pain pills. Check meds and labs Conferred with RN Reviewed therapy notes Reassured patient Checked labs this morning Ambulating very well Aspirin for DVT prophylaxis Objective Exam Vital Signs Vital Signs Date Time Temp Pulse Resp B/P (MAP) Pulse Ox O2 Delivery O2 Flow Rate FiO2 04/07/19 09:17 82 150/74 04/07/19 09:00 Room Air 04/07/19 05:59 37.3 16 100 Capillary Refill : General Appearance: No Apparent Distress, WD/WN, Chronically ill HEENT: PERRL/EOMI, Normal ENT Inspection, Pharynx Normal, Moist Mucous Membranes Neck: Full Range of Motion, Normal Inspection, Non Tender, Supple Respiratory: Chest Non Tender, Lungs Clear, Normal Breath Sounds, No Accessory Muscle Use, No Respiratory Distress Cardiovascular: Regular Rate, Rhythm, No Edema, No Gallop, No JVD, No Murmur Gastrointestinal: Normal Bowel Sounds, No Organomegaly, No Pulsatile Mass, Non Tender, Soft Back: Normal Inspection, No CVA Tenderness, No Vertebral Tenderness Extremity: Normal Capillary Refill, Normal Inspection, Normal Range of Motion (except left leg due to knee pain), Non Tender, No Calf Tenderness, No Pedal Edema Neurologic/Psychiatric: Alert, Oriented x3, No Motor/Sensory Deficits, Normal Mood/Affect Skin: Normal Color, Warm/Dry Lymphatic: No Adenopathy Results/Procedures Lab Patient resulted labs reviewed. FIM Transfers Therapy Code Descriptions/Definitions Functional [place] Measure: 0=Not Assessed/NA 4=Minimal Assistance 1=Total Assistance 5=Supervision or Setup 2=Maximal Assistance 6=Modified [place] 3=Moderate Assistance 7=Complete [place] Therapy Quality Codes: 6 Independent with activity with or without an assistive device 5 Patient requires set up or clean up by helper. Patient completes activity by themselves 4 Supervision or touching assist (CGA). [place] provide cues , steadying assist 3 The helper provides less than half the effort to complete the activity 2 The helper provides more than half the effort to complete the activity 1 Dependent. The helper does all the effort to complete an activity 7 Patient refused to complete or attempt activity 9 The patient did not perform the activity before the current illness or injury 88 Not attempted due to Medical conditions or safety concerns Transfers (B, C, W/C) (FIM): 6 Scootin Rollin Roll Left to Right (QC): 6 Supine to/from Sit: 6 Sit to/from Stand: 6 Sit to Lying (QC): 6 Sit to Stand (QC): 6 Chair/Evn-ac-Urpws Xfer(QC): 6 Bed to/from Chair: 6 Car Transfer (QC): 6 Gait Training Does the Patient Walk?: Yes Gait (FIM): 6 Distance (FIM): 3=150 ft (200x2) Distance: >500 ft Walk 10 feet (QC): 6 Walk 50 ft with 2 Turns(QC): 6 Walk 150 ft (QC): 6 Walking 10ft/uneven surface-QC: 6 Gait Level of Assist: 6 Gait Persons Needed: 0 Gait Assistive Device: FWW Wheelchair Training Does the Pt Use a Wheelchair?: No Stair Training Stair Training: Handrails/: 2 handrails Stairs (FIM): 5 #of Steps: 4 1 Step (curb) (QC): 5 4 Steps (QC): 6 Stairs: Pattern: Step to Level of Assist: 5 Mental Status/Objective Comprehension: 7 Expression: 7 Social Interaction: 7 Problem Solvin Memory: 7 ADL-Treatment Feedin (Pt reports feeding self and managing containers without assist.) Eating (QC): 6 Groomin Oral Hygiene (QC): 6 Bathin Bathing Location: L Arm, R Arm, L Upper Leg, R Upper Leg, L Lower Leg (including foot), R Lower Leg (including foot), Chest, Abdomen, Buttocks, Perineal Area Shower/Bathe Self (QC): 6 Upper Extremity Dressin Upper Body Dressing (QC): 6 Lower Extremity Dressin Lower Body Dressing (QC): 6 On/Off Footwear (QC): 6 Toiletin Toileting Hygiene (QC): 6 Toilet/Commode Transfer: 6 Toilet Transfer (QC): 6 Shower: 6 Assessment/Plan Assessment and Plan Assess & Plan/Chief Complaint Assessment: s/p left knee replacement uncomplicated by Dr Granado at [facility] POD # 11 HTN Hypothyroidism Neuropathy Post op anemia Post op constipation now resolved but maintained on meds GERD OA Mild cognition deficit possibly related to anesthesia now resolved Plan: IRF protocol Pain control Monitor hgb BM regimen Monitor BP DC planning for Wednesday when her daughter will come to [facility] [address] to stay 1 week with her (1) Status post left knee replacement Status: Acute (2) Constipation by delayed colonic transit Status: Acute (3) Osteoarthritis Status: Chronic Qualifiers: Osteoarthritis location: unspecified site Osteoarthritis type: unspecified Qualified Codes: M19.90 - Unspecified osteoarthritis, unspecified site (4) Neuropathy Status: Chronic (5) Hypertension Status: Chronic Qualifiers: Hypertension type: essential hypertension Qualified Codes: I10 - Essential (primary) hypertension (6) GERD without esophagitis Status: Chronic (7) Postoperative anemia Status: Acute (8) Cognitive decline Status: Chronic (9) Advanced age Status: Chronic KAVON HURTADO DO Apr 07, 2019 15:25
[2019-04-07 16:11] VITALS: BP 120/72
--- NOTE | 2019-04-07 19:12 | NUR ---
bedside report received from ROMI COLE, assume care of pt
[2019-04-07 21:40] VITALS: BP 143/64
[2019-04-07] MEDS: GABAPENTIN 300 MG (NEURONTIN) CAP PO SCH (21:42)
[2019-04-07] MEDS: amLODIPine 5 MG (NORVASC) TAB PO SCH (21:43)
[2019-04-07] MEDS: MELATONIN 3 MG TABLET PO PRN (21:43)
--- NOTE | 2019-04-07 21:44 | NUR ---
pt refused Enulose, miralax & Senokot did take Colace, c/o pain level 4/10 on numeric scale, Lortab 5 1 tab po given
--- NOTE | 2019-04-07 21:48 | NUR ---
assessments & interventions completed, see assessments & interventions
--- NOTE | 2019-04-07 22:30 | NUR ---
resting quietly in bed, pain level 0/10 on flacc scale
[2019-04-08] MEDS: HYDROcodone/APAP 5 MG/325 MG (LORTAB) TAB PO PRN ×2 (02:02→08:01)
--- NOTE | 2019-04-08 02:02 | NUR ---
c/o pain level 7/10 on numeric Lortab 5 1 tab po given
--- NOTE | 2019-04-08 02:35 | NUR ---
resting quietly in bed, pain level 0/10 on flacc scale
[2019-04-08 06:00] VITALS: BP 108/65
[2019-04-08] MEDS: LEVOTHYROXINE 50 MCG (LEVOTHROID) TAB PO SCH (06:29)
[2019-04-08] MEDS: PANTOPRAZOLE 40 MG (PROTONIX) TAB PO SCH (06:29)
--- NOTE | 2019-04-08 07:05 | NUR ---
bedside report given to LLOYD COLE
[2019-04-08] MEDS: LOSARTAN 100 MG (COZAAR) TABLET PO SCH (09:05)
[2019-04-08] MEDS: LABETALOL 200 MG (NORMODYNE) TAB PO SCH (09:05)
[2019-04-08] MEDS: ASPIRIN E.C. 81 MG (ECOTRIN) TAB PO SCH (09:05)
[2019-04-08] MEDS: DOCUSATE SODIUM 100 MG (COLACE) CAP PO SCH (09:05)
[2019-04-08] MEDS: SENNA W/DOCUSATE (SENOKOT S) TABLET PO SCH (09:05)
[2019-04-08] MEDS: POLYETHYLENE GLYCOL 17 GM (MIRALAX) PACK PO SCH (09:07)
[2019-04-08] MEDS: LACTULOSE SYRUP 10GM/15ML (ENULOSE) 30ML UDC PO SCH (09:07)
--- NOTE | 2019-04-08 11:26 | Discharge Summary ---
Diagnosis/Chief Complaint Date of Admission Mar 31, 2019 at 01:40 Date of Discharge Discharge Date: Apr 08, 2019 Discharge Diagnosis Assessment: s/p left knee replacement uncomplicated by Dr Granado at [facility] POD # 11 HTN Hypothyroidism Neuropathy Post op anemia Post op constipation now resolved but maintained on meds GERD OA Mild cognition deficit possibly related to anesthesia now resolved Plan: IRF protocol Pain control Monitor hgb BM regimen Monitor BP DC planning for Wednesday when her daughter will come to [facility] to stay 1 week with her (1) Status post left knee replacement Status: Acute (2) Constipation by delayed colonic transit Status: Acute (3) Osteoarthritis Status: Chronic Qualifiers: Osteoarthritis location: unspecified site Osteoarthritis type: unspecified Qualified Codes: M19.90 - Unspecified osteoarthritis, unspecified site (4) Neuropathy Status: Chronic (5) Hypertension Status: Chronic Qualifiers: Hypertension type: essential hypertension Qualified Codes: I10 - Essential (primary) hypertension (6) GERD without esophagitis Status: Chronic (7) Postoperative anemia Status: Acute (8) Cognitive decline Status: Chronic (9) Advanced age Status: Chronic Discharge Summary Discharge Physical Examination Allergies: Coded Allergies: No Allergy Information Available (Unverified , 03/30/19) Vitals & I&Os Vital Signs Date Time Temp Pulse Resp B/P (MAP) Pulse Ox O2 Delivery O2 Flow Rate FiO2 04/08/19 13:21 36.6 57 16 158/75 95 Room Air General Appearance: Alert, Oriented X3, Cooperative Respiratory: Clear to Auscultation Cardiovascular: Regular Rate Neuro: Normal Gait, Normal Speech, Strength at 5/5 X4 Ext Psych/Mental Status: Mental Status NL, Mood NL Hospital Course Was the Problem List Reviewed?: Yes Hospital course: Patient had an uneventful standard hospital course for 8 days while in inpatient rehab after recovering from a left knee replacement at [place] by Dr. Granado. Patient remained stable postop hemoglobin remained stable at 9 and was maintained on aspirin for DVT prophylaxis early ambulation and CPM machine. Patient was able to be discharged on a minimal amount of pain medication and will have close follow-up with primary care provider Dr. Patino and was able to participate in all therapies and able to resume near prior level of functioning with a walker home with her daughter who is staying with her for 1 week and initiated home health. Labs (last 24 hrs) Laboratory Tests 04/01/19 06:35: White Blood Count 8.7, Red Blood Count 2.76L, Hemoglobin 9.0L, Hematocrit 27L, Mean Corpuscular Volume 99, Mean Corpuscular Hemoglobin 33, Mean Corpuscular Hemoglobin Concent 33, Red Cell Distribution Width 12.8, Platelet Count 226, Mean Platelet Volume 9.0, Neutrophils (%) (Auto) 56, Lymphocytes (%) (Auto) 30, Monocytes (%) (Auto) 12, Eosinophils (%) (Auto) 2, Basophils (%) (Auto) 1, Neutrophils # (Auto) 4.9, Lymphocytes # (Auto) 2.6, Monocytes # (Auto) 1.0, Eosinophils # (Auto) 0.2, Basophils # (Auto) 0.0, Sodium Level 136, Potassium Level 4.3, Chloride Level 104, Carbon Dioxide Level 26, Anion Gap 6, Blood Urea Nitrogen 21H, Creatinine 1.04, Estimat Glomerular Filtration Rate 50, BUN/Creatinine Ratio 20, Glucose Level 97, Calcium Level 8.5, Corrected Calcium 9.0, Total Bilirubin 0.4, Aspartate Amino Transf (AST/SGOT) 21, Alanine Aminotransferase (ALT/SGPT) 9, Alkaline Phosphatase 55, Total Protein 5.3L, Albumin 3.4 04/03/19 05:25: White Blood Count 7.1, Red Blood Count 2.77L, Hemoglobin 8.9L, Hematocrit 27L, Mean Corpuscular Volume 99, Mean Corpuscular Hemoglobin 32, Mean Corpuscular Hemoglobin Concent 33, Red Cell Distribution Width 12.8, Platelet Count 239, Mean Platelet Volume 9.4, Neutrophils (%) (Auto) 58, Lymphocytes (%) (Auto) 28, Monocytes (%) (Auto) 12, Eosinophils (%) (Auto) 2, Basophils (%) (Auto) 0, Neutrophils # (Auto) 4.1, Lymphocytes # (Auto) 2.0, Monocytes # (Auto) 0.9, Eosinophils # (Auto) 0.2, Basophils # (Auto) 0.0, Sodium Level 137, Potassium Level 4.1, Chloride Level 105, Carbon Dioxide Level 24, Anion Gap 8, Blood Urea Nitrogen 13, Creatinine 0.87, Estimat Glomerular Filtration Rate > 60, BUN/Creatinine Ratio 15, Glucose Level 101, Calcium Level 8.6, Corrected Calcium 9.1, Total Bilirubin 0.5, Aspartate Amino Transf (AST/SGOT) 15, Alanine Aminotransferase (ALT/SGPT) 6, Alkaline Phosphatase 62, Total Protein 5.3L, Albumin 3.4 Pending Labs Laboratory Tests 04/01/19 06:35: White Blood Count 8.7, Red Blood Count 2.76, Hemoglobin 9.0, Hematocrit 27, Mean Corpuscular Volume 99, Mean Corpuscular Hemoglobin 33, Mean Corpuscular Hemoglobin Concent 33, Red Cell Distribution Width 12.8, Platelet Count 226, Mean Platelet Volume 9.0, Neutrophils (%) (Auto) 56, Lymphocytes (%) (Auto) 30, Monocytes (%) (Auto) 12, Eosinophils (%) (Auto) 2, Basophils (%) (Auto) 1, Neutrophils # (Auto) 4.9, Lymphocytes # (Auto) 2.6, Monocytes # (Auto) 1.0, Eosinophils # (Auto) 0.2, Basophils # (Auto) 0.0, Sodium Level 136, Potassium Level 4.3, Chloride Level 104, Carbon Dioxide Level 26, Anion Gap 6, Blood Urea Nitrogen 21, Creatinine 1.04, Estimat Glomerular Filtration Rate 50, BUN/Creatinine Ratio 20, Glucose Level 97, Calcium Level 8.5, Corrected Calcium 9.0, Total Bilirubin 0.4, Aspartate Amino Transf (AST/SGOT) 21, Alanine Aminotransferase (ALT/SGPT) 9, Alkaline Phosphatase 55, Total Protein 5.3, Albumin 3.4 04/03/19 05:25: White Blood Count 7.1, Red Blood Count 2.77, Hemoglobin 8.9, Hematocrit 27, Mean Corpuscular Volume 99, Mean Corpuscular Hemoglobin 32, Mean Corpuscular Hemoglobin Concent 33, Red Cell Distribution Width 12.8, Platelet Count 239, Mean Platelet Volume 9.4, Neutrophils (%) (Auto) 58, Lymphocytes (%) (Auto) 28, Monocytes (%) (Auto) 12, Eosinophils (%) (Auto) 2, Basophils (%) (Auto) 0, Neutrophils # (Auto) 4.1, Lymphocytes # (Auto) 2.0, Monocytes # (Auto) 0.9, Eosinophils # (Auto) 0.2, Basophils # (Auto) 0.0, Sodium Level 137, Potassium Level 4.1, Chloride Level 105, Carbon Dioxide Level 24, Anion Gap 8, Blood Urea Nitrogen 13, Creatinine 0.87, Estimat Glomerular Filtration Rate > 60, BUN/C reatinine Ratio 15, Glucose Level 101, Calcium Level 8.6, Corrected Calcium 9.1, Total Bilirubin 0.5, Aspartate Amino Transf (AST/SGOT) 15, Alanine Aminotransferase (ALT/SGPT) 6, Alkaline Phosphatase 62, Total Protein 5.3, Albumin 3.4 Discharge Home Medications: Active Scripts Active Ondansetron Odt (Ondansetron) 4 Mg Tab.rapdis 4 Mg PO Q4H PRN Lactulose 20 Gm/30 Ml Solution 10 Gm PO BID Hydrocodone/Acetaminophen 5/325mg Tablet (Acetaminophen/Hydrocodone Bitart) 1 Tab Tab 1 Tab PO Q4H PRN Aspirin EC (Aspirin) 81 Mg Tablet.dr 81 Mg PO DAILY Reported Labetalol HCl 100 Mg Tablet 100 Mg PO HS Labetalol HCl 100 Mg Tablet 50 Mg PO DAILY TAKES 1/2 (100MG) TABLET Amlodipine Besylate 5 Mg Tablet 5 Mg PO HS Senna (Sennosides) 8.6 Mg Tablet 8.6 Mg PO HS PRN Gabapentin 300 Mg Capsule 300 Mg PO HS Potassium (Potassium Gluconate) 99 Mg Tablet 99 Mg PO DAILY Levothyroxine Sodium 50 Mcg Tablet 50 Mcg PO DAILY Cozaar (Losartan Potassium) 100 Mg Tablet 100 Mg PO DAILY Instructions to patient/family Please see electronic discharge instructions given to patient. Diagnosis/Problems Diagnosis/Problems (1) Status post left knee replacement Status: Acute (2) Constipation by delayed colonic transit Status: Acute (3) Osteoarthritis Status: Chronic Qualifiers: Qualified Codes: M19.90 - Unspecified osteoarthritis, unspecified site (4) Neuropathy Status: Chronic (5) Hypertension Status: Chronic Qualifiers: Qualified Codes: I10 - Essential (primary) hypertension (6) GERD without esophagitis Status: Chronic (7) Postoperative anemia Status: Acute (8) Cognitive decline Status: Chronic (9) Advanced age Status: Chronic Clinical Quality Measures DVT/VTE Risk/Contraindication: Risk Factor Score Per Nursin RFS Level Per Nursing on Admit: 4+=Very High KAVON HURTADO DO Apr 08, 2019 11:26
[2019-04-08 13:21] VITALS: BP 158/75
--- NOTE | 2019-04-10 09:25 | Therapy Team Discharge Summary ---
Therapy Discharge Summary Discharge Recommendations Date of Discharge Apr 08, 2019 at 11:00 Therapy D/C Recommendations: Physical Therapy Outpatient Physical Therapy This patient was seen on ARU post elective left TKR. Prior to surgery, she lived alone and was indep with all mobility and self care and was active in her community. Upon admission to this unit, she was min assist with transfers and gait and required assist on a step. Treatment focused on functional ROM and strength of the L LE to promote functional transfers, gait and balance. She made excellent progress and achieved all goals. She is mod indep with gait, transfers and stairs at a household level. Pt to discharge home and recommend outpt PT. Occupational Therapy Decreased Activ Tolerance, Impaired I ADL's PT Halfway Goals Quality Process Lead Goals PT Halfway Goals Time Frame: Apr 21, 2019 Transfers (B,C,W/C) (FIM): 6 (met) Roll Left to Right (QC): 6 Sit to Lying (QC): 6 Lying-Sitting on Side/Bed(QC): 6 Sit to Stand (QC): 6 Chair/Zvu-hy-Atlry Xfer(QC): 6 Car Transfer (QC): 6 Gait (FIM): 6 (met) Distance: 500' Walk 10 feet (QC): 6 Walk 10ft-Uneven Surface(QC): 6 Walk 50ft with 2 Turns (QC): 6 Walk 150 ft (QC): 6 Gait Level of Assist: 6 Gait Assistive Device: FWW Stairs (FIM): 2 (exceeded; scored a 5) # of Steps: 4 1 Step (curb) (QC): 4 4 Steps (QC): 4 Stairs Level Of Assist: 5 OT Quality Process Lead Goals Halfway Goals Eating (FIM): 7 (met 04/07/18) Eating (QC): 6 (6-MET) Oral Hygiene (QC): 6 (6-MET) Grooming(FIM): 7 (met 04/07/18) Bathing(FIM): 6 (met 04/07/18) Shower/Bathe Self (QC): 6 (6-MET) Upper Body Dressing(FIM): 7 (not met) Upper Body Dressing (QC): 6 (6-MET) Lower Body Dressing(FIM): 7 (not met) Lower Body Dressing (QC): 6 (6-MET) On/Off Footwear (QC): 7 (6-not met) Toileting(FIM): 6 (met 04/07/18) Toileting Hygiene (QC): 6 (6-MET) Transfers (B,C,W/C) (FIM): 6 Toilet/Commode Transfer(FIM): 6 (met 04/07/18) Toilet/Commode Transfer (QC): 6 (6-MET) Tub Transfer(FIM): 6 Shower Transfer(FIM): 6 (met 04/07/18) Additional Goals: 1-Demonstrate ADL Tasks, 2-Verbalize Understanding, 3- ImproveStrength/Reagan 1=Demonstrate adherence to instructed precautions during ADL tasks. 2=Patient will verbalize/demonstrate understanding of assistive devices/modifications for ADL. 3=Patient will improve strength/tolerance for activity to enable patient to perform ADL's. PREET HENSON PT Apr 10, 2019 09:25
--- NOTE | 2019-04-12 13:56 | Therapy Team Discharge Summary ---
Therapy Discharge Summary Discharge Recommendations Date of Discharge Apr 08, 2019 at 11:00 Therapy D/C Recommendations: Physical Therapy Outpatient Occupational Therapy Pt admitted to ARU following left TKA. On admission to required SBA for grooming, LE dressing, and shower transfers. Skilled OT intervention focused on ADL training, transfers, strengthening, and home safety. Pt made good progress with therapy and by discharge is completing eating and grooming independently and other basic ADLs and transfers with modified independence. Pt did not meet goals of being independent with UE/LE dressing, but met all other LTG. Pt discharged home. D/c ARU OT. Decreased Activ Tolerance, Impaired I ADL's PT Adjunct Instructor Goals Adjunct Instructor Goals PT Adjunct Instructor Goals Time Frame: Apr 21, 2019 Transfers (B,C,W/C) (FIM): 6 (met) Roll Left to Right (QC): 6 Sit to Lying (QC): 6 Lying-Sitting on Side/Bed(QC): 6 Sit to Stand (QC): 6 Chair/Csc-hs-Udgme Xfer(QC): 6 Car Transfer (QC): 6 Gait (FIM): 6 (met) Distance: 500' Walk 10 feet (QC): 6 Walk 10ft-Uneven Surface(QC): 6 Walk 50ft with 2 Turns (QC): 6 Walk 150 ft (QC): 6 Gait Level of Assist: 6 Gait Assistive Device: FWW Stairs (FIM): 2 (exceeded; scored a 5) # of Steps: 4 1 Step (curb) (QC): 4 4 Steps (QC): 4 Stairs Level Of Assist: 5 OT Adjunct Instructor Goals Adjunct Instructor Goals Eating (FIM): 7 (met 04/07/18) Eating (QC): 6 (6-MET) Oral Hygiene (QC): 6 (6-MET) Grooming(FIM): 7 (met 04/07/18) Bathing(FIM): 6 (met 04/07/18) Shower/Bathe Self (QC): 6 (6-MET) Upper Body Dressing(FIM): 7 (not met) Upper Body Dressing (QC): 6 (6-MET) Lower Body Dressing(FIM): 7 (not met) Lower Body Dressing (QC): 6 (6-MET) On/Off Footwear (QC): 7 (6-not met) Toileting(FIM): 6 (met 04/07/18) Toileting Hygiene (QC): 6 (6-MET) Transfers (B,C,W/C) (FIM): 6 Toilet/Commode Transfer(FIM): 6 (met 04/07/18) Toilet/Commode Transfer (QC): 6 (6-MET) Tub Transfer(FIM): 6 Shower Transfer(FIM): 6 (met 04/07/18) Additional Goals: 1-Demonstrate ADL Tasks, 2-Verbalize Understanding, 3- ImproveStrength/Reagan 1=Demonstrate adherence to instructed precautions during ADL tasks. 2=Patient will verbalize/demonstrate understanding of assistive devices/modifications for ADL. 3=Patient will improve strength/tolerance for activity to enable patient to perform ADL's. REMI WILDER OT Apr 12, 2019 13:55
== END 2019-04-08 11:00 | disposition home or self-care (01) | DRG 561 ==
PROVIDERS: ADMIT Internal Medicine; ATTEND Internal Medicine
DX: Z47.1 Aftercare following joint replacement surgery (principal); Z96.652 Presence of left artificial knee joint; I10 Essential (primary) hypertension; E03.9 Hypothyroidism, unspecified; G62.9 Polyneuropathy, unspecified; R54 Age-related physical debility; D64.9 Anemia, unspecified; K59.01 Slow transit constipation; M19.91 Primary osteoarthritis, unspecified site; K21.9 Gastro-esophageal reflux disease without esophagitis; R53.1 Weakness; R41.89 Other symptoms and signs involving cognitive functions and awareness; T41.205A Adverse effect of unspecified general anesthetics, initial encounter; Z60.2 Problems related to living alone
CPT/HCPCS: 36415; 80053; 85025

== ENCOUNTER 2019-08-03 09:36 | Inpatient (IN) | payer MEDICARE ==
[~2019-08-03] VITALS: Ht 167.7 cm; Wt 73.8 kg
[~2019-08-03 09:36] MED LIST: ACHD5005 PO; AMLO5TAB9 PO; ASPI-983 PO; GABA-488 PO; HYDR-3812 PO; LABE100T6 PO; LACT20SO2 PO; LEVO50TA6 PO; LOSA100T3 PO; MELO15TA39 PO; MELO7.5T46 PO; ONDA4TAB11 PO; PANT40TA2 PO; POTA99TA21 PO; SENN-141 PO; TRM50T PO
[2019-08-03] MEDS ORDERED: FLEET ENEMA ADULT 1 EA BTL PR PRN (12:00)
[2019-08-03] MEDS ORDERED: guaiFENesin/CODEINE (ROBITUSSIN AC) 10ML UDC PO PRN (12:00)
[2019-08-03] MEDS ORDERED: LACTULOSE SYRUP 10GM/15ML (ENULOSE) 30ML UDC PO PRN ×2 (12:00)
[2019-08-03] MEDS ORDERED: MELATONIN 3 MG TABLET PO PRN (12:00)
[2019-08-03] MEDS ORDERED: ACETAMINOPHEN 500 MG TAB (TYLENOL) PO PRN (12:00)
[2019-08-03] MEDS ORDERED: ALPRAZolam 0.25 MG (XANAX) TAB PO PRN ×2 (12:00)
[2019-08-03] MEDS ORDERED: CALCIUM CARBONATE 500 MG (TUMS) TAB.CHEW PO PRN ×2 (12:00)
[2019-08-03] MEDS ORDERED: diphenhydrAMINE 25 MG TAB (BENADRYL) PO PRN ×2 (12:00)
[2019-08-03] MEDS ORDERED: LOPERAMIDE 2 MG (IMODIUM) TABLET PO PRN (12:00)
[2019-08-03] MEDS ORDERED: DOCUSATE SODIUM 100 MG (COLACE) CAP PO PRN (12:00)
[2019-08-03] MEDS ORDERED: ONDANSETRON 4 MG (ZOFRAN) ORAL DISSOLVE TAB PO PRN ×2 (12:00)
[2019-08-03] MEDS ORDERED: BISACODYL 10 MG SUPP (DULCOLAX) PR PRN ×2 (12:00)
--- NOTE | 2019-08-03 13:32 | Physical Therapy Evaluation ---
PT Evaluation-General Medical Diagnosis Admission Date 08/03/2019 Medical Diagnosis: DJD right knee Onset Date: Aug 03, 2019 Therapy Diagnosis Therapy Diagnosis: abnormal gait Height/Weight Height (Feet): 5 Height (Inches): 4.00 Weight (Pounds): 151 Weight (Ounces): 8.0 Precautions Precautions/Isolations: Standard Precautions Weight Bear Status Right Lower Extremity: Right Weight Bearing/Tolerated Left Lower Extremity: Left Full Weight Bearing Referral Physician: Bradley Reason for Referral: Evaluation/Treatment Medical History Pertinent Medical History: Arthritis, OA Additional Medical History Left TKR Mar 2019 Current History Post elective right TKR. Reviewed History: Yes Social History Home: Single Level Current Living Status: Alone Entry Into Home: Stairs With Railing PT Steps Into Home: 1 Prior Prior Level of Function SCALE: Activities may be completed with or without assistive devices. 2-Qaiftebuby-iiykmfq completes the activity by him/herself with no assistance from a helper. 5-Set-up or Clean-up Assistance-helper sets up or cleans up; patient completes activity. [place] assists only prior to or following the activity. 4-Supervision or Touching Assistance-helper provides verbal cues and/or touching/steadying and/or contact guard assistance as patient completes activity. Assistance may be provided throughout the activity or intermittently. 3-Partial/Moderate Assistance-helper does LESS THAN HALF the effort. [place] lifts, holds or supports trunk or limbs, but provides less than half the effort. 2-Substantial/Maximal Assistance-helper does MORE THAN HALF the effort. [place] lifts or holds trunk or limbs and provides more than half the effort. 5-Eyfpjlubn-ihkmxa does ALL the effort. Patient does none of the effort to complete the activity. Or, the assistance of 2 or more helpers is required for the patient to complete the activity. If activity was not attempted, code reason: 7-Patient Refused. 9-Not Applicable-not attempted and the patient did not perform the activity before the current illness, exacerbation or injury. 10-Not Attempted due to Environmental Limitations-(lack of equipment, weather restraints, etc.). 88-Not Attempted due to Medical Conditions or Safety Concerns. Bed Mobility: 6 Transfers (B,C,W/C): 6 Gait: 6 Stairs: 6 Indoor Mobility (Ambulation): Independent Stairs: Independent Pt was indep at PLOF and a community ambulator. Pt is active. PT Evaluation-Current Subjective "I had such good care here last time that I wanted to come back." Pain Numeric Pain Scale: 6 Location: Right Location Body Site: Knee Pain Description: Ache Pt/Family Goals Return home alone as before Objective Patient Orientation: Person, Place, Time, Situation Pt is slightly impulsive Tends to move quickly and without pre planning. ROM/Strength ROM Upper Extremities WFL ROM Lower Extremities Left LE strength and ROM WFL Right LE strength is grossly 3/5; ROM is 0-10-80 degrees Strength Lower Extremities Left LE strength WFL Right LE strength 3/5 Integumentary/Posture Integumentary Refer to nursing notes. Bowel Incontinence: No Bladder Incontinence: No Posture normal and symmetrical Neuromuscular (Tone, Coordination, Reflexes) intact and functional Sensory Vision: Wears Glasses Hearing: Functional Hand Dominance: Right Sensation Right Lower Extremit: Intact Sensation Left Lower Extremity: Intact Transfers Roll Left to Right (QC): 4 Sit to Lying (QC): 4 Lying to Sitting/Side of Bed(Q: 4 Sit to Stand (QC): 3 (min assist from low surface. ) Chair/Ccn-uy-Xugio Xfer(QC): 4 Toilet Transfer: 3 (min assist to stand up from standard toilet.) Car Transfer (QC): 3 (min assist to stand up from seat. ) SB-CGA with functional transfers; requires skilled cues for safety and sequencing. Gait Does the Patient Walk?: Yes Mode of Locomotion: Walk Anticipated Mode of Locomotion: Walk Walk 10 feet (QC): 4 Walk 50 ft with 2 Turns(QC): 4 Walk 150 ft (QC): 4 Walking 10ft/uneven surface-QC: 3 (min assist for balance and safety.) Distance: 150 ft Gait Assistive Device: FWW Comments/Gait Description CGA with gait on level surfaces for safety and balance; pt is slightly impulsive and tends to move quickly. Wheelchair Training Does the Pt Use a Wheelchair?: No Stairs 1 Step (curb) (QC): 3 (min assist with skilled cue to sequence ) 4 Steps (QC): 88 12 Steps (QC): 88 Walking Assistive Device: Walker Balance Sitting Static: Normal Sitting Dynamic: Normal Standing Static: Fair Standing Dynamic: Fair Picking up an Object (QC): 88 Treatment Functional transfer and gait training provided. Skill of 2 clinicians indicated due to pt being impulsive with decreased pre planning of tasks. OT addressed sequencing, problem solving and safety as PT addressed gross motor movement and technique. Assessment/Needs Pt is post elective right TKR. She presents with decreased functional ROM and strength which impairs bed mobility, transfers and gait. She will benefit from skilled PT to progress to a mod indep level of mobility and return home. Rehab Potential: Good PT Short Term Goals Short Term Goals Time Frame: Aug 10, 2019 Sit to lyin Lying to sitting on side of be: 5 Sit to stand: 5 Walk 150 feet: 5 PT [facility] Goals [facility] Goals PT Tugboat Pilot Goals Time Frame: Aug 17, 2019 Roll Left & Right (QC): 6 Sit to Lying (QC): 6 Lying-Sitting on Side/Bed(QC): 6 Sit to Stand (QC): 6 Chair/Ywa-ks-Afwnb Xfer(QC): 6 Toilet Transfer (QC): 6 Car Transfer (QC): 6 Does the Patient Walk: Yes (6) Walk 10 feet (QC): 6 Walk 50ft with 2 Turns (QC): 6 Walk 150 ft (QC): 6 Walking 10ft on Uneven Surface: 6 1 Step (curb) (QC): 6 4 Steps (QC): 6 12 Steps (QC): 9 Picking up an Object (QC): 4 Does the Pt use WC or Scooter?: No PT Plan Problem List Problem List: Activity Tolerance, Functional Strength, Safety, Balance, Gait, Transfer, Bed Mobility, ROM Treatment/Plan Treatment Plan: Continue Plan of Care Treatment Plan: Bed Mobility, Education, Functional Activity Reagan, Functional Strength, Group Therapy, Gait, Safety, Therapeutic Exercise, Transfers Treatment Duration: Aug 17, 2019 Frequency: At least 5 of 7 days/Wk (IRF) Estimated Hrs Per Day: 1.5 hours per day Patient and/or Family Agrees t: Yes Safety Risks/Education Patient Education: Transfer Techniques, Reviewed Precautions, Safety Issues Teaching Recipient: Patient Teaching Methods: Discussion Response to Teaching: Reinforcement Needed Time/GCodes Time In: 1350 Time Out: 1400 ([id number]) Total Billed Treatment Time: 30 Total Billed Treatment visit x 2 EVM 10 GT 20 PREET HENSON PT Aug 03, 2019 13:32
--- NOTE | 2019-08-03 13:50 | NUR ---
Heavenlyjulia Longoriateodoro admitted to room 227-1, with an admitting diagnosis of Right Total Knee Replacement, on 08/03/19 from [facility] via Private Vehicle, accompanied by friend. HEAVENLY QUIGLEY introduced to surroundings, call light, bed controls, phone, TV, temperature control, lights, meal times, smoking policy, visitor policy, side rail policy, bathrooms and showers. Patient Rights given to patient in the handbook.HEAVENLY QUIGLEY verbalizes understanding that [facility] is not responsible for the loss or damage to any personal effects or valuables that are kept in the patients possession during their hospitalization. The following Patient Care Plans were discussed with the patient: Discharge Planning, Total Knee Replacement, Impaired mobility, and Potential for Injury. HEAVENLY QUIGLEY verbalizes understanding of Interdisciplinary Patient Education.
[2019-08-03] MEDS ORDERED: ACETAMINOPHEN 325 MG TABLET PO PRN (14:15)
[2019-08-03 14:25] VITALS: BP 184/72
[2019-08-03] MEDS ORDERED: HYDR-3812 PO (14:43)
[2019-08-03] MEDS ORDERED: TRM50T PO (14:43)
[2019-08-03] MEDS ORDERED: MELO15TA39 PO (14:43)
[2019-08-03] MEDS ORDERED: PANT40TA2 PO (14:43)
[2019-08-03] MEDS ORDERED: IRON150C3 PO (14:43)
[2019-08-03] MEDS ORDERED: ASPI-983 PO (14:43)
[2019-08-03] MEDS ORDERED: LOSA100T57 PO (14:43)
--- NOTE | 2019-08-03 14:44 | NUR ---
UPDATED MED REC WITH DISCHARGE INSTRUCTIONS FROM [facility]. THE FOLLOWING CHANGES WERE MADE AT THAT DISCHARGE: NEW: FERREX 150MG BID CHANGE: HYDROCODONE 5-325MG 1-2 Q4H PRN (WAS 1Q4H PRN) TRAMADOL 50MG 1-2 Q6H (UNSURE WHAT PREVIOUS DOSE WAS) PANTOPRAZOLE 40MG BID (FREQUENCY CHANGED FROM ONCE DAILY TO TWICE DAILY) WILL UPDATED THE MED REC BACK TO WHAT THE PATIENT WAS TAKING PRIOR TO THAT DISCHARGE AT A LATER DATE FOR PROPER DISCHARGE TO HOME ORDERS. Addendum: 08/04/19 at 1502 by CAIO FERGUSON [facility] REMOVED THE NEW MEDICATION FERREX THAT WAS ORDERED AT DISCHARGE FROM [place]. I ALSO REMOVED THE PROTONIX, HYDROCODONE, AND TRAMADOL. THESE WERE ALL "CHANGED" AT THE DISCHARGE FROM [place]. HYDROCODONE HAS NOT BEEN FILLED SINCE 04-08-19 #30 FOR 5 DAY SUPPLY. TRAMADOL HAS NOT BEEN FILLED SINCE 11-14-18 #28 FOR A 7 DAY SUPPLY, AND [facility] TO THE PATIENT. THE EXT MED HX SHOWS GABAPENTIN 300MG FILLED #60 FOR A 30 DAYS SUPPLY 03-30-19 - WHEN SHE WAS HERE PREVIOUSLY SHE HAD REPORTED ONLY TAKING 1 AT HS, WHICH IS HOW [facility] REPORTED IT. HOWEVER IT IS STILL PAST DUE. I NOTED THE PAST DUE FILL DATE ON THE MED REC. LABETALOL 100MG WAS FILLED #180 FOR 90 DAYS 07-31-19 - PREVIOUSLY THE PATIENT HAS REPORTED TAKING 1 AT HS AND 1/2 IN THE AM. [facility]
[2019-08-03] MEDS ORDERED: SENNOSIDES 8.6 MG (SENOKOT) TAB PO PRN (15:30)
--- NOTE | 2019-08-03 15:31 | Physical Therapy Daily Note ---
PT Daily Note-Current Subjective Pt working with OT upon arrival. Pt agrees to PT/OT co-treat. Skill of 2 clinicians indicated due to pt being impulsive with decreased pre planning of tasks. Pain Numeric Pain Scale: 6 Location: Right Location Body Site: Knee Pain Description: Ache, Tightness Mental Status Patient Orientation: Person, Place, Time, Situation Attachments: Polar Pack, Other-See Comments (CPM for R LE) Transfers SCALE: Activities may be completed with or without assistive devices. 3-Zpyrjctqnq-sohhxfk completes the activity by him/herself with no assistance from a helper. 5-Set-up or Clean-up Assistance-helper sets up or cleans up; patient completes activity. [place] assists only prior to or following the activity. 4-Supervision or Touching Assistance-helper provides verbal cues and/or touching/steadying and/or contact guard assistance as patient completes activity. Assistance may be provided throughout the activity or intermittently. 3-Partial/Moderate Assistance-helper does LESS THAN HALF the effort. [place] lifts, holds or supports trunk or limbs, but provides less than half the effort. 2-Substantial/Maximal Assistance-helper does MORE THAN HALF the effort. [place] lifts or holds trunk or limbs and provides more than half the effort. 1-Hbseysjzp-sivjns does ALL the effort. Patient does none of the effort to complete the activity. Or, the assistance of 2 or more helpers is required for the patient to complete the activity. If activity was not attempted, code reason: 7-Patient Refused. 9-Not Applicable-not attempted and the patient did not perform the activity before the current illness, exacerbation or injury. 10-Not Attempted due to Environmental Limitations-(lack of equipment, weather restraints, etc.). 88-Not Attempted due to Medical Conditions or Safety Concerns. Sit to Lying (QC): 4 Lying to Sitting/Side of Bed(Q: 4 Sit to Stand (QC): 4 Chair/Cuz-ri-Vrrdh Xfer(QC): 4 Toilet Transfer (QC): 3 Car Transfer (QC): 4 Weight Bearing Right Lower Extremity: Right Weight Bearing/Tolerated Left Lower Extremity: Left Full Weight Bearing Gait Training Does the Patient Walk?: Yes Distance: 150' x2 Walk 10 feet (QC): 4 Walk 50 ft with 2 Turns(QC): 4 Walk 150 ft (QC): 4 Walking 10ft/uneven surface-QC: 4 Gait Persons Needed: 1 Gait Assistive Device: FWW Pt tends to be impulsive, encouraged to slow down luis. Exercises Seated Therapy Exercises: Hip flexion, Kicking activity, Hamstring Curls Seated Reps: 15 NuStep Minutes: 6 NuStep Workload: 1 Treatments Pt works on proper use of FWW, transfers and LE strengthening while OT works on UE strengthening, hand placement as well as sequencing and safety during tasks. Pt. participates in co-treatment with PT/OT due to fatigue and pain. Pt. arrives and is concerned about pain level. Worked together to address balance and safety. OT facilitated ADL skills while PT focused on mobility. Pt. tolerated endurance tasks with UE/LE exercises, approximately 10 minutes at a time with no rest break. HR 70 and 02 sats at 97% after. Pt. does need rest breaks when ambulating with walker. Requires CGA to ambulate. Please see PT note for distance walked. Pt. declines showering or changing her clothing, as she just put them on today. Does agree to shower tomorrow. Pt. verbalizes understanding of therapy goals and treatment, as she has been here before. Pt. able to transfer supine-sit with SBA, and sit-supine with SBA. Pt resting Supine in bed with CPM running at end of Rx. Assessment Current Status: Good Progress Pt is impulsive but Pt redirects when given VC for safety and sequencing. PT Short Term Goals Short Term Goals Time Frame: Aug 10, 2019 Sit to lyin Lying to sitting on side of be: 5 Sit to stand: 5 Walk 150 feet: 5 PT Shelter Goals Oceanologist Goals PT Oceanologist Goals Time Frame: Aug 17, 2019 Roll Left & Right (QC): 6 Sit to Lying (QC): 6 Lying-Sitting on Side/Bed(QC): 6 Sit to Stand (QC): 6 Chair/Joq-zz-Tlchl Xfer(QC): 6 Toilet Transfer (QC): 6 Car Transfer (QC): 6 Does the Patient Walk: Yes Walk 10 feet (QC): 6 Walk 50ft with 2 Turns (QC): 6 Walk 150 ft (QC): 6 Walking 10ft on Uneven Surface: 6 1 Step (curb) (QC): 6 4 Steps (QC): 6 12 Steps (QC): 9 Picking up an Object (QC): 4 Does the Pt use WC or Scooter?: No PT Plan Problem List Problem List: Activity Tolerance, Functional Strength, Safety, Gait Treatment/Plan Treatment Plan: Continue Plan of Care Treatment Plan: Bed Mobility, Education, Functional Activity Reagan, Functional Strength, Group Therapy, Gait, Safety, Therapeutic Exercise, Transfers Treatment Duration: Aug 17, 2019 Frequency: At least 5 of 7 days/Wk (IRF) Estimated Hrs Per Day: 1.5 hours per day Patient and/or Family Agrees t: Yes Safety Risks/Education Patient Education: Gait Training, Transfer Techniques, Correct Positioning, Safety Issues Teaching Recipient: Patient Teaching Methods: Discussion Response to Teaching: Verbalize Understanding Time/GCodes Time In: 1430 Time Out: 1520 Total Billed Treatment Time: 50 Total Billed Treatment 1, GT (20m), EX (15m) & FA (15m) Co-treat w/OT (50m) IAN HOUSTON PTA Aug 03, 2019 15:31
[2019-08-03] MEDS: ENOXAPARIN 40 MG/0.4 ML (LOVENOX) SYR SC SCH (15:34)
[2019-08-03] MEDS: HYDROcodone/APAP 5 MG/325 MG (LORTAB) TAB PO PRN ×2 (15:34→23:22)
--- NOTE | 2019-08-03 15:36 | Occupational Therapy Eval ---
OT Evaluation-General/PLF Medical Diagnosis Admission Date Aug 03, 2019 at 13:50 Medical Diagnosis: Right TKR Onset Date: Aug 03, 2019 Therapy Diagnosis Therapy Diagnosis: Decreased ADL skills Height/Weight Height (Feet): 5 Height (Inches): 4.00 Weight (Pounds): 151 Weight (Ounces): 8.0 Precautions Precautions/Isolations: Standard Precautions Weight Bear Status Weight Bearing Restriction: Weight Bearing/Tolerated Referral Physician: Bradley Referral Reason: Activity Tolerance, Self Care, Evaluation/Treatment, Strengthening/ROM Medical History Pertinent Medical History: Arthritis, HTN, OA Additional Medical History Left TKR Reviewed History: Yes Social History Home: Single Level Current Living Status: Alone Entry Into Home: Stairs With Railing Steps Into Home: 1 ADL-Prior Level of Function SCALE: Activities may be completed with or without assistive devices. 1-Ehtcsvfjgd-laojrwh completes the activity by him/herself with no assistance from a helper. 5-Set-up or Clean-up Assistance-helper sets up or cleans up; patient completes activity. [place] assists only prior to or following the activity. 4-Supervision or Touching Assistance-helper provides verbal cues and/or touching/steadying and/or contact guard assistance as patient completes activity. Assistance may be provided throughout the activity or intermittently. 3-Partial/Moderate Assistance-helper does LESS THAN HALF the effort. [place] lifts, holds or supports trunk or limbs, but provides less than half the effort. 2-Substantial/Maximal Assistance-helper does MORE THAN HALF the effort. [place] lifts or holds trunk or limbs and provides more than half the effort. 0-Ryklgjdge-zztfuw does ALL the effort. Patient does none of the effort to complete the activity. Or, the assistance of 2 or more helpers is required for the patient to complete the activity. If activity was not attempted, code reason: 7-Patient Refused. 9-Not Applicable-not attempted and the patient did not perform the activity before the current illness, exacerbation or injury. 10-Not Attempted due to Environmental Limitations-(lack of equipment, weather restraints, etc.). 88-Not Attempted due to Medical Conditions or Safety Concerns. ADL PLOF Comments Pt. was independent with daily tasks. Had left knee replaced in March, and was on ARU for that. Still has all needed equipment such as shower chair and walker. Pt. has friend that is supportive and helpful, as well as a son that lives nearby. Self Care: Independent Functional Cognition: Independent DME/Equipment: Bath Chair, Tub/Shower DME/Equipment Comments Pt. has walker Drive Self: Yes OT Current Status Subjective Pt. reports 6/10 pain in right knee. Has just arrived and nursing is checking on new pain meds. Appearance Pt. alert and oriented. Agrees to treatment. Mental Status/Objective Patient Orientation: Person, Place, Time, Situation Current Hand Dominance: Right Upper Extremity ROM WFL Upper Extremity Strength WFL ADL-Treatment Eating (QC): 10 Oral Hygiene (QC): 7 Shower/Bathe Self (QC): 7 Upper Body Dressing (QC): 7 Lower Body Dressing (QC): 7 On/Off Footwear (QC): 4 (SBA to doff/don slipper socks. This was somewhat difficult for pt., but she was able to do it.) Toileting Hygiene (QC): 4 (SBA) Toilet transfer (4) Other Treatments Pt. participates in co-treatment with PT/OT due to fatigue and pain. Pt. arrives and is concerned about pain level. Worked together to address balance and safety. OT facilitated ADL skills while PT focused on mobility. Pt. tolerated endurance tasks with UE/LE exercises, approximately 10 minutes at a time with no rest break. HR 70 and 02 sats at 97% after. Pt. does need rest breaks when ambulating with walker. Requires CGA to ambulate. Please see PT note for distance walked. Pt. declines showering or changing her clothing, as she just put them on today. Does agree to shower tomorrow. Pt. verbalizes understanding of therapy goals and treatment, as she has been here before. Pt. able to transfer supine-sit with SBA, and sit-supine with SBA. Education OT Patient Education: Correct positioning, Exercise program, Modified ADL techniques, Progress toward Goal/Update tx plan, Purpose of tx/functional activities, Reviewed precautions, Rehab process, Transfer techniques Teaching Recipient: Patient Teaching Methods: Demonstration, Discussion Response to Teaching: Verbalize Understanding, Return Demonstration OT Computer Training Specialist Goals Computer Training Specialist Goals Time Frame: Aug 17, 2019 Eating (QC): 6 Oral Hygiene (QC): 6 Toileting Hygiene (QC): 6 Shower/Bathe Self (QC): 5 Upper Body Dressing (QC): 6 Lower Body Dressing (QC): 6 On/Off Footwear (QC): 6 Additional Goals: 1-Demonstrate ADL Tasks, 2-Verbalize Understanding, 3- ImproveStrength/Reagan 1=Demonstrate adherence to instructed precautions during ADL tasks. 2=Patient will verbalize/demonstrate understanding of assistive devices/modifications for ADL. 3=Patient will improve strength/tolerance for activity to enable patient to perform ADL's. OT Education/Plan Problem List/Assessment Assessment: Decreased Activ Tolerance, Impaired I ADL's, Impaired Self-Care Skills Discharge Recommendations Plan/Recommendations: Continue POC Therapy Discharge Recommendati: Home & Family Treatment Plan/Plan of Care Treatment,Training & Education: Yes Patient would benefit from OT for education, treatment and training to promote independence in ADL's, mobility, safety and/or upper extremity function for ADL's. Plan of Care: ADL Retraining, Functional Mobility, Group Exercise/Act as Ind, UE Funct Exercise/Act Treatment Duration: Aug 17, 2019 Frequency: At least 5 of 7 days/Wk (IRF) Estimated Hrs Per Day: 1.5 hours per day Agreement: Yes Rehab Potential: Good Time/GCodes Start Time: 13:50 Stop Time: 15:20 Total Time Billed (hr/min): 80 Billed Treatment Time 3557-5314 1, EVM x 10minutes [id number] PT eval, no charge [id number] ADL x 30minutes, Ex x 20minutes, FA x 20minutes Co-treatment completed. Please see above note for designated roles. FELICIA PARK OT Aug 03, 2019 15:36
[2019-08-03 15:39] LABS: BASOPHILS % (AUTO) 0 % (0-10); EOSINOPHILS # (AUTO) 0.2 10^3/uL (0.0-0.3); EOSINOPHILS % (AUTO) 2 % (0-10); HEMATOCRIT 29 % (35-52); HEMOGLOBIN 9.2 G/DL (11.5-16.0); LYMPHOCYTES # (AUTO) 2.3 X 10^3 (1.0-4.0); LYMPHOCYTES % (AUTO) 21 % (12-44); MEAN CORPUSCULAR HEMOGLOBIN 31 PG (25-34); MEAN CORPUSCULAR HGB CONC 32 G/DL (32-36); MEAN CORPUSCULAR VOLUME 96 FL (80-99); MEAN PLATELET VOLUME 8.9 FL (7.4-10.4); MONOCYTES # (AUTO) 1.2 X 10^3 (0.0-1.0); MONOCYTES % (AUTO) 11 % (0-12); NEUTROPHILS # (AUTO) 7.2 X 10^3 (1.8-7.8); NEUTROPHILS % (AUTO) 65 % (42-75); PLATELET COUNT 223 10^3/uL (130-400); RED CELL DISTRIBUTION WIDTH 13.4 % (10.0-14.5); WHITE BLOOD COUNT 11.1 10^3/uL (4.3-11.0)
[2019-08-03 16:06] VITALS: BP 170/62
--- NOTE | 2019-08-03 16:09 | ST Cognitive Linguistic Eval ---
Speech Evaluation-General Medical Diagnosis Right TKR Onset Date: Aug 03, 2019 Therapy Diagnosis Therapy Diagnosis: Cognitive-Communication Referral Referring Physician: Dr. Huerta Medical History Pertinent Medical History: Arthritis, HTN, OA Reviewed History: Yes Social History Current Living Status: Alone Speech PLF-Current Status Prior Level of Function Patient reports having no communication difficulties at this time. Subjective Patient was alert, upbeat, and cooperative during all evaluation tasks. Patient was laying supine on her bed with during all evaluation tasks. Language Eval: Auditory Comprehends Simple Yes/No Ques: Functional Indent/Objects Multiple [place]: Functional Ident/Pics in Multiple Boucher: Functional Follows 1-Step Commands: Functional Follows Complex Directions: Functional Follows General Conversations: Functional Language Eval: Verbal Language Completes Spontaneous Greeting: Functional Produces Auto, Serial Info: Functional Imitates Simple Words/Phrases: Functional Word Finding: Functional Requests Basic Needs: Functional States Basic Personal Info: Functional Expresses Complex Ideas: Functional Objective Cognitive Domain Attention: WNL Memory: WNL Problem Solving: Functional Executive Functions: WNL Visuospatial Skills: WNL Composite Severity Rating: WNL Clock Drawing Severity Rating: WNL Objective Formal/Standardized Tests [facility] Status ([facility]) Results Patient scored a 27/30 on the SLUMS which is indicative of a score within normal limits. Oral Motor/Speech Production Within normal limits. Impression Patient was admitted to the ARU s/p right knee surgery. Patient scored a 27/30 on the SLUMS which indicates she is within normal limits for cognitive- communication functions. Patient does not require/qualify for skilled ST services at this time. Speech Patient Assess Expression of Ideas/Wants: Expression (4) Understanding Verbal Content: Understands (4) Brief Interview-Mental Status: Yes Repetition of Three Words: Three (3) Temporal Orientation: Year: Correct (3) Temporal Orientation: Month: Accurate within 5 days(2) Temporal Orientation: Day: Correct (1) Recall : Wear to say "Sock": Yes, no cue required (2) Recall : Color: Yes, no cue required (2) Recall : Bed: Yes, no cue required (2) Memory/Recall Ability: Current season, That he or she is in a hsp/hsp unit Speech-Plan Patient/Family Goals Patient/Family Goals: Patient plans to return home where she lives alone and return to prior level of independence. Treatment Plan Speech Therapy Treatment Plan: Discontinue ST Frequency: 1 time per week Estimated Hrs Per Day: .25 hour per day Rehab Potential: Good Barriers to Learning: None identified. Pt/Family Agrees to Plan: Yes Safety Risks/Education Teaching Recipient: Patient, Family Teaching Methods: Demonstration, Discussion Response to Teaching: Verbalize Understanding Education Topics Provided: Patient is fully informed of safety of returning home. Time Speech Therapy Time In: 15:20 Speech Therapy Time Out: 15:40 Total Billed Time: 30 Billed Treatment Time 1. SPSNDCOMP PATRICE Calderon Aug 03, 2019 16:09
[2019-08-03 16:10] LABS: ALANINE AMINOTRANSFERASE < 6 U/L (0-55); ALBUMIN 3.9 GM/DL (3.2-4.5); ALKALINE PHOSPHATASE 68 U/L (40-136); BILIRUBIN,TOTAL 0.2 MG/DL (0.1-1.0); BUN/CREATININE RATIO 23; CALCIUM 8.2 MG/DL (8.5-10.1); CARBON DIOXIDE 22 MMOL/L (21-32); CHLORIDE 103 MMOL/L (98-107); CREATININE SERUM 1.03 MG/DL (0.60-1.30); GFR ESTIMATED 51; GLUCOSE 105 MG/DL (70-105); POTASSIUM 4.1 MMOL/L (3.6-5.0); SODIUM 134 MMOL/L (135-145); TOTAL PROTEIN 5.9 GM/DL (6.4-8.2)
--- NOTE | 2019-08-03 18:05 | PM&R Post Admission Assessment ---
PM&R HP Date of Visit: Aug 03, 2019 Time of Visit: 18:15 History of Present Illness CC: Debility following right knee replacement POD # 3 HPI: This is a pt known to me from a few months ago 04/13 when she underwent a left total knee replacement by who presents to inpatient rehab in need of recovery due to her advanced age of 84yo after undergoing an uncomplicated right total knee replacement. She at this current time has no pain and we will aggressively treat her constipation of which she has a chronic issue anyway and will be monitored closely to regain independent living prior level of functioning following the elective knee replacement. Past Kaelqwq-Uovcio-Vnbrpr Hx Past Med/Social Hx: Reviewed Nursing Past Med/Soc Hx, Reviewed and Corrections made Patient Social History Marrital Status: single Employed/Student: retired Alcohol Use: Denies Use Recreational Drug Use: No Smoking Status: Never a Smoker Physical Abuse Screen: No Sexual Abuse: No Recent Foreign Travel: No Contact w/other who traveled: No Recent Hopitalizations: Yes (KNEE SURGERY 04-13) Recent Infectious Disease Expo: No Immunizations Up To Date Pediatric: Yes Date of Pneumonia Vaccine: Jul 26, 2016 Date of Influenza Vaccine: Jun 05, 2019 Seasonal Allergies Seasonal Allergies: No Past Medical History Surgeries: Orthopedic Currently Using CPAP: No Currently Using BIPAP: No Cardiac: Hypertension Neurological: Neuropathy Sexually Transmitted Disease: No HIV/AIDS: No Gastrointestinal: Chronic Constipation Musculoskeletal: Arthritis Endocrine: Hypothyroidsim HEENT: Cataract Loss of Vision: Denies History of Blood Disorders: No Adverse Reaction to Blood Ch[place]han: No Family History Diabetes mellitus 19 MOTHER Hypertension 19 FATHER Prior Level of Function Bed Mobility: 6 Transfers: 6 Gait: 6 Stairs: 6 Indoor Mobility (Ambulation): Independent Stairs: Independent Self Care: Independent Functional Cognition: Independent 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 Drive Self: Yes Current Level of Fuctioning Roll Left to Right: 4 Sit to Lyin Lying to Sitting/Side of Bed: 4 Sit to Stand: 4 Chair/Uzf-sz-Acuta Xfer: 4 Car Transfer: 4 Does the Patient Walk: Yes Mode of Locomotion: Walk Anticipated Mode of Locomotion: Walk Walk 10 feet: 4 Walk 50 ft with 2 Turns: 4 Walk 150 ft: 4 Walking 10ft on uneven surface: 4 Gait Assistive Device: FWW Does the Pt Use a Wheelchair: No 1 Step (curb): 3 4 Steps: 88 Walking Assistive Device: Walker 12 Steps: 88 Picking up an Object: 88 Eatin Oral Hygiene: 7 Shower/Bathe Self: 7 Upper Body Dressin Lower Body Dressin On/Off Footwear: 4 (SBA to doff/don slipper socks. This was somewhat difficult for pt., but she was able to do it.) Toileting Hygiene: 4 (SBA) PM&R Allergy/Meds/Data Review Allergies Coded Allergies: No Allergy Information Available (Unverified , 03/30/19) Home Medications Scheduled Amlodipine Besylate (Amlodipine Besylate), 5 MG PO HS, (Reported) Aspirin (Aspirin EC), 81 MG PO DAILY, (Reported) Gabapentin (Gabapentin), 300 MG PO HS, (Reported) Iron Polysaccharide Complex (Ferrex 150), 150 MG PO BID, (Reported) Labetalol HCl (Labetalol HCl), 50 MG PO DAILY, (Reported) Labetalol HCl (Labetalol HCl), 100 MG PO HS, (Reported) Levothyroxine Sodium (Levothyroxine Sodium), 50 MCG PO DAILY, (Reported) Losartan Potassium (Losartan Potassium), 100 MG PO DAILY, (Reported) Meloxicam (Meloxicam), 7.5 MG PO BID, (Reported) Pantoprazole Sodium (Protonix), 40 MG PO BID, (Reported) Potassium Gluconate (Potassium), 99 MG PO DAILY, (Reported) Scheduled PRN Hydrocodone/Acetaminophen (Hydrocodone-Acetamin 5-325 mg), 1-2 TAB PO Q4H PRN for PAIN-MODERATE (5-7), (Reported) Sennosides (Senna), 8.6 MG PO HS PRN for CONSTIPATION-5TH LINE, (Reported) Tramadol HCl (Tramadol HCl), 50-100 MG PO Q6H PRN for PAIN-MODERATE (5-7), (Reported) Discontinued Medications Hydrocodone Bit/Acetaminophen (Hydrocodone/Acetaminophen 5/325mg Tablet), 1 TAB PO Q4H PRN for PAIN-MODERATE Discontinued Reason: New Order Lactulose (Lactulose), 10 GM PO BID Discontinued Reason: No Longer Taking Ondansetron (Ondansetron Odt), 4 MG PO Q4H PRN for NAUSEA/VOMITING-1ST LINE Discontinued Reason: No Longer Taking Current Medications Current Medications Reviewed Laboratory Data Laboratory Tests 08/03/19 15:30: White Blood Count 11.1H, Red Blood Count 2.96L, Hemoglobin 9.2L, Hematocrit 29L, Mean Corpuscular Volume 96, Mean Corpuscular Hemoglobin 31, Mean Corpuscular Hemoglobin Concent 32, Red Cell Distribution Width 13.4, Platelet Count 223, Mean Platelet Volume 8.9, Neutrophils (%) (Auto) 65, Lymphocytes (%) (Auto) 21, Monocytes (%) (Auto) 11, Eosinophils (%) (Auto) 2, Basophils (%) (Auto) 0, Neutrophils # (Auto) 7.2, Lymphocytes # (Auto) 2.3, Monocytes # (Auto) 1.2H, Eosinophils # (Auto) 0.2, Basophils # (Auto) 0.0, Sodium Level 134L, Potassium Level 4.1, Chloride Level 103, Carbon Dioxide Level 22, Anion Gap 9, Blood Urea Nitrogen 24H, Creatinine 1.03, Estimat Glomerular Filtration Rate 51, BUN/Creatinine Ratio 23, Glucose Level 105, Calcium Level 8.2L, Corrected Calcium 8.3L, Total Bilirubin 0.2, Aspartate Amino Transf (AST/SGOT) 16, Alanine Aminotransferase (ALT/SGPT) < 6, Alkaline Phosphatase 68, Total Protein 5.9L, Albumin 3.9 Review of Systems Constitutional: see HPI, malaise, weakness Gastrointestinal: constipation Musculoskeletal: joint pain All Other Systems Reviewed Negative Unless Noted: Yes Physical Exam Physical Exam Vital Signs Vital Signs - First Documented 08/03/19 14:25 Temp 36.4 Pulse 56 Resp 18 B/P (MAP) 184/72 Pulse Ox 98 O2 Delivery Room Air Capillary Refill : Height, Weight, BMI Height: 5'4.00" Weight: 151lbs. 8.0oz. 68.975052yg; 25.28 BMI Method: General Appearance: No Apparent Distress, WD/WN, Chronically ill, Thin Eyes: Bilateral Eye Normal Inspection, Bilateral Eye PERRL HEENT: PERRL/EOMI, Normal ENT Inspection, Pharynx Normal Neck: Full Range of Motion, Normal Inspection, Non Tender, Supple, Carotid Bruit Respiratory: Chest Non Tender, Lungs Clear, Normal Breath Sounds, No Accessory Muscle Use, No Respiratory Distress Cardiovascular: Regular Rate, Rhythm, No Edema, No Gallop, No JVD, No Murmur, Normal Peripheral Pulses Gastrointestinal: Normal Bowel Sounds, No Organomegaly, No Pulsatile Mass, Non Tender, Soft Back: Normal Inspection, No CVA Tenderness, No Vertebral Tenderness Extremity: Normal Capillary Refill, Normal Inspection, Normal Range of Motion (except right knee postop status), Non Tender, No Calf Tenderness, No Pedal Edema Neurologic/Psychiatric: Alert, Oriented x3, No Motor/Sensory Deficits, Normal 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, 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 Norm as Tested Skin: Normal Color, Warm/Dry Lymphatic: No Adenopathy PM&R Medical Assessment & Plan REHAB/MEDICAL ASSESSMENT AND PLAN: REHAB IMPAIRMENT GROUP: Right knee replacement ETIOLOGIC DIAGNOSIS: Right knee replacement and lives alone The comorbidities that impact the patients function and/or functional outcome by: Advanced age, postop anemia, acute on chronic constipation, fall risk REHAB PLAN: The patient is being admitted to our comprehensive inpatient rehabilitation facility and can tolerate the intensity of service consisting of at least: 180 minutes of therapy a day, 5 out of 7 days a week Rehab treatment will consist of: PT and OT will help regain enough function to return back to living independently The patient/family has a good understanding of our discharge process and will b enefit from an interdisciplinary inpatient rehabilitation program. The patient has potential to make improvement and is in need of at least two of the following multidisciplinary therapies including but not limited to physical, occupational, speech, and prosthetics and orthotics. Additionally the patient will need services from respiratory, nutritional services, wound care, psycho logy, etc. (Customize this to each patient). Given the patients complex condition and risk of further medical complications, rehabilitation services cannot be safely or effectively provided at a lower level of care such as a long-term facility. BARRIERS TO DISCHARGE: Lives alone ESTIMATED LOS: 7 days DISPOSITION: Home with home care RELEVANT CHANGES SINCE PREADMISSION SCREENING: I have compared the patients medical and functional status at the time of the preadmission screening and there are: no changes PROGNOSIS: Good REHABILITATION GOALS: 1. PT and OT will focus on fall risk prevention and increasing independent ADLs All the above goals were reviewed with the patient and he/she is in agreement. By signing this document, I acknowledge that I have personally performed a full physical examination on this patient within 24 hours of admission to this in patient rehabilitation facility and have determined the patient to be able to tolerate the above course of treatment at an intensive level for a reasonable period of time. I will be completing a detailed individualized Plan of Care for this patient by day #4 of the patients stay based upon the Preadmission Screen, the Post-Admission Evaluation, and the therapy evaluations. Admission Dx/Comorbidities: (1) Status post right knee replacement ICD Codes: Z96.651 - Presence of right artificial knee joint (2) Constipation by delayed colonic transit Status: Acute ICD Codes: K59.01 - Slow transit constipation (3) Osteoarthritis Status: Chronic ICD Codes: M19.90 - Unspecified osteoarthritis, unspecified site (4) Neuropathy Status: Chronic ICD Codes: G62.9 - Polyneuropathy, unspecified (5) Hypertension Status: Chronic ICD Codes: I10 - Essential (primary) hypertension (6) GERD without esophagitis Status: Chronic ICD Codes: K21.9 - Gastro-esophageal reflux disease without esophagitis (7) Postoperative anemia Status: Acute ICD Codes: D64.9 - Anemia, unspecified (8) Cognitive decline Status: Chronic ICD Codes: R41.89 - Other symptoms and signs involving cognitive functions and awareness (9) Advanced age Status: Chronic ICD Codes: R54 - Age-related physical debility Assessment/Plan Assessment and Plan Assess & Plan/Chief Complaint Assessment: s/p right knee replacement uncomplicated by Dr Granado at [facility] POD # 3 HTN Hypothyroidism Neuropathy Post op anemia Post op constipation GERD OA Mild cognition deficit? Occurred last admit also Plan: IRF protocol Pain control Monitor hgb BM regimen Monitor BP KAVON HURTADO DO Aug 03, 2019 18:05
[2019-08-03] MEDS: POLYETHYLENE GLYCOL 17 GM (MIRALAX) PACK PO SCH (20:23)
[2019-08-03 20:30] VITALS: BP 127/64
[2019-08-03] MEDS: GABAPENTIN 300 MG (NEURONTIN) CAP PO SCH (20:30)
[2019-08-03] MEDS: LABETALOL 200 MG (NORMODYNE) TAB PO SCH (20:30)
[2019-08-03] MEDS: amLODIPine 5 MG (NORVASC) TAB PO SCH (20:30)
[2019-08-03] MEDS: PANTOPRAZOLE 40 MG (PROTONIX) TAB PO SCH (20:30)
[2019-08-03] MEDS: SENNA W/DOCUSATE (SENOKOT S) TABLET PO SCH (20:30)
[2019-08-03] MEDS ORDERED: SENNA W/DOCUSATE (SENOKOT S) TABLET PO SCH (21:00)
[2019-08-03] MEDS ORDERED: DOCUSATE SODIUM 100 MG (COLACE) CAP PO SCH (21:00)
[2019-08-03] MEDS ORDERED: NON-FORMULARY MEDICATION 1 EA EA (Labetalol HCl 100 MG) PO SCH (21:00)
[2019-08-03] MEDS: MELATONIN 3 MG TABLET PO PRN (23:22)
[2019-08-04] MEDS: HYDROcodone/APAP 5 MG/325 MG (LORTAB) TAB PO PRN ×4 (03:32→23:06)
[2019-08-04 05:28] VITALS: BP 117/69
[2019-08-04] MEDS: LEVOTHYROXINE 50 MCG (LEVOTHROID) TAB PO SCH (05:30)
[2019-08-04] MEDS: LABETALOL 200 MG (NORMODYNE) TAB PO SCH ×2 (08:28→20:27)
[2019-08-04] MEDS: PANTOPRAZOLE 40 MG (PROTONIX) TAB PO SCH ×2 (08:29→20:27)
[2019-08-04] MEDS: POLYETHYLENE GLYCOL 17 GM (MIRALAX) PACK PO SCH ×2 (08:29→20:33)
[2019-08-04] MEDS: SENNA W/DOCUSATE (SENOKOT S) TABLET PO SCH ×2 (08:29→20:27)
[2019-08-04] MEDS: ASPIRIN E.C. 81 MG (ECOTRIN) TAB PO SCH (08:29)
[2019-08-04] MEDS: LOSARTAN 100 MG (COZAAR) TABLET PO SCH (08:29)
[2019-08-04] MEDS ORDERED: LABETALOL HCL PO SCH (09:00)
[2019-08-04] MEDS ORDERED: NON-FORMULARY MEDICATION 1 EA EA (Potassium Gluconate (Potassium) 99 MG) PO SCH (09:00)
--- NOTE | 2019-08-04 09:14 | PM&R Progress Note ---
Subjective HPI/CC On Admission Date Seen by Provider: Aug 04, 2019 Time Seen by Provider: 09:00 Subjective/Events-last exam Pt had a pretty good night. Pain control with Lortab is helpful. No bowel movement yet so will initiate suppository and enema if needed. Overall doing very well with therapy, just had a shower and regaining her independence. Reviewed meds and labs, no concerns. Moved her bed closer to the desk from 227 to 222 last night and that was very helpful and she appreciated that, she felt very isolated. Checked meds and labs. Reviewed therapy noted. Conferred with RN. Review of Systems General: Fatigue Gastrointestinal: Constipation Musculoskeletal: leg pain Neurological: Weakness Objective Exam Vital Signs Vital Signs Date Time Temp Pulse Resp B/P (MAP) Pulse Ox O2 Delivery O2 Flow Rate FiO2 08/05/19 08:12 64 119/65 (83) 08/05/19 05:02 37.2 18 92 Room Air Capillary Refill : Less Than 3 Seconds General Appearance: No Apparent Distress, WD/WN, Chronically ill HEENT: PERRL/EOMI, Normal ENT Inspection, Pharynx Normal Neck: Full Range of Motion, Normal Inspection, Non Tender, Supple Respiratory: Chest Non Tender, Lungs Clear, Normal Breath Sounds, No Accessory Muscle Use, No Respiratory Distress Cardiovascular: Regular Rate, Rhythm, No Edema, No Gallop, No JVD, No Murmur, Normal Peripheral Pulses Gastrointestinal: Normal Bowel Sounds, No Organomegaly, No Pulsatile Mass, Non Tender, Soft Extremity: Normal Capillary Refill, Normal Inspection, Normal Range of Motion (except right leg), Non Tender, No Calf Tenderness Neurologic/Psychiatric: Alert, Oriented x3, No Motor/Sensory Deficits, Normal 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 FIM Transfers Therapy Code Descriptions/Definitions Functional [place] Measure: 0=Not Assessed/NA 4=Minimal Assistance 1=Total Assistance 5=Supervision or Setup 2=Maximal Assistance 6=Modified [place] 3=Moderate Assistance 7=Complete IndependenceSCALE: Activities may be completed with or without assistive devices. 9-Owqnapdqvy-jjxtnbc completes the activity by him/herself with no assistance from a helper. 5-Set-up or Clean-up Assistance-helper sets up or cleans up; patient completes activity. [place] assists only prior to or following the activity. 4-Supervision or Touching Assistance-helper provides verbal cues and/or touching/steadying and/or contact guard assistance as patient completes activity. Assistance may be provided throughout the activity or intermittently. 3-Partial/Moderate Assistance-helper does LESS THAN HALF the effort. [place] lifts, holds or supports trunk or limbs, but provides less than half the effort. 2-Substantial/Maximal Assistance-helper does MORE THAN HALF the effort. [place] lifts or holds trunk or limbs and provides more than half the effort. 4-Ceopwhzin-bwfajz does ALL the effort. Patient does none of the effort to complete the activity. Or, the assistance of 2 or more helpers is required for the patient to complete the activity. If activity was not attempted, code reason: 7-Patient Refused. 9-Not Applicable-not attempted and the patient did not perform the activity before the current illness, exacerbation or injury. 10-Not Attempted due to Environmental Limitations-(lack of equipment, weather restraints, etc.). 88-Not Attempted due to Medical Conditions or Safety Concerns. Roll Left to Right (QC): 4 Sit to Lying (QC): 4 Sit to Stand (QC): 4 Chair/Qdr-ht-Schlv Xfer(QC): 4 Car Transfer (QC): 4 Gait Training Does the Patient Walk?: Yes Distance: 150' x2 Walk 10 feet (QC): 4 Walk 50 ft with 2 Turns(QC): 4 Walk 150 ft (QC): 4 Walking 10ft/uneven surface-QC: 4 Gait Persons Needed: 1 Gait Assistive Device: FWW Wheelchair Training Does the Pt Use a Wheelchair?: No Stair Training 1 Step (curb) (QC): 3 4 Steps (QC): 88 12 Steps (QC): 88 Balance Picking up an Object (QC): 88 ADL-Treatment Eating (QC): 10 Oral Hygiene (QC): 7 Shower/Bathe Self (QC): 7 Upper Body Dressing (QC): 7 Lower Body Dressing (QC): 7 On/Off Footwear (QC): 4 (SBA to doff/don slipper socks. This was somewhat difficult for pt., but she was able to do it.) Toileting Hygiene (QC): 4 (SBA) Assessment/Plan Assessment and Plan Assess & Plan/Chief Complaint Assessment: s/p right knee replacement uncomplicated by Dr Granado at [facility] POD # 4 HTN Hypothyroidism Neuropathy Post op anemia Post op constipation GERD OA Mild cognition deficit? Occurred last admit also Plan: IRF protocol Pain control Monitor hgb BM regimen Monitor BP (1) Status post right knee replacement (2) Constipation by delayed colonic transit Status: Acute (3) Osteoarthritis Status: Chronic (4) Neuropathy Status: Chronic (5) Hypertension Status: Chronic (6) GERD without esophagitis Status: Chronic (7) Postoperative anemia Status: Acute (8) Cognitive decline Status: Chronic (9) Advanced age Status: Chronic KAVON HURTADO DO Aug 04, 2019 09:14
--- NOTE | 2019-08-04 10:06 | Occupational Ther Daily Note ---
OT Current Status-Daily Note Subjective Pt alert, lying in bed. Pt agrees to therapy. No c/o pain at this time. Mental Status/Objective Patient Orientation: Person, Place, Time, Situation ADL-Treatment Pt does require verbal cues for safe sit <--> stand to reach back or push up from chair or bed. Pt chose and transported clothing using FWW with SBA. Pt transferred to toilet with SBA using FWW and grabbars. Pt able to manipulate clothing in standing with SBA using FWW and grabbars then cleanses self sitting on toilet. Pt transferred into shower using FWW, grabbars and shower seat. Pt completed shower using grabbars, hand held shower and shower seat with SBA. Pt then completed upper by self. Pt donned/doffed lower body clothing with SBA while standing to hike pants over hips. Pt able to thread pants over feet and don/doff shoes and socks with SBA. Pt initially stood at sink to complete oral care then sat in chair, SBA. Therapy Code Descriptions/Definitions Functional [place] Measure: 0=Not Assessed/NA 4=Minimal Assistance 1=Total Assistance 5=Supervision or Setup 2=Maximal Assistance 6=Modified [place] 3=Moderate Assistance 7=Complete IndependenceSCALE: Activities may be completed with or without assistive devices. 9-Dricchoola-qpfzwel completes the activity by him/herself with no assistance from a helper. 5-Set-up or Clean-up Assistance-helper sets up or cleans up; patient completes activity. [place] assists only prior to or following the activity. 4-Supervision or Touching Assistance-helper provides verbal cues and/or touching/steadying and/or contact guard assistance as patient completes activity. Assistance may be provided throughout the activity or intermittently. 3-Partial/Moderate Assistance-helper does LESS THAN HALF the effort. [place] lifts, holds or supports trunk or limbs, but provides less than half the effort. 2-Substantial/Maximal Assistance-helper does MORE THAN HALF the effort. [place] lifts or holds trunk or limbs and provides more than half the effort. 7-Babilbisx-bkprxf does ALL the effort. Patient does none of the effort to compl ete the activity. Or, the assistance of 2 or more helpers is required for the patient to complete the activity. If activity was not attempted, code reason: 7-Patient Refused. 9-Not Applicable-not attempted and the patient did not perform the activity before the current illness, exacerbation or injury. 10-Not Attempted due to Environmental Limitations-(lack of equipment, weather restraints, etc.). 88-Not Attempted due to Medical Conditions or Safety Concerns. Eating (QC): 6 (Pt demonstrates ability to complete own meal set up and using regular utensils to eat.) Oral Hygiene (QC): 4 (SBA when standing at sink.) Shower/Bathe Self (QC): 4 Upper Body Dressing (QC): 5 Lower Body Dressing (QC): 4 On/Off Footwear: 4 Toileting Hygiene (QC): 4 Toilet Transfer (QC): 4 Other Treatment Pt ambulated to therapy gym using FWW. Pt completed arm bike for 15 min at 15 sandoval resistance to increase strength and activity tolerance for daily functional tasks. After therapy, pt sitting in recliner with call light/phone in reach. All needs met in room. OT Tow Truck Driver Goals Tow Truck Driver Goals Time Frame: Aug 17, 2019 Eating (QC): 6 Oral Hygiene (QC): 6 Toileting Hygiene (QC): 6 Shower/Bathe Self (QC): 5 Upper Body Dressing (QC): 6 Lower Body Dressing (QC): 6 On/Off Footwear (QC): 6 Additional Goals: 1-Demonstrate ADL Tasks, 2-Verbalize Understanding, 3-ImproveStrength/[place] 1=Demonstrate adherence to instructed precautions during ADL tasks. 2=Patient will verbalize/demonstrate understanding of assistive devices/modifications for ADL. 3=Patient will improve strength/tolerance for activity to enable patient to perform ADL's. OT Education/Plan Problem List/Assessment Assessment: Decreased Activ Tolerance, Decreased Safety Aware, Impaired Self- Care Skills Discharge Recommendations Plan/Recommendations: Continue POC Treatment Plan/Plan of Care Patient would benefit from OT for education, treatment and training to promote independence in ADL's, mobility, safety and/or upper extremity function for ADL's. Plan of Care: ADL Retraining, Functional Mobility, Group Exercise/Act as Ind, UE Funct Exercise/Act Treatment Duration: Aug 17, 2019 Frequency: At least 5 of 7 days/Wk (IRF) Estimated Hrs Per Day: 1.5 hours per day Agreement: Yes Rehab Potential: Good Time/GCodes Start Time: 08:30 Stop Time: 10:00 Total Time Billed (hr/min): 90 Billed Treatment Time 1 visit-ADL 5 (75 min) EX 1 (15 min) PREET MIDDLETON Aug 04, 2019 10:06
--- NOTE | 2019-08-04 10:30 | NUR ---
Pastoral care visit.
--- NOTE | 2019-08-04 11:48 | Physical Therapy Daily Note ---
PT Daily Note-Current Subjective Pt. agrees to Rx but states she is not sleeping well and asks to end the Rx before the scheduled end time and resume in the afternoon secondary to fatigue and discomfort she rates at 6/10 Pain Numeric Pain Scale: 6 Location: Right Location Body Site: Knee Pain Description: Ache Mental Status Patient Orientation: Normal For Age Transfers SCALE: Activities may be completed with or without assistive devices. 3-Hutkirifbm-hmdtxou completes the activity by him/herself with no assistance from a helper. 5-Set-up or Clean-up Assistance-helper sets up or cleans up; patient completes activity. [place] assists only prior to or following the activity. 4-Supervision or Touching Assistance-helper provides verbal cues and/or touching/steadying and/or contact guard assistance as patient completes activity. Assistance may be provided throughout the activity or intermittently. 3-Partial/Moderate Assistance-helper does LESS THAN HALF the effort. [place] lifts, holds or supports trunk or limbs, but provides less than half the effort. 2-Substantial/Maximal Assistance-helper does MORE THAN HALF the effort. [place] lifts or holds trunk or limbs and provides more than half the effort. 2-Nbxcwvtgu-hlbewr does ALL the effort. Patient does none of the effort to complete the activity. Or, the assistance of 2 or more helpers is required for the patient to complete the activity. If activity was not attempted, code reason: 7-Patient Refused. 9-Not Applicable-not attempted and the patient did not perform the activity before the current illness, exacerbation or injury. 10-Not Attempted due to Environmental Limitations-(lack of equipment, weather restraints, etc.). 88-Not Attempted due to Medical Conditions or Safety Concerns. Roll Left & Right (QC): 6 Sit to Lying (QC): 6 Lying to Sitting/Side of Bed(Q: 6 Sit to Stand (QC): 6 Chair/Yrc-pb-Uicbw Xfer(QC): 6 Toilet Transfer (QC): 6 Weight Bearing Right Lower Extremity: Right Weight Bearing/Tolerated Left Lower Extremity: Left Full Weight Bearing Gait Training Does the Patient Walk?: Yes Walk 10 feet (QC): 5 Walk 50 ft with 2 Turns(QC): 5 Walk 150 ft (QC): 5 Gait Persons Needed: 1 Gait Assistive Device: FWW slow, moderate wt bearing on FWW and flexed posture at times, decreased step length right Stair Training Stair Training: Handrails/: 2 handrails #of Steps: 4 4 Steps (QC): 4 Stairs: Pattern: Step to Exercises Supine Ex: Ankle pumps, Quad Set, Rolling, Glut sets, Heel Slides, Short Arc Quads, Scooting, Straight leg raise (assisted right), Hip abd/add Supine Reps: 12 (x2) Seated Therapy Exercises: Ankle pumps, Sit to stand, Long arc quads, Hip flexion Seated Reps: 15 NuStep Minutes: 8 NuStep Workload: 3 Assessment Current Status: Good Progress PT Short Term Goals Short Term Goals Time Frame: Aug 10, 2019 Sit to lyin Lying to sitting on side of be: 5 Sit to stand: 5 Walk 150 feet: 5 PT Snf Goals Snf Goals PT Wellness Manager Goals Time Frame: Aug 17, 2019 Roll Left & Right (QC): 6 Sit to Lying (QC): 6 Lying-Sitting on Side/Bed(QC): 6 Sit to Stand (QC): 6 Chair/Qcv-td-Dbchm Xfer(QC): 6 Toilet Transfer (QC): 6 Car Transfer (QC): 6 Does the Patient Walk: Yes Walk 10 feet (QC): 6 Walk 50ft with 2 Turns (QC): 6 Walk 150 ft (QC): 6 Walking 10ft on Uneven Surface: 6 1 Step (curb) (QC): 6 4 Steps (QC): 6 12 Steps (QC): 9 Picking up an Object (QC): 4 Does the Pt use WC or Scooter?: No PT Plan Treatment/Plan Treatment Plan: Continue Plan of Care Treatment Plan: Bed Mobility, Education, Functional Activity Reagan, Functional Strength, Group Therapy, Gait, Safety, Therapeutic Exercise, Transfers Treatment Duration: Aug 17, 2019 Frequency: At least 5 of 7 days/Wk (IRF) Estimated Hrs Per Day: 1.5 hours per day Patient and/or Family Agrees t: Yes Safety Risks/Education Patient Education: Gait Training, Transfer Techniques, Steps, Correct Positioning, Disease Process, Safety Issues Teaching Recipient: Patient Teaching Methods: Demonstration, Discussion Response to Teaching: Verbalize Understanding, Return Demonstration, Reinforcement Needed Time/GCodes Time In: 1045 Time Out: 1145 Total Billed Treatment Time: 60 Total Billed Treatment 1,GT15m,EX30m,FA15m NATALY MONTOYA PROPELLER LAYOUT WORKER Aug 04, 2019 11:48
--- NOTE | 2019-08-04 12:58 | NUR ---
CM/SS ADMISSION Patient was admitted to ARU 08/03/19 from [facility] with diagnosis post op right TKA. Prior to hospitalization she resided home alone and was IADL with an active lifestyle. She had a left TKA 03/2019 and was on ARU at that time also. DME: FWW, stool riser, grab bars in bathroom, shower seat. Any additional DME needs will be explored with therapy team, patient, family during ARU stay. PCP: Dr. Demetrio Patino, [place]: [phone] ADVANCED DIRECTIVE: Yes, daughter Herlinda Mckeon is her DPOA. INSURANCE: Medicare, [employer] CONTACTS: Prakash Freeman, Son 3 blocks from patient [place], [place] [phone] Herlinda Mckeon, Daughter/DPOA [place], [place] [phone] Herlinda is already at patient's home and intends to stay with her 2 weeks post hospitalization. Reviewed weekly team conference schedule with patient and the goals of discharge planning, patient indicates understanding. Addendum: 08/04/19 at 1313 by KRISTY GARCIA After last knee replacement, patient utilized OP PT through [facility] in [place]. She states they have opened up a facility in [place] which is only 7 miles from her home and that she wants to have her therapy there when discharged from ARU: [phone]
--- NOTE | 2019-08-04 13:20 | NUR ---
"RD ASSESSMENT PMHx: HTN; chronic constipation; hypothyroidism PT INTERACTION: Pt was awake and pleasant during nutrition assessment. Pt states current appetite is good and has been for some time. Pt states following a regular diet at home, and has no issues with chewing/swallowing food. Pt states some recent issues with nausea, but not vomiting. Pt states some recent issues with constipation, and that her last BM was 1/6. Note pt currently on bowel regimen of colace BID; miralax BID; and senna BID, per chart review. Pt states no recent wt changes. Note recent 5# wt gain x3mon, per chart review. ABNORMAL NUTRITION-RELATED LAB VALUES LOW: Na 134; Pro 5.9; Ca 8.2 HIGH: BUN 24 Est. kcal needs: 6411-7031 kcal | 25-30 kcal/kg Est. Pro needs: 71-85 g Pro | 1.0-1.2 g Pro/kg PES STATEMENT: Inadequate oral intake (NI-2.1) related to nausea | constipation as evidenced by pt interview | PO intake 50% x1meal INTERVENTION: Continue with current diet order of Regular diet. Pt may benefit from nutrition supplementation if PO intake declines. Will continue to follow and reassess as pt needs and status change. MONITOR/EVALUATE: PO Intake; Plan of Care; Hydration Status; Weight Status; Lab Values Rhoda Chappell, MS, RD, LD"
--- NOTE | 2019-08-04 13:35 | Physical Therapy Daily Note ---
PT Daily Note-Current Subjective Patient agreeable to therapy and states that she has about 2-3 out of 10 pain level in her knee. Appearance Post treatment patient left in bed with head elevated, bedside table, and call light within reach. CPM on 0-80 degrees. Mental Status Patient Orientation: Normal For Age Transfers SCALE: Activities may be completed with or without assistive devices. 0-Tnuyjjsycm-tltkdzw completes the activity by him/herself with no assistance from a helper. 5-Set-up or Clean-up Assistance-helper sets up or cleans up; patient completes activity. [place] assists only prior to or following the activity. 4-Supervision or Touching Assistance-helper provides verbal cues and/or touching/steadying and/or contact guard assistance as patient completes activity. Assistance may be provided throughout the activity or intermittently. 3-Partial/Moderate Assistance-helper does LESS THAN HALF the effort. [place] lifts, holds or supports trunk or limbs, but provides less than half the effort. 2-Substantial/Maximal Assistance-helper does MORE THAN HALF the effort. [place] lifts or holds trunk or limbs and provides more than half the effort. 1-Cfanlxcuj-cagbya does ALL the effort. Patient does none of the effort to complete the activity. Or, the assistance of 2 or more helpers is required for the patient to complete the activity. If activity was not attempted, code reason: 7-Patient Refused. 9-Not Applicable-not attempted and the patient did not perform the activity before the current illness, exacerbation or injury. 10-Not Attempted due to Environmental Limitations-(lack of equipment, weather restraints, etc.). 88-Not Attempted due to Medical Conditions or Safety Concerns. Roll Left & Right (QC): 5 Sit to Lying (QC): 6 Lying to Sitting/Side of Bed(Q: 4 Sit to Stand (QC): 4 Chair/Bjk-jn-Elddk Xfer(QC): 5 Toilet Transfer (QC): 4 Weight Bearing Right Lower Extremity: Right Weight Bearing/Tolerated Left Lower Extremity: Left Full Weight Bearing Gait Training Does the Patient Walk?: Yes Distance: 150' x 2 Walk 10 feet (QC): 4 Walk 50 ft with 2 Turns(QC): 4 Walk 150 ft (QC): 4 Gait Assistive Device: FWW Patient is stable during ambulation with no loss of balance on this date. Wheelchair Training Does the Pt Use a Wheelchair?: No Exercises NuStep Minutes: 8 Assessment Current Status: Good Progress Patient is ambulating well. Her transfers are improving. Patient needs continued strengthening in her right lower extremity to be able to make bed mobility and transfers easier. PT Short Term Goals Short Term Goals Time Frame: Aug 10, 2019 Sit to lyin Lying to sitting on side of be: 5 Sit to stand: 5 Walk 150 feet: 5 PT Logistics Planning Manager Goals [facility] Goals PT Logistics Planning Manager Goals Time Frame: Aug 17, 2019 Roll Left & Right (QC): 6 Sit to Lying (QC): 6 Lying-Sitting on Side/Bed(QC): 6 Sit to Stand (QC): 6 Chair/Dfw-pe-Jwqtq Xfer(QC): 6 Toilet Transfer (QC): 6 Car Transfer (QC): 6 Does the Patient Walk: Yes Walk 10 feet (QC): 6 Walk 50ft with 2 Turns (QC): 6 Walk 150 ft (QC): 6 Walking 10ft on Uneven Surface: 6 1 Step (curb) (QC): 6 4 Steps (QC): 6 12 Steps (QC): 9 Picking up an Object (QC): 4 Does the Pt use WC or Scooter?: No PT Plan Problem List Problem List: Activity Tolerance, Functional Strength, Safety, Balance, Gait, Transfer, Bed Mobility, ROM Treatment/Plan Treatment Plan: Continue Plan of Care Treatment Plan: Bed Mobility, Education, Functional Activity Reagan, Functional Strength, Group Therapy, Gait, Safety, Therapeutic Exercise, Transfers Treatment Duration: Aug 17, 2019 Frequency: At least 5 of 7 days/Wk (IRF) Estimated Hrs Per Day: 1.5 hours per day Patient and/or Family Agrees t: Yes Safety Risks/Education Patient Education: Gait Training, Transfer Techniques Teaching Recipient: Patient Teaching Methods: Discussion Response to Teaching: Reinforcement Needed Time/GCodes Time In: 1251 Time Out: 1326 Total Billed Treatment Time: 35 Total Billed Treatment 1 visit FA x 2 (35 minutes) KENIA HUDDLESTON PT Aug 04, 2019 13:35
[2019-08-04] MEDS: ENOXAPARIN 40 MG/0.4 ML (LOVENOX) SYR SC SCH (15:06)
[2019-08-04 18:00] VITALS: BP 138/55
[2019-08-04] MEDS: GABAPENTIN 300 MG (NEURONTIN) CAP PO SCH (20:27)
[2019-08-04] MEDS: amLODIPine 5 MG (NORVASC) TAB PO SCH (20:27)
[2019-08-05] MEDS: HYDROcodone/APAP 5 MG/325 MG (LORTAB) TAB PO PRN ×5 (03:08→20:42)
[2019-08-05 05:02] VITALS: BP 105/54
[2019-08-05] MEDS: LEVOTHYROXINE 50 MCG (LEVOTHROID) TAB PO SCH (06:44)
[2019-08-05 08:12] VITALS: BP 119/65
[2019-08-05] MEDS: ASPIRIN E.C. 81 MG (ECOTRIN) TAB PO SCH (08:13)
[2019-08-05] MEDS: LABETALOL 200 MG (NORMODYNE) TAB PO SCH ×2 (08:13→20:42)
[2019-08-05] MEDS: LOSARTAN 100 MG (COZAAR) TABLET PO SCH (08:13)
[2019-08-05] MEDS: SENNA W/DOCUSATE (SENOKOT S) TABLET PO SCH ×2 (08:14→20:42)
[2019-08-05] MEDS: PANTOPRAZOLE 40 MG (PROTONIX) TAB PO SCH ×2 (08:14→20:41)
[2019-08-05] MEDS: POLYETHYLENE GLYCOL 17 GM (MIRALAX) PACK PO SCH ×2 (09:00→20:48)
--- NOTE | 2019-08-05 10:50 | Physical Therapy Daily Note ---
PT Daily Note-Current Subjective Pt. up in chair, initially rated pain 0/10 in the R knee. Pain rated 7-8/10 with exercises. Mental Status Patient Orientation: Person, Place, Time, Situation Transfers SCALE: Activities may be completed with or without assistive devices. 0-Krovtmowmd-lwmiito completes the activity by him/herself with no assistance from a helper. 5-Set-up or Clean-up Assistance-helper sets up or cleans up; patient completes activity. [place] assists only prior to or following the activity. 4-Supervision or Touching Assistance-helper provides verbal cues and/or touching/steadying and/or contact guard assistance as patient completes activit y. Assistance may be provided throughout the activity or intermittently. 3-Partial/Moderate Assistance-helper does LESS THAN HALF the effort. [place] lifts, holds or supports trunk or limbs, but provides less than half the effort. 2-Substantial/Maximal Assistance-helper does MORE THAN HALF the effort. [place] lifts or holds trunk or limbs and provides more than half the effort. 0-Qkbqrydfb-wuvwyx does ALL the effort. Patient does none of the effort to complete the activity. Or, the assistance of 2 or more helpers is required for the patient to complete the activity. If activity was not attempted, code reason: 7-Patient Refused. 9-Not Applicable-not attempted and the patient did not perform the activity before the current illness, exacerbation or injury. 10-Not Attempted due to Environmental Limitations-(lack of equipment, weather restraints, etc.). 88-Not Attempted due to Medical Conditions or Safety Concerns. Sit to Lying (QC): 6 Sit to Stand (QC): 6 Toilet Transfer (QC): 6 Weight Bearing Right Lower Extremity: Right Weight Bearing/Tolerated Left Lower Extremity: Left Full Weight Bearing Gait Training Does the Patient Walk?: Yes Distance: x 50 ft, x 250 ft Walk 150 ft (QC): 6 Gait Assistive Device: FWW pt. steady during gait, good gait speed and step through gait pattern Exercises Supine Ex: Quad Set, Heel Slides, Short Arc Quads, Straight leg raise, Hip abd/add Supine Reps: 15 Seated Therapy Exercises: Long arc quads Seated Reps: 15 Standing: Heel/toe raises, Mini squats (10) Standing Reps: 15 Treatments gait and exercise Assessment Current Status: Good Progress Pt. did very well with gait and TKR exercises. She did need tactile cuing for quad activation and is stiff with knee flexion exercises. Pt. returned to room post session with call light and all needs met. PT Short Term Goals Short Term Goals Time Frame: Aug 10, 2019 Sit to lyin Lying to sitting on side of be: 5 Sit to stand: 5 Walk 150 feet: 5 PT Butt Maker Goals [facility] Goals PT Butt Maker Goals Time Frame: Aug 17, 2019 Roll Left & Right (QC): 6 Sit to Lying (QC): 6 Lying-Sitting on Side/Bed(QC): 6 Sit to Stand (QC): 6 Chair/Zhi-ru-Hrwcl Xfer(QC): 6 Toilet Transfer (QC): 6 Car Transfer (QC): 6 Does the Patient Walk: Yes Walk 10 feet (QC): 6 Walk 50ft with 2 Turns (QC): 6 Walk 150 ft (QC): 6 Walking 10ft on Uneven Surface: 6 1 Step (curb) (QC): 6 4 Steps (QC): 6 12 Steps (QC): 9 Picking up an Object (QC): 4 Does the Pt use WC or Scooter?: No PT Plan Treatment/Plan Treatment Plan: Continue Plan of Care Treatment Plan: Bed Mobility, Education, Functional Activity Reagan, Functional Strength, Group Therapy, Gait, Safety, Therapeutic Exercise, Transfers Treatment Duration: Aug 17, 2019 Frequency: At least 5 of 7 days/Wk (IRF) Estimated Hrs Per Day: 1.5 hours per day Patient and/or Family Agrees t: Yes Time/GCodes Time In: 1030 Time Out: 1100 Total Billed Treatment Time: 30 Total Billed Treatment 1, Ex 20', GT 10' GHADA CARNES PT Aug 05, 2019 10:50
--- NOTE | 2019-08-05 10:55 | PM&R Progress Note ---
Subjective HPI/CC On Admission Date Seen by Provider: Aug 05, 2019 Time Seen by Provider: 13:00 Subjective/Events-last exam Patient had a really good night Pain is well-controlled better than last time Bowels are moving to her satisfaction now Nurse will help her decrease pain medication today No cognitive deficit noted Checked meds and labs Reviewed therapy notes Conferred with field technical assistant of Systems General: Fatigue Musculoskeletal: leg pain Objective Exam Vital Signs Vital Signs Date Time Temp Pulse Resp B/P (MAP) Pulse Ox O2 Delivery O2 Flow Rate FiO2 08/05/19 09:00 Room Air 08/05/19 08:12 64 119/65 (83) 08/05/19 05:02 37.2 18 92 Capillary Refill : Less Than 3 Seconds General Appearance: No Apparent Distress, WD/WN, Chronically ill, Thin HEENT: PERRL/EOMI, Normal ENT Inspection, Pharynx Normal Neck: Full Range of Motion, Normal Inspection, Non Tender, Supple, Carotid Bruit Respiratory: Chest Non Tender, Lungs Clear, Normal Breath Sounds, No Accessory Muscle Use, No Respiratory Distress Cardiovascular: Regular Rate, Rhythm, No Edema, No Gallop, No JVD, No Murmur, Normal Peripheral Pulses Gastrointestinal: Normal Bowel Sounds, No Organomegaly, No Pulsatile Mass, Non Tender, Soft Back: Normal Inspection, No CVA Tenderness, No Vertebral Tenderness Extremity: Normal Capillary Refill, Normal Inspection, Normal Range of Motion (except right knee postop status), Non Tender, No Calf Tenderness, No Pedal Edema Neurologic/Psychiatric: Alert, Oriented x3, No Motor/Sensory Deficits, Normal Mood/Affect, podiatrist II-XII Norm as Tested Skin: Normal Color, Warm/Dry Lymphatic: No Adenopathy Results/Procedures Lab Patient resulted labs reviewed. FIM Transfers Therapy Code Descriptions/Definitions Functional [place] Measure: 0=Not Assessed/NA 4=Minimal Assistance 1=Total Assistance 5=Supervision or Setup 2=Maximal Assistance 6=Modified [place] 3=Moderate Assistance 7=Complete IndependenceSCALE: Activities may be completed with or without assistive devices. 2-Mggfxlkilo-ggsckpa completes the activity by him/herself with no assistance fr om a helper. 5-Set-up or Clean-up Assistance-helper sets up or cleans up; patient completes activity. [place] assists only prior to or following the activity. 4-Supervision or Touching Assistance-helper provides verbal cues and/or touching/steadying and/or contact guard assistance as patient completes activity. Assistance may be provided throughout the activity or intermittently. 3-Partial/Moderate Assistance-helper does LESS THAN HALF the effort. [place] lifts, holds or supports trunk or limbs, but provides less than half the effort. 2-Substantial/Maximal Assistance-helper does MORE THAN HALF the effort. [place] lifts or holds trunk or limbs and provides more than half the effort. 3-Xsuehqkhw-nkmmcq does ALL the effort. Patient does none of the effort to complete the activity. Or, the assistance of 2 or more helpers is required for the patient to complete the activity. If activity was not attempted, code reason: 7-Patient Refused. 9-Not Applicable-not attempted and the patient did not perform the activity before the current illness, exacerbation or injury. 10-Not Attempted due to Environmental Limitations-(lack of equipment, weather restraints, etc.). 88-Not Attempted due to Medical Conditions or Safety Concerns. Roll Left to Right (QC): 5 Sit to Lying (QC): 6 Sit to Stand (QC): 4 Chair/Juh-gl-Uvyds Xfer(QC): 5 Car Transfer (QC): 4 Gait Training Does the Patient Walk?: Yes Distance: 150' x 2 Walk 10 feet (QC): 4 Walk 50 ft with 2 Turns(QC): 4 Walk 150 ft (QC): 4 Walking 10ft/uneven surface-QC: 4 Gait Persons Needed: 1 Gait Assistive Device: FWW Wheelchair Training Does the Pt Use a Wheelchair?: No Stair Training Stair Training: Handrails/: 2 handrails #of Steps: 4 1 Step (curb) (QC): 3 4 Steps (QC): 4 12 Steps (QC): 88 Stairs: Pattern: Step to Balance Picking up an Object (QC): 88 ADL-Treatment Eating (QC): 6 (Pt demonstrates ability to complete own meal set up and using regular utensils to eat.) Oral Hygiene (QC): 4 (SBA when standing at sink.) Shower/Bathe Self (QC): 4 Upper Body Dressing (QC): 5 Lower Body Dressing (QC): 4 On/Off Footwear (QC): 4 Toileting Hygiene (QC): 4 Toilet Transfer (QC): 4 Assessment/Plan Assessment and Plan Assess & Plan/Chief Complaint Assessment: s/p right knee replacement uncomplicated by Dr Granado at [facility] POD # 5 HTN Hypothyroidism Neuropathy Post op anemia Post op constipation now resolved GERD OA Mild cognition deficit? Now resolved Plan: IRF protocol Pain control Monitor hgb BM regimen Monitor BP (1) Status post right knee replacement (2) Constipation by delayed colonic transit Status: Acute (3) Osteoarthritis Status: Chronic (4) Neuropathy Status: Chronic (5) Hypertension Status: Chronic (6) GERD without esophagitis Status: Chronic (7) Postoperative anemia Status: Acute (8) Cognitive decline Status: Chronic (9) Advanced age Status: Chronic KAVON HURTADO DO Aug 05, 2019 10:55
--- NOTE | 2019-08-05 10:56 | Individualized Plan of Care ---
Individualized Plan of Care Rehab Nursing IPOC Order Admission Date Aug 03, 2019 at 13:50 Current Orders Orders Admission Order(Inpt,Obs,Sdc) (08/03/19 11:56) Vital Signs: Per Unit Policy ( 08,16,00 (08/03/19 11:56) Randolph Haddad 09,21 (08/03/19 11:56) Sequential Compression Device Q4H (08/03/19 11:56) Technology Coordinator-Inpt Rehab Con (08/03/19 11:56) Rehab Nursing Orders-Ipoc (08/03/19 11:56) Physical Therapy Rehab Orders (08/03/19 11:56) Occupational Therapy Rehab Ord (08/03/19 11:56) Speech Therapy Rehab Orders (08/03/19 11:56) Cbc With Automated Diff (08/03/19 15:00) Comprehensive Metabolic Panel (08/03/19 15:00) General/Regular (08/03/19 Dinner) Intake & Output 06,14,22 (08/03/19 11:56) Precautions (Aru) (08/03/19 11:56) Weekly Weight WEEK (08/03/19 11:56) Rehab-Intensity Of Therapy (08/03/19 11:56) Initiate Admission Nursing Pro .admission (08/03/19 11:56) Acetaminophen Tablet (Tylenol Tablet) (08/03/19 12:00) Alprazolam Tablet (Xanax Tablet) (08/03/19 12:00) Calcium Carbonate Chew Tablet (Antacid C (08/03/19 12:00) Diphenhydramine Tablet (Benadryl Tablet) (08/03/19 12:00) Docusate Sodium Capsule (Colace Capsule) (08/03/19 21:00) Docusate Sodium Capsule (Colace Capsule) (08/03/19 12:00) Bisacodyl Suppository (Dulcolax Supposit (08/03/19 12:00) Lactulose Oral Solution (Enulose Oral So (08/03/19 12:00) Na Phos/Na Biphos Enema (Fleet Enema Juan Luis (08/03/19 12:00) Guaifenesin/Codeine Syrup (Robitussin Ac (08/03/19 12:00) Loperamide Tablet (Imodium Tablet) (08/03/19 12:00) Enoxaparin Injection (Lovenox Injection) (08/03/19 15:00) Melatonin Tablet (Melatonin Tablet) (08/03/19 12:00) Polyethylene Glycol Powder Pkt (Miralax (08/03/19 21:00) Ondansetron Oral Dissolve Tab (Zofran (08/03/19 12:00) Senna S Tablet (Senokot S Tablet) (08/03/19 21:00) Iron Test (Fe) (08/03/19 11:56) Calcium Carbonate Chew Tablet (Antacid C (08/03/19 12:00) Alprazolam Tablet (Xanax Tablet) (08/03/19 12:00) Diphenhydramine Tablet (Benadryl Tablet) (08/03/19 12:00) Bisacodyl Suppository (Dulcolax Supposit (08/03/19 12:00) Lactulose Oral Solution (Enulose Oral So (08/03/19 12:00) Melatonin Tablet (Melatonin Tablet) (08/03/19 12:00) Ondansetron Oral Dissolve Tab (Zofran (08/03/19 12:00) Senna S Tablet (Senokot S Tablet) (08/03/19 21:00) Initiate Admission Nursing Pro .admission (08/03/19 11:56) Acetaminophen Tablet/Caplet (Tylenol T (08/03/19 14:15) Hydrocodone/Apap 5/325 Tablet (Lortab 5 (08/03/19 15:15) Amlodipine Tablet (Norvasc Tablet) (08/03/19 21:00) Aspirin Enteric Coated Tablet (Ecotrin T (08/04/19 09:00) Gabapentin Capsule/Tablet (Neurontin Cap (08/03/19 21:00) Levothyroxine Tablet (Synthroid Tablet) (08/04/19 06:30) Losartan Tablet (Cozaar Tablet) (08/04/19 09:00) Pantoprazole Tablet (Protonix Tablet) (08/03/19 21:00) Sennosides Tablet (Senokot Tablet) (08/03/19 15:30) Tramadol Tablet (Ultram Tablet) (08/03/19 15:30) (Nf) Labetalol Hcl (08/04/19 09:00) (Nf) Labetalol Hcl (08/03/19 21:00) (Nf) Potassium Gluconate (Potassium) (08/04/19 09:00) Labetalol Tablet (Normodyne Tablet) (08/04/19 09:00) Labetalol Tablet (Normodyne Tablet) (08/03/19 21:00) Patient Visit (08/03/19 ) Speech Sound Lang Comp (08/03/19 ) Patient Visit (08/03/19 ) Pt Eval Moderate Complexity (08/03/19 ) Gait Training, Ea 15 Min (08/03/19 ) Patient Visit (08/03/19 ) Gait Training, Ea 15 Min (08/03/19 ) Exercise Therap, Ea 15 Min (08/03/19 ) Functional Activities, Ea 15 (08/03/19 ) Follow-Up Appointment (08/03/19 16:24) Nursing Communication (Order) (08/03/19 16:24) Transfer - Bed/Room/Location (08/03/19 18:55) Transfer - Bed/Room/Location (08/03/19 18:56) Patient Visit (08/04/19 ) Gait Training, Ea 15 Min (08/04/19 ) Functional Activities, Ea 15 (08/04/19 ) Exercise Therap, Ea 15 Min (08/04/19 ) Patient Visit (08/04/19 ) Functional Activities, Ea 15 (08/04/19 ) Patient Visit (08/05/19 ) Exercise Therap, Ea 15 Min (08/05/19 ) Gait Training, Ea 15 Min (08/05/19 ) Rehab Nursing Orders: Ongoing Assess. of Cognitive Status, Ongoing Assess. of Function Status, Bladder Management, Bladder Scan, Bladder Training, Bowel Management, Bowel Training, Disease Management & Educaiton, DVT Prophylaxis, Fall Prevention, Fluid/Electrolyte/Nutrition Mgmt, Infection Prevention, Medication Management & Education, Management of Risks & Complications, Nutrition Management, Pain Management, Patient/Family Support, Safety Management Intensity of Therapy to be met Patient to be seen: Min.3h per day/5 of 7d PT IPOC Problem List: Activity Tolerance, Functional Strength, Safety, Balance, Gait, Transfer, Bed Mobility, ROM Treatment Plan: Continue Plan of Care Bed Mobility, Education, Functional Activity Reagan, Functional Strength, Group Therapy, Gait, Safety, Therapeutic Exercise, Transfers Treatment Duration: Aug 17, 2019 Frequency: At least 5 of 7 days/Wk (IRF) Estimated Hrs Per Day: 1.5 hours per day OT IPOC Problems: Decreased Activ Tolerance, Decreased Safety Aware, Impaired Self-Care Skills OT Treatment, Training and Edu: Yes Plan of Care: ADL Retraining, Functional Mobility, Group Exercise/Act as Ind, UE Funct Exercise/Act Treatment Duration: Aug 17, 2019 Frequency: At least 5 of 7 days/Wk (IRF) Estimated Hrs Per Day: 1.[address] IPOC Speech Therapy Treatment Plan: Discontinue ST Treatment Duration: Aug 03, 2019 Frequency: 1 time per week Estimated Hrs Per Day: .25 hour per day Technology Coordinator/Case Mgmt Technology Coordinator/Case Managemen: Discharge Planning Dietitian/Environmental Health Sanitarian Dietitian/Environmental Health Sanitarian to monitor nutritional status and make changes and/or recommendations as needed and work with speech pathology on dietary upgrades as the occur. Physician IPOC Medical Issues being managed closely and that require the 24 hour availability of a physician: Patient with recent joint replacement surgery with narcotic bowel and high risk for falls due to advanced age and slight cognitive deficiency Medical Issues: Bowel/Bladder Function, DVT Prophylaxis, Falls Precautions, Fluid/Electrolyte/Nutrition Balance, Infection Protection, Pain Management Brief Synthesis of Preadmission Screen, Post-Admission Evaluation, and Therapy Evaluations: PT and OT will help regain independence in ambulation with walker and manage pain control while strengthening Medical Prognosis: Good Anticipated Length of Stay: 7 days KAVON HURTADO DO Aug 05, 2019 10:56
[2019-08-05] MEDS: ENOXAPARIN 40 MG/0.4 ML (LOVENOX) SYR SC SCH (16:18)
[2019-08-05 17:23] VITALS: BP 134/76
[2019-08-05] MEDS: MELATONIN 3 MG TABLET PO PRN (20:42)
[2019-08-05] MEDS: GABAPENTIN 300 MG (NEURONTIN) CAP PO SCH (20:42)
[2019-08-05] MEDS: amLODIPine 5 MG (NORVASC) TAB PO SCH (20:42)
[2019-08-06] MEDS: HYDROcodone/APAP 5 MG/325 MG (LORTAB) TAB PO PRN ×5 (00:52→21:13)
[2019-08-06] MEDS: LEVOTHYROXINE 50 MCG (LEVOTHROID) TAB PO SCH (05:00)
[2019-08-06 05:14] VITALS: BP 149/71
[2019-08-06] MEDS: PANTOPRAZOLE 40 MG (PROTONIX) TAB PO SCH ×2 (08:13→21:13)
[2019-08-06] MEDS: LABETALOL 200 MG (NORMODYNE) TAB PO SCH ×2 (08:14→21:13)
[2019-08-06] MEDS: ASPIRIN E.C. 81 MG (ECOTRIN) TAB PO SCH (08:15)
[2019-08-06] MEDS: POLYETHYLENE GLYCOL 17 GM (MIRALAX) PACK PO SCH ×2 (08:15→21:01)
[2019-08-06] MEDS: SENNA W/DOCUSATE (SENOKOT S) TABLET PO SCH ×2 (08:15→21:13)
[2019-08-06] MEDS: LOSARTAN 100 MG (COZAAR) TABLET PO SCH (08:15)
--- NOTE | 2019-08-06 12:28 | PM&R Progress Note ---
Subjective HPI/CC On Admission Date Seen by Provider: Aug 06, 2019 Time Seen by Provider: 12:00 Subjective/Events-last exam Patient had a really good night Pain is well-controlled better than last time. She stayed 9 days last visit from left knee replacement Bowels are moving to her satisfaction now Has a visitor today at the chairside Nurse is helping her decrease pain meds today and doing well with that Had a shower today Dressing changed and incision appears good No cognitive deficit noted Checked meds and labs Reviewed therapy notes Conferred with diagnostic technician of Systems General: Fatigue Musculoskeletal: leg pain Objective Exam Vital Signs Vital Signs Date Time Temp Pulse Resp B/P (MAP) Pulse Ox O2 Delivery O2 Flow Rate FiO2 08/06/19 09:00 Room Air 08/06/19 05:14 36.8 71 18 149/71 (97) 91 Capillary Refill : Less Than 3 Seconds General Appearance: No Apparent Distress, WD/WN, Chronically ill, Thin HEENT: PERRL/EOMI, Normal ENT Inspection, Pharynx Normal Neck: Full Range of Motion, Normal Inspection, Non Tender, Supple, Carotid Bruit Respiratory: Chest Non Tender, Lungs Clear, Normal Breath Sounds, No Accessory Muscle Use, No Respiratory Distress Cardiovascular: Regular Rate, Rhythm, No Edema, No Gallop, No JVD, No Murmur, Normal Peripheral Pulses Gastrointestinal: Normal Bowel Sounds, No Organomegaly, No Pulsatile Mass, Non Tender, Soft Back: Normal Inspection, No CVA Tenderness, No Vertebral Tenderness Extremity: Normal Capillary Refill, Normal Inspection, Normal Range of Motion (except right knee postop status), Non Tender, No Calf Tenderness, No Pedal Edema Neurologic/Psychiatric: Alert, Oriented x3, No Motor/Sensory Deficits, Normal Mood/Affect, search and rescue officer II-XII Norm as Tested Skin: Normal Color, Warm/Dry Lymphatic: No Adenopathy Results/Procedures Lab Patient resulted labs reviewed. FIM Transfers Therapy Code Descriptions/Definitions Functional [place] Measure: 0=Not Assessed/NA 4=Minimal Assistance 1=Total Assistance 5=Supervision or Setup 2=Maximal Assistance 6=Modified [place] 3=Moderate Assistance 7=Complete IndependenceSCALE: Activities may be completed with or without assistive devices. 4-Ufijfrpicv-vjdhmog completes the activity by him/herself with no assistance from a helper. 5-Set-up or Clean-up Assistance-helper sets up or cleans up; patient completes activity. [place] assists only prior to or following the activity. 4-Supervision or Touching Assistance-helper provides verbal cues and/or touching/steadying and/or contact guard assistance as patient completes activity. Assistance may be provided throughout the activity or intermittently. 3-Partial/Moderate Assistance-helper does LESS THAN HALF the effort. [place] lifts, holds or supports trunk or limbs, but provides less than half the effort. 2-Substantial/Maximal Assistance-helper does MORE THAN HALF the effort. [place] lifts or holds trunk or limbs and provides more than half the effort. 7-Terbxmbaz-dehwnz does ALL the effort. Patient does none of the effort to complete the activity. Or, the assistance of 2 or more helpers is required for the patient to complete the activity. If activity was not attempted, code reason: 7-Patient Refused. 9-Not Applicable-not attempted and the patient did not perform the activity before the current illness, exacerbation or injury. 10-Not Attempted due to Environmental Limitations-(lack of equipment, weather restraints, etc.). 88-Not Attempted due to Medical Conditions or Safety Concerns. Roll Left to Right (QC): 5 Sit to Lying (QC): 6 Sit to Stand (QC): 6 Chair/Tzl-yi-Qfxlf Xfer(QC): 5 Car Transfer (QC): 4 Gait Training Does the Patient Walk?: Yes Distance: x 50 ft, x 250 ft Walk 10 feet (QC): 4 Walk 50 ft with 2 Turns(QC): 4 Walk 150 ft (QC): 6 Walking 10ft/uneven surface-QC: 4 Gait Persons Needed: 1 Gait Assistive Device: FWW Wheelchair Training Does the Pt Use a Wheelchair?: No Stair Training Stair Training: Handrails/: 2 handrails #of Steps: 4 1 Step (curb) (QC): 3 4 Steps (QC): 4 12 Steps (QC): 88 Stairs: Pattern: Step to Balance Picking up an Object (QC): 88 ADL-Treatment Eating (QC): 6 (Pt demonstrates ability to complete own meal set up and using regular utensils to eat.) Oral Hygiene (QC): 4 (SBA when standing at sink.) Shower/Bathe Self (QC): 4 Upper Body Dressing (QC): 5 Lower Body Dressing (QC): 4 On/Off Footwear (QC): 4 Toileting Hygiene (QC): 4 Toilet Transfer (QC): 4 Assessment/Plan Assessment and Plan Assess & Plan/Chief Complaint Assessment: s/p right knee replacement uncomplicated by Dr Granado at [facility] POD # 6 HTN Hypothyroidism Neuropathy Post op anemia Post op constipation now resolved GERD OA Mild cognition deficit? Now resolved Plan: IRF protocol Pain control Monitor hgb BM regimen Monitor BP Decrease pain meds (1) Status post right knee replacement (2) Constipation by delayed colonic transit Status: Acute (3) Osteoarthritis Status: Chronic (4) Neuropathy Status: Chronic (5) Hypertension Status: Chronic (6) GERD without esophagitis Status: Chronic (7) Postoperative anemia Status: Acute (8) Cognitive decline Status: Chronic (9) Advanced age Status: Chronic KAVON HURTADO DO Aug 06, 2019 12:28
--- NOTE | 2019-08-06 14:41 | NUR ---
Heavenly is a 84 yo female who is currently on ARU after having an elective total right knee. Patient is progressing very well, today she ambulated in the halls roughly 600 feet with nursing staff, she did use a walker with ambulation. Heavenly is A&O X 4 and does have intermittent pain in knee which is control with oral pain medication. She did complete a shower today and was telecommunicator supervisor for all task. Dressing change completed, incision was clean/dry/intact, derma younger present, no redness around incision site, it was covered with an island dressing. Patient has requested to speak with case management tomorrow about discharging home sometime this week. No further concerns noted. Dr. Huerta rounded this afternoon and no issues voiced. This nurse will continue to monitor patient throughout day.
[2019-08-06] MEDS: ENOXAPARIN 40 MG/0.4 ML (LOVENOX) SYR SC SCH (15:46)
[2019-08-06 17:09] VITALS: BP 121/54
[2019-08-06] MEDS: amLODIPine 5 MG (NORVASC) TAB PO SCH (21:12)
[2019-08-06] MEDS: MELATONIN 3 MG TABLET PO PRN (21:13)
[2019-08-06] MEDS: GABAPENTIN 300 MG (NEURONTIN) CAP PO SCH (21:13)
[2019-08-07] MEDS: HYDROcodone/APAP 5 MG/325 MG (LORTAB) TAB PO PRN ×4 (01:24→20:02)
[2019-08-07] MEDS: LEVOTHYROXINE 50 MCG (LEVOTHROID) TAB PO SCH (05:40)
[2019-08-07 05:46] VITALS: BP 128/74
[2019-08-07 06:12] LABS: BASOPHILS % (AUTO) 1 % (0-10); EOSINOPHILS # (AUTO) 0.4 10^3/uL (0.0-0.3); EOSINOPHILS % (AUTO) 6 % (0-10); HEMATOCRIT 27 % (35-52); HEMOGLOBIN 8.7 G/DL (11.5-16.0); LYMPHOCYTES # (AUTO) 1.8 X 10^3 (1.0-4.0); LYMPHOCYTES % (AUTO) 25 % (12-44); MEAN CORPUSCULAR HEMOGLOBIN 31 PG (25-34); MEAN CORPUSCULAR HGB CONC 32 G/DL (32-36); MEAN CORPUSCULAR VOLUME 96 FL (80-99); MEAN PLATELET VOLUME 9.4 FL (7.4-10.4); MONOCYTES % (AUTO) 13 % (0-12); NEUTROPHILS # (AUTO) 4.1 X 10^3 (1.8-7.8); NEUTROPHILS % (AUTO) 56 % (42-75); PLATELET COUNT 234 10^3/uL (130-400); RED CELL DISTRIBUTION WIDTH 13.2 % (10.0-14.5); WHITE BLOOD COUNT 7.3 10^3/uL (4.3-11.0)
[2019-08-07 06:35] LABS: ALBUMIN 3.5 GM/DL (3.2-4.5); BILIRUBIN,TOTAL 0.6 MG/DL (0.1-1.0); CALCIUM 8.7 MG/DL (8.5-10.1); CREATININE SERUM 1.13 MG/DL (0.60-1.30); POTASSIUM 4.4 MMOL/L (3.6-5.0); TOTAL PROTEIN 5.7 GM/DL (6.4-8.2)
--- NOTE | 2019-08-07 07:54 | Physician Query Clarification ---
PQ-Intro New Diagnosis Admission/Discharge Admission Date: Aug 03, 2019 at 13:50 Discharge Date: The medical record reflects the following clinical scenario: History/Risk Factors: s/p Rt TKR Clinical Findings: Arthritis, presence Rt. TKR Treatment: s/p Rt. TKR Question: What condition best reflects the above clinical scenario? Please document a response in the Progress Noter or Discharge Summary. 1. Rt. knee osteoarthritis s/p Rt. TKR 2. s/p Rt. TKR reason for TKR unknown 3. Other, with explanation of the clinical findings. 4. Clinically undetermined, no explanation for the clinical findings. PHYSICIAN RESPONSE What condition reflects above: 1 Please remember a lack of response to the above will prompt a phone page by CDI/Coding staff. In responding to this query, please exercise your independent professional judgment. The purpose of this communication is to more accurately reflect the complexity of your patients condition. The fact that a question is asked does not imply that any particular answer is desired or expected. Thank you for your timely response to this clarification. Requestors name: Marielena THIS PHYSICIAN QUERY FORM IS A PERMANENT PART OF THE MEDICAL RECORD MARIELENA FRAZIER Aug 07, 2019 07:54 KAVON HURTADO DO Aug 07, 2019 08:38
--- NOTE | 2019-08-07 08:44 | Occupational Ther Daily Note ---
OT Current Status-Daily Note Subjective Pt alert, sitting EOB. JONES asked PT about pt being allowed to be up ad antonio in room, PT will check into it since to their knowledge pt has not been cleared for this status. Pt agrees to therapy. Pt c/o pain in R LE, but was not sure if pain meds were given this morning. Nrsg in room at end of session. Pt states that she would like to leave on Wednesday. Mental Status/Objective Patient Orientation: Person, Place, Time, Situation ADL-Treatment Pt declined shower and changing clothing. Pt set own self up to eat breakfast and uses regular utensils to eat. Pt then ambulates to bathroom to complete oral care and grooming standing at sink, mod I. Pt then ambulated to therapy gym. Therapy Code Descriptions/Definitions Functional [place] Measure: 0=Not Assessed/NA 4=Minimal Assistance 1=Total Assistance 5=Supervision or Setup 2=Maximal Assistance 6=Modified [place] 3=Moderate Assistance 7=Complete IndependenceSCALE: Activities may be completed with or without assistive devices. 9-Abwdoedznt-lfnddxx completes the activity by him/herself with no assistance from a helper. 5-Set-up or Clean-up Assistance-helper sets up or cleans up; patient completes activity. [place] assists only prior to or following the activity. 4-Supervision or Touching Assistance-helper provides verbal cues and/or touching/steadying and/or contact guard assistance as patient completes activity. Assistance may be provided throughout the activity or intermittently. 3-Partial/Moderate Assistance-helper does LESS THAN HALF the effort. [place] lifts, holds or supports trunk or limbs, but provides less than half the effort. 2-Substantial/Maximal Assistance-helper does MORE THAN HALF the effort. [place] lifts or holds trunk or limbs and provides more than half the effort. 5-Ubddajyjx-obmzyq does ALL the effort. Patient does none of the effort to complete the activity. Or, the assistance of 2 or more helpers is required for the patient to complete the activity. If activity was not attempted, code reason: 7-Patient Refused. 9-Not Applicable-not attempted and the patient did not perform the activity before the current illness, exacerbation or injury. 10-Not Attempted due to Environmental Limitations-(lack of equipment, weather restraints, etc.). 88-Not Attempted due to Medical Conditions or Safety Concerns. Eating (QC): 6 Oral Hygiene (QC): 6 Other Treatment Pt completed arm bike for 15 min at 20 sandoval resistance to increase UE strength and activity tolerance. R/L wrist strengthening completed 2 sets 10 reps with 2# wt. Pt required verbal/physical cues for technique and counting to complete exercises correctly. Pt then ambulated around therapy gym using FWW to picker and packer items. No LOB noted during task though pt will overextend reach. Pt then ambulated back to room using FWW. After therapy, nrsg in room and pt sitting in room chair. All needs met in room. OT Jute Bag Cutting Machine Operator Goals Longterm Goals Time Frame: Aug 17, 2019 Eating (QC): 6 Oral Hygiene (QC): 6 Toileting Hygiene (QC): 6 Shower/Bathe Self (QC): 5 Upper Body Dressing (QC): 6 Lower Body Dressing (QC): 6 On/Off Footwear (QC): 6 Additional Goals: 1-Demonstrate ADL Tasks, 2-Verbalize Understanding, 3- ImproveStrength/[place] 1=Demonstrate adherence to instructed precautions during ADL tasks. 2=Patient will verbalize/demonstrate understanding of assistive devices/modifications for ADL. 3=Patient will improve strength/tolerance for activity to enable patient to perform ADL's. OT Education/Plan Problem List/Assessment Assessment: Decreased Activ Tolerance, Decreased UE Strength Discharge Recommendations Plan/Recommendations: Continue POC Treatment Plan/Plan of Care Patient would benefit from OT for education, treatment and training to promote independence in ADL's, mobility, safety and/or upper extremity function for ADL's. Plan of Care: ADL Retraining, Functional Mobility, Group Exercise/Act as Ind, UE Funct Exercise/Act Treatment Duration: Aug 17, 2019 Frequency: At least 5 of 7 days/Wk (IRF) Estimated Hrs Per Day: 1.5 hours per day Agreement: Yes Rehab Potential: Good Time/GCodes Start Time: 07:15 Stop Time: 08:45 Total Time Billed (hr/min): 90 Billed Treatment Time 1 visit-ADL 3 (45 min) FA 1 (15 min) EX 2 (30 min) PREET MIDDLETON Aug 07, 2019 08:44
[2019-08-07] MEDS: POLYETHYLENE GLYCOL 17 GM (MIRALAX) PACK PO SCH ×2 (08:45→20:03)
[2019-08-07] MEDS: ASPIRIN E.C. 81 MG (ECOTRIN) TAB PO SCH (08:45)
[2019-08-07] MEDS: LOSARTAN 100 MG (COZAAR) TABLET PO SCH (08:45)
[2019-08-07] MEDS: SENNA W/DOCUSATE (SENOKOT S) TABLET PO SCH ×2 (08:45→20:02)
[2019-08-07] MEDS: LABETALOL 200 MG (NORMODYNE) TAB PO SCH ×2 (08:45→20:02)
[2019-08-07] MEDS: PANTOPRAZOLE 40 MG (PROTONIX) TAB PO SCH ×2 (08:47→20:01)
--- NOTE | 2019-08-07 10:59 | PM&R Progress Note ---
Subjective HPI/CC On Admission Date Seen by Provider: Aug 07, 2019 Time Seen by Provider: 09:45 Subjective/Events-last exam HGB 8.7. Bowels are moving well. Pain is well controlled. Pt overall progressing nicely. Wants to go home on Wednesday. Checked meds and labs Reviewed therapy notes Conferred with engraver of Systems Musculoskeletal: leg pain Objective Exam Vital Signs Vital Signs Date Time Temp Pulse Resp B/P (MAP) Pulse Ox O2 Delivery O2 Flow Rate FiO2 08/08/19 05:10 36.9 70 18 135/71 (92) 96 Room Air Capillary Refill : Less Than 3 Seconds General Appearance: No Apparent Distress, WD/WN, Chronically ill, Thin HEENT: PERRL/EOMI, Normal ENT Inspection, Pharynx Normal Neck: Full Range of Motion, Normal Inspection, Non Tender, Supple, Carotid Bruit Respiratory: Chest Non Tender, Lungs Clear, Normal Breath Sounds, No Accessory Muscle Use, No Respiratory Distress Cardiovascular: Regular Rate, Rhythm, No Edema, No Gallop, No JVD, No Murmur, Normal Peripheral Pulses Gastrointestinal: Normal Bowel Sounds, No Organomegaly, No Pulsatile Mass, Non Tender, Soft Back: Normal Inspection, No CVA Tenderness, No Vertebral Tenderness Extremity: Normal Capillary Refill, Normal Inspection, Normal Range of Motion (except right knee postop status), Non Tender, No Calf Tenderness, No Pedal Edema Neurologic/Psychiatric: Alert, Oriented x3, No Motor/Sensory Deficits, Normal Mood/Affect, set up and charger II-XII Norm as Tested Skin: Normal Color, Warm/Dry Lymphatic: No Adenopathy Results/Procedures Lab Patient resulted labs reviewed. FIM Transfers Therapy Code Descriptions/Definitions Functional [place] Measure: 0=Not Assessed/NA 4=Minimal Assistance 1=Total Assistance 5=Supervision or Setup 2=Maximal Assistance 6=Modified [place] 3=Moderate Assistance 7=Complete IndependenceSCALE: Activities may be completed with or without assistive devices. 6-Vjdxnyfkhx-jgecxsc completes the activity by him/herself with no assistance from a helper. 5-Set-up or Clean-up Assistance-helper sets up or cleans up; patient completes activity. [place] assists only prior to or following the activity. 4-Supervision or Touching Assistance-helper provides verbal cues and/or touching/steadying and/or contact guard assistance as patient completes activity. Assistance may be provided throughout the activity or intermittently. 3-Partial/Moderate Assistance-helper does LESS THAN HALF the effort. [place] lifts, holds or supports trunk or limbs, but provides less than half the effort. 2-Substantial/Maximal Assistance-helper does MORE THAN HALF the effort. [place] lifts or holds trunk or limbs and provides more than half the effort. 0-Yfrycpxzq-hbdpiy does ALL the effort. Patient does none of the effort to complete the activity. Or, the assistance of 2 or more helpers is required for the patient to complete the activity. If activity was not attempted, code reason: 7-Patient Refused. 9-Not Applicable-not attempted and the patient did not perform the activity before the current illness, exacerbation or injury. 10-Not Attempted due to Environmental Limitations-(lack of equipment, weather restraints, etc.). 88-Not Attempted due to Medical Conditions or Safety Concerns. Roll Left to Right (QC): 5 Sit to Lying (QC): 6 Sit to Stand (QC): 6 Chair/Nkh-ka-Cilui Xfer(QC): 5 Car Transfer (QC): 4 Gait Training Does the Patient Walk?: Yes Distance: x 50 ft, x 250 ft Walk 10 feet (QC): 4 Walk 50 ft with 2 Turns(QC): 4 Walk 150 ft (QC): 6 Walking 10ft/uneven surface-QC: 4 Gait Persons Needed: 1 Gait Assistive Device: FWW Wheelchair Training Does the Pt Use a Wheelchair?: No Stair Training Stair Training: Handrails/: 2 handrails #of Steps: 4 1 Step (curb) (QC): 3 4 Steps (QC): 4 12 Steps (QC): 88 Stairs: Pattern: Step to Balance Picking up an Object (QC): 88 ADL-Treatment Eating (QC): 6 Oral Hygiene (QC): 6 Shower/Bathe Self (QC): 4 Upper Body Dressing (QC): 5 Lower Body Dressing (QC): 4 On/Off Footwear (QC): 4 Toileting Hygiene (QC): 4 Toilet Transfer (QC): 4 Assessment/Plan Assessment and Plan Assess & Plan/Chief Complaint Assessment: s/p right knee replacement uncomplicated by Dr Granado at [facility] POD # 7 HTN Hypothyroidism Neuropathy Post op anemia Post op constipation now resolved GERD OA Mild cognition deficit? Now resolved Plan: IRF protocol Pain control Monitor hgb BM regimen Monitor BP Decrease pain meds DC Wed? (1) Status post right knee replacement (2) Constipation by delayed colonic transit Status: Acute (3) Osteoarthritis Status: Chronic (4) Neuropathy Status: Chronic (5) Hypertension Status: Chronic (6) GERD without esophagitis Status: Chronic (7) Postoperative anemia Status: Acute (8) Cognitive decline Status: Chronic (9) Advanced age Status: Chronic KAVON HURTADO DO Aug 07, 2019 10:59
--- NOTE | 2019-08-07 12:05 | Physical Therapy Daily Note ---
PT Daily Note-Current Subjective Pt. agrees to Rx and states she is bored here and feels she is making great progress and wants to go home on Wed Pain Numeric Pain Scale: 4 Location: Right Location Body Site: Knee Pain Description: Ache Mental Status Patient Orientation: Normal For Age Transfers SCALE: Activities may be completed with or without assistive devices. 2-Meudkhclfr-sxrftdy completes the activity by him/herself with no assistance from a helper. 5-Set-up or Clean-up Assistance-helper sets up or cleans up; patient completes activity. [place] assists only prior to or following the activity. 4-Supervision or Touching Assistance-helper provides verbal cues and/or touching/steadying and/or contact guard assistance as patient completes activity. Assistance may be provided throughout the activity or intermittently. 3-Partial/Moderate Assistance-helper does LESS THAN HALF the effort. [place] lifts, holds or supports trunk or limbs, but provides less than half the effort. 2-Substantial/Maximal Assistance-helper does MORE THAN HALF the effort. [place] lifts or holds trunk or limbs and provides more than half the effort. 9-Qirjxutkc-ytsbgk does ALL the effort. Patient does none of the effort to complete the activity. Or, the assistance of 2 or more helpers is required for the patient to complete the activity. If activity was not attempted, code reason: 7-Patient Refused. 9-Not Applicable-not attempted and the patient did not perform the activity before the current illness, exacerbation or injury. 10-Not Attempted due to Environmental Limitations-(lack of equipment, weather restraints, etc.). 88-Not Attempted due to Medical Conditions or Safety Concerns. Roll Left & Right (QC): 6 Sit to Lying (QC): 6 Lying to Sitting/Side of Bed(Q: 6 Sit to Stand (QC): 6 Chair/Kcw-wj-Rfqpc Xfer(QC): 6 Toilet Transfer (QC): 6 Car Transfer (QC): 6 Weight Bearing Right Lower Extremity: Right Weight Bearing/Tolerated Left Lower Extremity: Left Full Weight Bearing Gait Training Does the Patient Walk?: Yes Walk 10 feet (QC): 6 Walk 50 ft with 2 Turns(QC): 6 Walk 150 ft (QC): 6 Walking 10ft/uneven surface-QC: 6 Gait Persons Needed: 0 Gait Assistive Device: FWW some antalgia noted, no fLOB, pt. okd for up ad antonio about room and unit Stair Training Stair Training: Handrails/: 2 handrails #of Steps: 8 1 Step (curb) (QC): 6 4 Steps (QC): 6 12 Steps (QC): 6 Stairs: Pattern: Step to Balance Picking up an Object (QC): 6 Exercises Supine Ex: Ankle pumps, Quad Set, Rolling, Glut sets, Heel Slides, Short Arc Quads, Scooting, Straight leg raise, Hip abd/add Supine Reps: 20 Seated Therapy Exercises: Ankle pumps, Sit to stand, Long arc quads, Hip flexion Seated Reps: 20 NuStep Minutes: 10 NuStep Workload: 3 Treatments pt. utilizes Nustep to "loosen knee" and improve ROM Assessment Current Status: Good Progress up ad antonio with safety observed PT Short Term Goals Short Term Goals Time Frame: Aug 10, 2019 Sit to lyin Lying to sitting on side of be: 5 Sit to stand: 5 Walk 150 feet: 5 PT Senior Living Goals Senior Living Goals PT Senior Business Process Analyst Goals Time Frame: Aug 17, 2019 Roll Left & Right (QC): 6 Sit to Lying (QC): 6 Lying-Sitting on Side/Bed(QC): 6 Sit to Stand (QC): 6 Chair/Agc-hv-Unyoz Xfer(QC): 6 Toilet Transfer (QC): 6 Car Transfer (QC): 6 Does the Patient Walk: Yes Walk 10 feet (QC): 6 Walk 50ft with 2 Turns (QC): 6 Walk 150 ft (QC): 6 Walking 10ft on Uneven Surface: 6 1 Step (curb) (QC): 6 4 Steps (QC): 6 12 Steps (QC): 9 Picking up an Object (QC): 4 Does the Pt use WC or Scooter?: No PT Plan Treatment/Plan Treatment Plan: Continue Plan of Care Treatment Plan: Bed Mobility, Education, Functional Activity Reagan, Functional Strength, Group Therapy, Gait, Safety, Therapeutic Exercise, Transfers Treatment Duration: Aug 17, 2019 Frequency: At least 5 of 7 days/Wk (IRF) Estimated Hrs Per Day: 1.5 hours per day Patient and/or Family Agrees t: Yes Safety Risks/Education Patient Education: Gait Training, Transfer Techniques, Steps, Disease Process, Safety Issues Teaching Recipient: Patient Teaching Methods: Demonstration, Discussion Response to Teaching: Verbalize Understanding, Return Demonstration Time/GCodes Time In: 1100 Time Out: 1200 Total Billed Treatment Time: 60 Total Billed Treatment 1,GT20m,EX30m,FA25m NATALY OMNTOYA EYE DROPPER ASSEMBLER Aug 07, 2019 12:05
--- NOTE | 2019-08-07 13:40 | Physical Therapy Daily Note ---
PT Daily Note-Current Subjective Pt. states she is bored. " I might as well go to bed, put the CPM on and watch some TV" Pain Location: No Pain Reported Mental Status Patient Orientation: Normal For Age Transfers SCALE: Activities may be completed with or without assistive devices. 7-Pqhkmlqngn-xuvnnsn completes the activity by him/herself with no assistance fr om a helper. 5-Set-up or Clean-up Assistance-helper sets up or cleans up; patient completes activity. [place] assists only prior to or following the activity. 4-Supervision or Touching Assistance-helper provides verbal cues and/or touching/steadying and/or contact guard assistance as patient completes activity. Assistance may be provided throughout the activity or intermittently. 3-Partial/Moderate Assistance-helper does LESS THAN HALF the effort. [place] lifts, holds or supports trunk or limbs, but provides less than half the effort. 2-Substantial/Maximal Assistance-helper does MORE THAN HALF the effort. [place] lifts or holds trunk or limbs and provides more than half the effort. 4-Lzelkeofb-redmkm does ALL the effort. Patient does none of the effort to complete the activity. Or, the assistance of 2 or more helpers is required for the patient to complete the activity. If activity was not attempted, code reason: 7-Patient Refused. 9-Not Applicable-not attempted and the patient did not perform the activity before the current illness, exacerbation or injury. 10-Not Attempted due to Environmental Limitations-(lack of equipment, weather restraints, etc.). 88-Not Attempted due to Medical Conditions or Safety Concerns. all TRFs Mod I Weight Bearing Right Lower Extremity: Right Weight Bearing/Tolerated Left Lower Extremity: Left Full Weight Bearing Gait Training Gait Assistive Device: FWW 250ft,200ft mod I as observed, side step left and right as well as retro all with no incident or LOB Exercises Seated Therapy Exercises: Ankle pumps, Sit to stand, Long arc quads, Hip flexion Seated Reps: 10 Treatments in bed, on CPM at 0-80degrees with call mcginnis and warmed blanket after Rx Assessment Current Status: Good Progress PT Short Term Goals Short Term Goals Time Frame: Aug 10, 2019 Sit to lyin Lying to sitting on side of be: 5 Sit to stand: 5 Walk 150 feet: 5 PT Senior Care Goals Mint Machine Operator Goals PT Mint Machine Operator Goals Time Frame: Aug 17, 2019 Roll Left & Right (QC): 6 Sit to Lying (QC): 6 Lying-Sitting on Side/Bed(QC): 6 Sit to Stand (QC): 6 Chair/Tae-od-Ukevf Xfer(QC): 6 Toilet Transfer (QC): 6 Car Transfer (QC): 6 Does the Patient Walk: Yes Walk 10 feet (QC): 6 Walk 50ft with 2 Turns (QC): 6 Walk 150 ft (QC): 6 Walking 10ft on Uneven Surface: 6 1 Step (curb) (QC): 6 4 Steps (QC): 6 12 Steps (QC): 9 Picking up an Object (QC): 4 Does the Pt use WC or Scooter?: No PT Plan Treatment/Plan Treatment Plan: Continue Plan of Care Treatment Plan: Bed Mobility, Education, Functional Activity Reagan, Functional Strength, Group Therapy, Gait, Safety, Therapeutic Exercise, Transfers Treatment Duration: Aug 17, 2019 Frequency: At least 5 of 7 days/Wk (IRF) Estimated Hrs Per Day: 1.5 hours per day Patient and/or Family Agrees t: Yes Safety Risks/Education Patient Education: Gait Training, Transfer Techniques Time/GCodes Time In: 1300 Time Out: 1330 Total Billed Treatment Time: 30 Total Billed Treatment 1,ZHUM15v,FA15m NATALY MONTOYA CHEMISTRY TECHNICIAN Aug 07, 2019 13:40
[2019-08-07] MEDS: ENOXAPARIN 40 MG/0.4 ML (LOVENOX) SYR SC SCH (16:25)
[2019-08-07 18:19] VITALS: BP 144/74
[2019-08-07] MEDS: MELATONIN 3 MG TABLET PO PRN (20:01)
[2019-08-07] MEDS: GABAPENTIN 300 MG (NEURONTIN) CAP PO SCH (20:02)
[2019-08-07] MEDS: amLODIPine 5 MG (NORVASC) TAB PO SCH (20:02)
[2019-08-08] MEDS: LEVOTHYROXINE 50 MCG (LEVOTHROID) TAB PO SCH (05:04)
[2019-08-08] MEDS: HYDROcodone/APAP 5 MG/325 MG (LORTAB) TAB PO PRN ×3 (05:04→20:28)
[2019-08-08 05:10] VITALS: BP 135/71
[2019-08-08 08:00] VITALS: BP 148/72
--- NOTE | 2019-08-08 08:00 | NUR ---
PLEASANT AND COOPERATIVE. RIGHT KNEE INCISION LOOKS GOOD. PATIENT STATES PAIN IS ADEQUATELY CONTROLLED. STATES DID EXPEL A SMALL BM THIS AM "BUT NOT A GOOD ONE FOR 4 DAYS". REFUSED DULCOLAX SUPPOSITORY, BUT MIRALAX AND STOOL SOFTENERS GIVEN. REQUESTING CPM AT HOME AND FURNITURE ASSEMBLER AND INSTALLER WILL FOLLOW UP.
--- NOTE | 2019-08-08 08:02 | Occupational Ther Daily Note ---
OT Current Status-Daily Note Subjective Pt alert, ambulating around room. Pt was cleared for up ad antonio in room 08/07/2019. Pt c/o pain, nrsg in room. Pt agrees to therapy. Mental Status/Objective Patient Orientation: Person, Place, Time, Situation ADL-Treatment Therapy Code Descriptions/Definitions Functional Glenn Measure: 0=Not Assessed/NA 4=Minimal Assistance 1=Total Assistance 5=Supervision or Setup 2=Maximal Assistance 6=Modified Glenn 3=Moderate Assistance 7=Complete IndependenceSCALE: Activities may be completed with or without assistive devices. 4-Oniluzeagu-luwzmcp completes the activity by him/herself with no assistance from a helper. 5-Set-up or Clean-up Assistance-helper sets up or cleans up; patient completes activity. [place] assists only prior to or following the activity. 4-Supervision or Touching Assistance-helper provides verbal cues and/or touching/steadying and/or contact guard assistance as patient completes activity. Assistance may be provided throughout the activity or intermittently. 3-Partial/Moderate Assistance-helper does LESS THAN HALF the effort. [place] lifts, holds or supports trunk or limbs, but provides less than half the effort. 2-Substantial/Maximal Assistance-helper does MORE THAN HALF the effort. [place] lifts or holds trunk or limbs and provides more than half the effort. 7-Ftrxlgsaa-tjuiiz does ALL the effort. Patient does none of the effort to complete the activity. Or, the assistance of 2 or more helpers is required for the patient to complete the activity. If activity was not attempted, code reason: 7-Patient Refused. 9-Not Applicable-not attempted and the patient did not perform the activity before the current illness, exacerbation or injury. 10-Not Attempted due to Environmental Limitations-(lack of equipment, weather restraints, etc.). 88-Not Attempted due to Medical Conditions or Safety Concerns. Eating (QC): 6 (Pt completes own meal set up and uses regular utensils.) Oral Hygiene (QC): 6 (Standing at sink, completes oral hygiene.) Shower/Bathe Self (QC): 6 (Pt able to complete all areas using grabbars, hand held shower, long handle brush and shower seat.) Upper Body Dressing (QC): 6 (Pt retrieves own clothing with FWW and dresses self.) Lower Body Dressing (QC): 6 (Using) On/Off Footwear: 6 (Pt is able to retrieve and don/doff footwear by self.) Toileting Hygiene (QC): 6 (Pt able to manipulate clothing and cleanse self using FWW, BSC and grabbars.) Toilet Transfer (QC): 6 (Using grabbars, FWW and BSC pt able to complete by self.) Pt to stay with daughter after discharge. Pt does have equipment for home use from previous stay. Other Treatment Pt ambulated to therapy gym to complete arm bike for 15 min at 20 sandoval resistance to increase strength and activity tolerance for daily functional tasks. Pt then ambulated back to room and sat in recliner after session. Call light/phone in reach. All needs met in room. OT Cork Floor Installer Goals Cork Floor Installer Goals Time Frame: Aug 17, 2019 Eating (QC): 6 (met) Oral Hygiene (QC): 6 (met) Toileting Hygiene (QC): 6 (met) Shower/Bathe Self (QC): 5 (met) Upper Body Dressing (QC): 6 (met) Lower Body Dressing (QC): 6 (met) On/Off Footwear (QC): 6 (met) Additional Goals: 1-Demonstrate ADL Tasks, 2-Verbalize Understanding, 3- ImproveStrength/Reagan 1=Demonstrate adherence to instructed precautions during ADL tasks. 2=Patient will verbalize/demonstrate understanding of assistive devices/modifications for ADL. 3=Patient will improve strength/tolerance for activity to enable patient to perform ADL's. OT Education/Plan Discharge Recommendations Plan/Recommendations: Continue POC Treatment Plan/Plan of Care Patient would benefit from OT for education, treatment and training to promote independence in ADL's, mobility, safety and/or upper extremity function for ADL's. Plan of Care: ADL Retraining, Functional Mobility, Group Exercise/Act as Ind, UE Funct Exercise/Act Treatment Duration: Aug 17, 2019 Frequency: At least 5 of 7 days/Wk (IRF) Estimated Hrs Per Day: 1.5 hours per day Agreement: Yes Rehab Potential: Good Time/GCodes Start Time: 07:15 Stop Time: 08:45 Total Time Billed (hr/min): 90 Billed Treatment Time 1 visit-ADL 5 (75 min) EX 1 (15 min) PREET MIDDLETON Aug 08, 2019 08:02
[2019-08-08] MEDS: PANTOPRAZOLE 40 MG (PROTONIX) TAB PO SCH ×2 (08:50→20:26)
[2019-08-08] MEDS: ASPIRIN E.C. 81 MG (ECOTRIN) TAB PO SCH (08:50)
[2019-08-08] MEDS: SENNA W/DOCUSATE (SENOKOT S) TABLET PO SCH ×2 (08:51→20:27)
[2019-08-08] MEDS: LABETALOL 200 MG (NORMODYNE) TAB PO SCH ×2 (08:52→20:25)
[2019-08-08] MEDS: LOSARTAN 100 MG (COZAAR) TABLET PO SCH (08:52)
[2019-08-08] MEDS: POLYETHYLENE GLYCOL 17 GM (MIRALAX) PACK PO SCH ×2 (08:55→20:24)
--- NOTE | 2019-08-08 10:31 | PM&R Progress Note ---
Subjective HPI/CC On Admission Date Seen by Provider: Aug 08, 2019 Time Seen by Provider: 09:00 Subjective/Events-last exam DC is planned Wednesday Needs a CPM at home and will reach out to Dr. Granado Bowels are moving a little bit, taking her medication and does not want a suppository Daughter will be with her for a few weeks Checked meds and labs Reviewed therapy notes Conferred with RN After rounds her leg became red and edematous and while maintained on Lovenox 40mg daily we will check USG and DR Granado was contacted and gave recs also Review of Systems Musculoskeletal: leg pain Objective Exam Vital Signs Vital Signs Date Time Temp Pulse Resp B/P (MAP) Pulse Ox O2 Delivery O2 Flow Rate FiO2 08/09/19 03:31 37.8 08/08/19 20:00 96 Room Air 08/08/19 18:00 62 18 139/72 (94) Capillary Refill : Less Than 3 Seconds General Appearance: No Apparent Distress, WD/WN, Chronically ill, Thin HEENT: PERRL/EOMI, Normal ENT Inspection, Pharynx Normal Neck: Full Range of Motion, Normal Inspection, Non Tender, Supple, Carotid Bruit Respiratory: Chest Non Tender, Lungs Clear, Normal Breath Sounds, No Accessory Muscle Use, No Respiratory Distress Cardiovascular: Regular Rate, Rhythm, No Edema, No Gallop, No JVD, No Murmur, Normal Peripheral Pulses Gastrointestinal: Normal Bowel Sounds, No Organomegaly, No Pulsatile Mass, Non Tender, Soft Back: Normal Inspection, No CVA Tenderness, No Vertebral Tenderness Extremity: Normal Capillary Refill, Normal Inspection, Normal Range of Motion (except right knee postop status), Non Tender, No Calf Tenderness, No Pedal Edema Neurologic/Psychiatric: Alert, Oriented x3, No Motor/Sensory Deficits, Normal Mood/Affect, analyst food and beverage II-XII Norm as Tested Skin: Normal Color, Warm/Dry Lymphatic: No Adenopathy Results/Procedures Lab Patient resulted labs reviewed. FIM Transfers Therapy Code Descriptions/Definitions Functional [place] Measure: 0=Not Assessed/NA 4=Minimal Assistance 1=Total Assistance 5=Supervision or Setup 2=Maximal Assistance 6=Modified [place] 3=Moderate Assistance 7=Complete IndependenceSCALE: Activities may be completed with or without assistive devices. 3-Nilgibmxnr-wegnbap completes the activity by him/herself with no assistance fr om a helper. 5-Set-up or Clean-up Assistance-helper sets up or cleans up; patient completes activity. [place] assists only prior to or following the activity. 4-Supervision or Touching Assistance-helper provides verbal cues and/or touching/steadying and/or contact guard assistance as patient completes activity. Assistance may be provided throughout the activity or intermittently. 3-Partial/Moderate Assistance-helper does LESS THAN HALF the effort. [place] lifts, holds or supports trunk or limbs, but provides less than half the effort. 2-Substantial/Maximal Assistance-helper does MORE THAN HALF the effort. [place] lifts or holds trunk or limbs and provides more than half the effort. 8-Nzwtnsjve-keggjg does ALL the effort. Patient does none of the effort to complete the activity. Or, the assistance of 2 or more helpers is required for the patient to complete the activity. If activity was not attempted, code reason: 7-Patient Refused. 9-Not Applicable-not attempted and the patient did not perform the activity before the current illness, exacerbation or injury. 10-Not Attempted due to Environmental Limitations-(lack of equipment, weather restraints, etc.). 88-Not Attempted due to Medical Conditions or Safety Concerns. Roll Left to Right (QC): 6 Sit to Lying (QC): 6 Sit to Stand (QC): 6 Chair/Mlw-ki-Mfmhe Xfer(QC): 6 Car Transfer (QC): 6 Gait Training Does the Patient Walk?: Yes Distance: x 50 ft, x 250 ft Walk 10 feet (QC): 6 Walk 50 ft with 2 Turns(QC): 6 Walk 150 ft (QC): 6 Walking 10ft/uneven surface-QC: 6 Gait Persons Needed: 0 Gait Assistive Device: FWW Wheelchair Training Does the Pt Use a Wheelchair?: No Stair Training Stair Training: Handrails/: 2 handrails #of Steps: 8 1 Step (curb) (QC): 6 4 Steps (QC): 6 12 Steps (QC): 6 Stairs: Pattern: Step to Balance Picking up an Object (QC): 6 ADL-Treatment Eating (QC): 6 (Pt completes own meal set up and uses regular utensils.) Oral Hygiene (QC): 6 (Standing at sink, completes oral hygiene.) Shower/Bathe Self (QC): 6 (Pt able to complete all areas using grabbars, hand held shower, long handle brush and shower seat.) Upper Body Dressing (QC): 6 (Pt retrieves own clothing with FWW and dresses self.) Lower Body Dressing (QC): 6 (Using) On/Off Footwear (QC): 6 (Pt is able to retrieve and don/doff footwear by self.) Toileting Hygiene (QC): 6 (Pt able to manipulate clothing and cleanse self using FWW, BSC and grabbars.) Toilet Transfer (QC): 6 (Using grabbars, FWW and BSC pt able to complete by self.) Assessment/Plan Assessment and Plan Assess & Plan/Chief Complaint Assessment: s/p right knee replacement uncomplicated by Dr Granado at PS[facility]IATRIC POD # 8 HTN Hypothyroidism Neuropathy Post op anemia Post op constipation now resolved GERD OA Mild cognition deficit? Now resolved Leg pain obtaining USG Wed am Plan: IRF protocol Pain control Monitor hgb BM regimen Monitor BP Decrease pain meds DC Wed? (1) Status post right knee replacement (2) Constipation by delayed colonic transit Status: Acute (3) Osteoarthritis Status: Chronic (4) Neuropathy Status: Chronic (5) Hypertension Status: Chronic (6) GERD without esophagitis Status: Chronic (7) Postoperative anemia Status: Acute (8) Cognitive decline Status: Chronic (9) Advanced age Status: Chronic KAVON HURTADO DO Aug 08, 2019 10:31
--- NOTE | 2019-08-08 12:08 | Physical Therapy Daily Note ---
PT Daily Note-Current Subjective Pt sitting in recliner upon arrival. Pt agrees to PT for QC scoring for D/C tomorrow (08/09). Pain Numeric Pain Scale: 3 Location: Right Location Body Site: Knee Pain Description: Ache Mental Status Patient Orientation: Person, Place, Time, Situation Transfers SCALE: Activities may be completed with or without assistive devices. 0-Agjidxjenq-hxmudii completes the activity by him/herself with no assistance from a helper. 5-Set-up or Clean-up Assistance-helper sets up or cleans up; patient completes activity. [place] assists only prior to or following the activity. 4-Supervision or Touching Assistance-helper provides verbal cues and/or touching/steadying and/or contact guard assistance as patient completes activity. Assistance may be provided throughout the activity or intermittently. 3-Partial/Moderate Assistance-helper does LESS THAN HALF the effort. [place] lifts, holds or supports trunk or limbs, but provides less than half the effort. 2-Substantial/Maximal Assistance-helper does MORE THAN HALF the effort. [place] lifts or holds trunk or limbs and provides more than half the effort. 9-Jweszhhzi-nuuezt does ALL the effort. Patient does none of the effort to complete the activity. Or, the assistance of 2 or more helpers is required for the patient to complete the activity. If activity was not attempted, code reason: 7-Patient Refused. 9-Not Applicable-not attempted and the patient did not perform the activity before the current illness, exacerbation or injury. 10-Not Attempted due to Environmental Limitations-(lack of equipment, weather restraints, etc.). 88-Not Attempted due to Medical Conditions or Safety Concerns. Roll Left & Right (QC): 6 Sit to Lying (QC): 6 Lying to Sitting/Side of Bed(Q: 6 Sit to Stand (QC): 6 Chair/Doo-xq-Klrjh Xfer(QC): 6 Toilet Transfer (QC): 6 Car Transfer (QC): 6 Weight Bearing Right Lower Extremity: Right Weight Bearing/Tolerated Left Lower Extremity: Left Full Weight Bearing Gait Training Does the Patient Walk?: Yes Distance: 750' Walk 10 feet (QC): 6 Walk 50 ft with 2 Turns(QC): 6 Walk 150 ft (QC): 6 Walking 10ft/uneven surface-QC: 6 Gait Persons Needed: 1 Gait Assistive Device: FWW Wheelchair Training Does the Pt Use a Wheelchair?: No Stair Training Stair Training: Handrails/: 2 handrails #of Steps: 8 1 Step (curb) (QC): 6 4 Steps (QC): 6 12 Steps (QC): 7 Stairs: Pattern: Step to Balance Picking up an Object (QC): 6 Treatments Pt completes QC scoring items as well as extended ambulation on main floor of hospital. Pt takes RB as needed. Pt returns to room at end of Rx to rest in recliner and eat lunch. Pt has all needs met, call light in hand. Assessment Current Status: Good Progress Pt tolerates Rx well. Pt is excited to D/C tomorrow. PT Short Term Goals Short Term Goals Time Frame: Aug 10, 2019 Sit to lyin Lying to sitting on side of be: 5 Sit to stand: 5 Walk 150 feet: 5 PT Shelter Goals Automatic Dry Starch Operator Goals PT Automatic Dry Starch Operator Goals Time Frame: Aug 17, 2019 Roll Left & Right (QC): 6 Sit to Lying (QC): 6 Lying-Sitting on Side/Bed(QC): 6 Sit to Stand (QC): 6 Chair/Edr-pm-Wsyjg Xfer(QC): 6 Toilet Transfer (QC): 6 Car Transfer (QC): 6 Does the Patient Walk: Yes Walk 10 feet (QC): 6 Walk 50ft with 2 Turns (QC): 6 Walk 150 ft (QC): 6 Walking 10ft on Uneven Surface: 6 1 Step (curb) (QC): 6 4 Steps (QC): 6 12 Steps (QC): 9 Picking up an Object (QC): 4 Does the Pt use WC or Scooter?: No PT Plan Problem List Problem List: Activity Tolerance Treatment/Plan Treatment Plan: Continue Plan of Care Treatment Plan: Bed Mobility, Education, Functional Activity Reagan, Functional Strength, Group Therapy, Gait, Safety, Therapeutic Exercise, Transfers Treatment Duration: Aug 17, 2019 Frequency: At least 5 of 7 days/Wk (IRF) Estimated Hrs Per Day: 1.5 hours per day Patient and/or Family Agrees t: Yes Safety Risks/Education Patient Education: Gait Training, Transfer Techniques, Steps, Correct Positioning, Safety Issues Teaching Recipient: Patient Teaching Methods: Discussion Response to Teaching: Verbalize Understanding Time/GCodes Time In: 1100 Time Out: 1200 Total Billed Treatment Time: 60 Total Billed Treatment 1, GT x2 (30m) & FA x2 (30m) IAN HOUSTON FIELD SALES MANAGER Aug 08, 2019 12:08
--- NOTE | 2019-08-08 12:41 | NUR ---
CM/SS DISCHARGE PLANNING Patient will discharge to her home tomorrow with her daughter Herlinda Mckeon, Herlinda will stay with her 2 weeks during her recuperation. OP PT: Patient requested services with [facility] at their [facility] facility. Coordinated through Dr. Granado office, confirmed with [facility] that they did receive the therapy orders. Staff understand the patient's request for them to call her at her home to set up her schedule. DME: CPM was ordered and arranged by Dr. Granado staff for delivery to patient home upon her discharge. Staff understand she is discharging tomorrow, patient is aware of the arrangement and will follow up directly with Dr. Granado office if needed. IMM2 presented, signed, charted. Patient ready for discharge and all arrangements appear in place. No further interventions unless situation changes to warrant.
--- NOTE | 2019-08-08 14:29 | Physical Therapy Daily Note ---
PT Daily Note-Current Subjective Pt laying Supine in bed upon arrival. Pt agrees to PT. Pain Numeric Pain Scale: 3 Location: Right Location Body Site: Knee Pain Description: Ache Mental Status Patient Orientation: Person, Place, Time, Situation Attachments: Polar Pack Transfers SCALE: Activities may be completed with or without assistive devices. 3-Telgfpfxyr-uuweubo completes the activity by him/herself with no assistance from a helper. 5-Set-up or Clean-up Assistance-helper sets up or cleans up; patient completes activity. [place] assists only prior to or following the activity. 4-Supervision or Touching Assistance-helper provides verbal cues and/or touching/steadying and/or contact guard assistance as patient completes activity. Assistance may be provided throughout the activity or intermittently. 3-Partial/Moderate Assistance-helper does LESS THAN HALF the effort. [place] lifts, holds or supports trunk or limbs, but provides less than half the effort. 2-Substantial/Maximal Assistance-helper does MORE THAN HALF the effort. [place] lifts or holds trunk or limbs and provides more than half the effort. 7-Vyendbmto-qbvnfe does ALL the effort. Patient does none of the effort to complete the activity. Or, the assistance of 2 or more helpers is required for the patient to complete the activity. If activity was not attempted, code reason: 7-Patient Refused. 9-Not Applicable-not attempted and the patient did not perform the activity before the current illness, exacerbation or injury. 10-Not Attempted due to Environmental Limitations-(lack of equipment, weather restraints, etc.). 88-Not Attempted due to Medical Conditions or Safety Concerns. Roll Left & Right (QC): 6 Sit to Lying (QC): 6 Lying to Sitting/Side of Bed(Q: 6 Sit to Stand (QC): 6 Chair/Mgl-my-Yomzs Xfer(QC): 6 Toilet Transfer (QC): 6 Weight Bearing Right Lower Extremity: Right Weight Bearing/Tolerated Left Lower Extremity: Left Full Weight Bearing Gait Training Does the Patient Walk?: Yes Distance: 150' Walk 10 feet (QC): 6 Walk 50 ft with 2 Turns(QC): 6 Walk 150 ft (QC): 6 Gait Persons Needed: 1 Gait Assistive Device: FWW Wheelchair Training Does the Pt Use a Wheelchair?: No Stair Training Stair Training: Handrails/: 2 handrails #of Steps: 12 1 Step (curb) (QC): 6 4 Steps (QC): 6 12 Steps (QC): 6 Stairs: Pattern: Step to Exercises NuStep Minutes: 15 NuStep Workload: 4 Treatments Pt transfers from bed to standing. Pt then uses restroom before leaving room. Pt ambulates in hallway. Pt uses NuStep for 15m at WL 4. Pt then ambulates 12 steps before returning to room. Pt transfers back to Supine in bed. Pt asked for Polar Pack to be applied. SALES REPRESENTATIVES assisted pt with application of it, pt has all needs met including call light. Assessment Current Status: Good Progress Pt tolerated Rx well. PT Short Term Goals Short Term Goals Time Frame: Aug 10, 2019 Sit to lyin Lying to sitting on side of be: 5 Sit to stand: 5 Walk 150 feet: 5 PT Test Engineering Manager Goals Assisted Goals PT Test Engineering Manager Goals Time Frame: Aug 17, 2019 Roll Left & Right (QC): 6 Sit to Lying (QC): 6 Lying-Sitting on Side/Bed(QC): 6 Sit to Stand (QC): 6 Chair/Tlr-os-Mfzym Xfer(QC): 6 Toilet Transfer (QC): 6 Car Transfer (QC): 6 Does the Patient Walk: Yes Walk 10 feet (QC): 6 Walk 50ft with 2 Turns (QC): 6 Walk 150 ft (QC): 6 Walking 10ft on Uneven Surface: 6 1 Step (curb) (QC): 6 4 Steps (QC): 6 12 Steps (QC): 9 Picking up an Object (QC): 4 Does the Pt use WC or Scooter?: No PT Plan Problem List Problem List: Activity Tolerance Treatment/Plan Treatment Plan: Continue Plan of Care Treatment Plan: Bed Mobility, Education, Functional Activity Reagan, Functional Strength, Group Therapy, Gait, Safety, Therapeutic Exercise, Transfers Treatment Duration: Aug 17, 2019 Frequency: At least 5 of 7 days/Wk (IRF) Estimated Hrs Per Day: 1.5 hours per day Patient and/or Family Agrees t: Yes Safety Risks/Education Patient Education: Steps, Correct Positioning, Safety Issues Teaching Recipient: Patient Teaching Methods: Discussion Response to Teaching: Verbalize Understanding Time/GCodes Time In: 1300 Time Out: 1330 Total Billed Treatment Time: 30 Total Billed Treatment 1, EX (15m) & FA (15m) TREIBER,IAN SALES REPRESENTATIVES Aug 08, 2019 14:29
[2019-08-08] MEDS: ENOXAPARIN 40 MG/0.4 ML (LOVENOX) SYR SC SCH (15:22)
[2019-08-08 18:00] VITALS: BP 139/72
[2019-08-08] MEDS ORDERED: APIXABAN 5 MG (ELIQUIS) TABLET PO SCH ×2 (18:30→19:00)
--- NOTE | 2019-08-08 18:30 | NUR ---
CALLED TO ROOM BY PATIENT. SHE NOTES SWELLING/MILD WARMTH IN RIGHT LEG WHICH THIS NURSE AGREES TO. DENIES ANY ADDITIONAL PAIN IN LEG. LEG DOES APPEAR SLIGHT DARKER IN COLOR. DR. HURTADO NOTIFIED AND PIC SENT. ORDER TO LET DR. STANTON KNOW AND MESSAGE SENT TO HIM.
--- NOTE | 2019-08-08 19:00 | NUR ---
DR. STANTON THINKS IT COULD BE A BLEEDING COMPLICATION FROM LOVENOX. SINCE PATIENT STATES NO HISTORY OF DVT/PE, HE STATES TO DC LOVENOX/ELIQUIS AND GET US IN AM. IF NEGATIVE, TO START BABY ASA DAILY AND NSAID ROUTINE FOR A MONTH.
[2019-08-08] MEDS: amLODIPine 5 MG (NORVASC) TAB PO SCH (20:24)
[2019-08-08] MEDS: GABAPENTIN 300 MG (NEURONTIN) CAP PO SCH (20:26)
[2019-08-08] MEDS: MELATONIN 3 MG TABLET PO PRN (20:27)
--- NOTE | 2019-08-08 21:09 | NUR ---
DR HURTADO MADE AWARE OF DR BECKMAN RECOMMENDATIONS SHE AGREES.. PATIENT MADE AWARE OF PLANS FOR VD ULTRASOUND IN AM AND MED ORDERS.
[2019-08-09] MEDS: HYDROcodone/APAP 5 MG/325 MG (LORTAB) TAB PO PRN ×2 (03:31→08:51)
[2019-08-09 05:55] VITALS: BP 128/72
[2019-08-09] MEDS: LEVOTHYROXINE 50 MCG (LEVOTHROID) TAB PO SCH (05:58)
--- NOTE | 2019-08-09 07:59 | Diagnostic Imaging Report ---
PROCEDURE: US right lower extremity venous. TECHNIQUE: Multiple real-time grayscale images were obtained over the right lower extremity in various projections. Additional spectral analysis and color Doppler duplex images were also obtained. INDICATION: Lower extremity edema EXAMINATION: Grayscale and color Doppler evaluation of the deep veins of the right lower extremity were performed with waveform analysis. FINDINGS: Continuous venous flow is present. No intraluminal filling defect is identified. There is normal compressibility and response to augmentation. No abnormal perivascular fluid collection is identified. IMPRESSION: No ultrasound evidence of right lower extremity deep venous thrombosis. Dictated by: Dictated on workstation # [id number]
[2019-08-09] MEDS: POLYETHYLENE GLYCOL 17 GM (MIRALAX) PACK PO SCH (08:21)
[2019-08-09] MEDS: LABETALOL 200 MG (NORMODYNE) TAB PO SCH (08:22)
[2019-08-09] MEDS: LOSARTAN 100 MG (COZAAR) TABLET PO SCH (08:23)
[2019-08-09] MEDS: ASPIRIN E.C. 81 MG (ECOTRIN) TAB PO SCH (08:23)
[2019-08-09] MEDS: PANTOPRAZOLE 40 MG (PROTONIX) TAB PO SCH (08:23)
[2019-08-09] MEDS: SENNA W/DOCUSATE (SENOKOT S) TABLET PO SCH (08:25)
--- NOTE | 2019-08-09 09:03 | Therapy Team Discharge Summary ---
Therapy Discharge Summary Discharge Recommendations Date of Discharge Physical Therapy Patient came to rehab following a right TKA. Upon evaluation patient performed bed mobility with SBA, supine <-> sit with SBA, sit <-> stand with min assist, transfers with CGA, car transfer with min assist, toilet transfer with min assist, ambulated 150' with a rolling walker with CGA (including 50' with at least 2 turns of 90 degrees but needs min assist for 10' over an uneven surface), and went up and down 1 step using a rolling walker with min assist. Patient has been performing bed mobility and transfer training, balance and endurance training, functional strengthening, stair training, gait training, and education. 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 Now, patient performs bed mobility and transfers with independence, car transfer with independence, ambulates 750' with a rolling walker with independence (including 50' with at least 2 turns of 90 degrees and 10' over an uneven surface), and can go up and down 8 steps using 2 handrails with in dependence, and can filler picker an object from the floor with independence. Patient is discharging from this facility today and will be discharged from PT at this time. Occupational Therapy Decreased Activ Tolerance, Decreased UE Strength PT Skilled Nursing Goals Skilled Nursing Goals PT Skilled Nursing Goals Time Frame: Aug 17, 2019 Roll Left to Right (QC): 6 Sit to Lying (QC): 6 Lying-Sitting on Side/Bed(QC): 6 Sit to Stand (QC): 6 Chair/Umh-yq-Shnzw Xfer(QC): 6 Car Transfer (QC): 6 Does the Patient Walk: Yes Walk 10 feet (QC): 6 Walk 10ft-Uneven Surface(QC): 6 Walk 50ft with 2 Turns (QC): 6 Walk 150 ft (QC): 6 Does the Pt use WC or Scooter?: No 1 Step (curb) (QC): 6 4 Steps (QC): 6 12 Steps (QC): 9 Picking up an Object (QC): 4 OT Idea Man Goals Idea Man Goals Time Frame: Aug 17, 2019 Eating (QC): 6 (met) Oral Hygiene (QC): 6 (met) Shower/Bathe Self (QC): 5 (met) Upper Body Dressing (QC): 6 (met) Lower Body Dressing (QC): 6 (met) On/Off Footwear (QC): 6 (met) Toileting Hygiene (QC): 6 (met) Toilet/Commode Transfer (QC): 6 Additional Goals: 1-Demonstrate ADL Tasks, 2-Verbalize Understanding, 3- ImproveStrength/Reagan 1=Demonstrate adherence to instructed precautions during ADL tasks. 2=Patient will verbalize/demonstrate understanding of assistive devices/m odifications for ADL. 3=Patient will improve strength/tolerance for activity to enable patient to perform ADL's. LANI PALAFOX PT Aug 09, 2019 09:03
[2019-08-09] MEDS ORDERED: ACHD5005 PO (09:24)
[2019-08-09] MEDS ORDERED: SENN-20 PO (09:24)
[2019-08-09] MEDS ORDERED: POLY17PO31 PO (09:24)
--- NOTE | 2019-08-09 09:25 | Discharge Summary ---
Diagnosis/Chief Complaint Date of Admission Aug 03, 2019 at 13:50 Date of Discharge Discharge Diagnosis Assessment: s/p right knee replacement uncomplicated by Dr Granado at [facility] POD # 9 HTN Hypothyroidism Neuropathy Post op anemia Post op constipation now resolved GERD OA Mild cognition deficit? Now resolved Leg pain USG negative 08/09/19 Plan: IRF protocol Pain control Monitor hgb BM regimen Monitor BP Decrease pain meds DC Wed? (1) Status post right knee replacement (2) Constipation by delayed colonic transit Status: Acute (3) Osteoarthritis Status: Chronic (4) Neuropathy Status: Chronic (5) Hypertension Status: Chronic (6) GERD without esophagitis Status: Chronic (7) Postoperative anemia Status: Acute (8) Cognitive decline Status: Chronic (9) Advanced age Status: Chronic Discharge Summary Discharge Physical Examination Allergies: Coded Allergies: No Allergy Information Available (Unverified , 03/30/19) Vitals & I&Os Vital Signs Date Time Temp Pulse Resp B/P (MAP) Pulse Ox O2 Delivery O2 Flow Rate FiO2 08/09/19 10:45 08/09/19 08:00 Room Air 08/09/19 05:55 37.0 63 20 95 General Appearance: Alert, Oriented X3, Cooperative Respiratory: Clear to Auscultation Cardiovascular: Regular Rate Neuro: Normal Gait, Normal Speech, Strength at 5/5 X4 Ext Psych/Mental Status: Mental Status NL Hospital Course Was the Problem List Reviewed?: Yes Hospital course: Pt had an uneventful hospital course for seven days, she was admitted after a right TKA by Dr. Granado in [place], uncomplicated. She was able to have complete participation in therapy. She was able to work to return to prior level of functioning. Ultrasound was obtained of the right leg at discharge due to edema, no evidence of DVT. Pt was placed on Mobic of 7.5 BID along with Aspirin 81 Mg daily. Bowels returned back to normal and she was sent home on Hydrocodone prescription. Labs (last 24 hrs) Laboratory Tests 08/03/19 15:30: White Blood Count 11.1H, Red Blood Count 2.96L, Hemoglobin 9.2L, Hematocrit 29L, Mean Corpuscular Volume 96, Mean Corpuscular Hemoglobin 31, Mean Corpuscular Hemoglobin Concent 32, Red Cell Distribution Width 13.4, Platelet Count 223, Mean Platelet Volume 8.9, Neutrophils (%) (Auto) 65, Lymphocytes (%) (Auto) 21, Monocytes (%) (Auto) 11, Eosinophils (%) (Auto) 2, Basophils (%) (Auto) 0, Neutrophils # (Auto) 7.2, Lymphocytes # (Auto) 2.3, Monocytes # (Auto) 1.2H, Eosinophils # (Auto) 0.2, Basophils # (Auto) 0.0, Sodium Level 134L, Potassium Level 4.1, Chloride Level 103, Carbon Dioxide Level 22, Anion Gap 9, Blood Urea Nitrogen 24H, Creatinine 1.03, Estimat Glomerular Filtration Rate 51, BUN/Creatinine Ratio 23, Glucose Level 105, Calcium Level 8.2L, Corrected Calcium 8.3L, Iron Level 18L, Total Bilirubin 0.2, Aspartate Amino Transf (AST/SGOT) 16, Alanine Aminotransferase (ALT/SGPT) < 6, Alkaline Phosphatase 68, Total Protein 5.9L, Albumin 3.9 08/07/19 05:53: White Blood Count 7.3, Red Blood Count 2.82L, Hemoglobin 8.7L, Hematocrit 27L, Mean Corpuscular Volume 96, Mean Corpuscular Hemoglobin 31, Mean Corpuscular Hemoglobin Concent 32, Red Cell Distribution Width 13.2, Platelet Count 234, Mean Platelet Volume 9.4, Neutrophils (%) (Auto) 56, Lymphocytes (%) (Auto) 25, Monocytes (%) (Auto) 13H, Eosinophils (%) (Auto) 6, Basophils (%) (Auto) 1, Neutrophils # (Auto) 4.1, Lymphocytes # (Auto) 1.8, Monocytes # (Auto) 1.0, Eosinophils # (Auto) 0.4H, Basophils # (Auto) 0.0, Sodium Level 136, Potassium Level 4.4, Chloride Level 104, Carbon Dioxide Level 22, Anion Gap 10, Blood Urea Nitrogen 18, Creatinine 1.13, Estimat Glomerular Filtration Rate 46, BUN/Creatinine Ratio 16, Glucose Level 101, Calcium Level 8.7, Corrected Calcium 9.1, Total Bilirubin 0.6, Aspartate Amino Transf (AST/SGOT) 30, Alanine Aminotransferase (ALT/SGPT) 20, Alkaline Phosphatase 58, Total Protein 5.7L, Albumin 3.5 Pending Labs Laboratory Tests 08/03/19 15:30: White Blood Count 11.1, Red Blood Count 2.96, Hemoglobin 9.2, Hematocrit 29, Mean Corpuscular Volume 96, Mean Corpuscular Hemoglobin 31, Mean Corpuscular Hemoglobin Concent 32, Red Cell Distribution Width 13.4, Platelet Count 223, Kailyn n Platelet Volume 8.9, Neutrophils (%) (Auto) 65, Lymphocytes (%) (Auto) 21, Monocytes (%) (Auto) 11, Eosinophils (%) (Auto) 2, Basophils (%) (Auto) 0, Neutrophils # (Auto) 7.2, Lymphocytes # (Auto) 2.3, Monocytes # (Auto) 1.2, Eosinophils # (Auto) 0.2, Basophils # (Auto) 0.0, Sodium Level 134, Potassium Level 4.1, Chloride Level 103, Carbon Dioxide Level 22, Anion Gap 9, Blood Urea Nitrogen 24, Creatinine 1.03, Estimat Glomerular Filtration Rate 51, BUN/Creatinine Ratio 23, Glucose Level 105, Calcium Level 8.2, Corrected Calcium 8.3, Iron Level 18, Total Bilirubin 0.2, Aspartate Amino Transf (AST/SGOT) 16, Alanine Aminotransferase (ALT/SGPT) < 6, Alkaline Phosphatase 68, Total Protein 5.9, Albumin 3.9 08/07/19 05:53: White Blood Count 7.3, Red Blood Count 2.82, Hemoglobin 8.7, Hematocrit 27, Mean Corpuscular Volume 96, Mean Corpuscular Hemoglobin 31, Mean Corpuscular Hemoglobin Concent 32, Red Cell Distribution Width 13.2, Platelet Count 234, Mean Platelet Volume 9.4, Neutrophils (%) (Auto) 56, Lymphocytes (%) (Auto) 25, Monocytes (%) (Auto) 13, Eosinophils (%) (Auto) 6, Basophils (%) (Auto) 1, Neutrophils # (Auto) 4.1, Lymphocytes # (Auto) 1.8, Monocytes # (Auto) 1.0, Eosinophils # (Auto) 0.4, Basophils # (Auto) 0.0, Sodium Level 136, Potassium Level 4.4, Chloride Level 104, Carbon Dioxide Level 22, Anion Gap 10, Blood Urea Nitrogen 18, Creatinine 1.13, Estimat Glomerular Filtration Rate 46, BUN/Creatinine Ratio 16, Glucose Level 101, Calcium Level 8.7, Corrected Calcium 9.1, Total Bilirubin 0.6, Aspartate Amino Transf (AST/SGOT) 30, Alanine Aminotransferase (ALT/SGPT) 20, Alkaline Phosphatase 58, Total Protein 5.7, Albumin 3.5 Discharge Home Medications: Active Scripts Active Polyethylene Glycol 3350 17 Gm Powd.pack 17 Gm PO BID Senna-Time S Tablet (Sennosides/Docusate Sodium) 1 Each Tablet 1 Ea PO BID Hydrocodone/Acetaminophen 5/325mg Tablet (Acetaminophen/Hydrocodone Bitart) 1 Tab Tab 1-2 Tab PO Q4H PRN Reported Meloxicam 15 Mg Tablet 7.5 Mg PO BID TAKES 1/2 (15MG) TABLET Aspirin EC (Aspirin) 81 Mg Tablet.dr 81 Mg PO DAILY Losartan Potassium 100 Mg Tablet 100 Mg PO DAILY Labetalol HCl 100 Mg Tablet 100 Mg PO HS Labetalol HCl 100 Mg Tablet 50 Mg PO DAILY TAKES 1/2 (100MG) TABLET Amlodipine Besylate 5 Mg Tablet 5 Mg PO HS Senna (Sennosides) 8.6 Mg Tablet 8.6 Mg PO HS PRN Gabapentin 300 Mg Capsule 300 Mg PO HS LAST FILLED #60 9-5-19 Potassium (Potassium Gluconate) 99 Mg Tablet 99 Mg PO DAILY Levothyroxine Sodium 50 Mcg Tablet 50 Mcg PO DAILY Instructions to patient/family Please see electronic discharge instructions given to patient. Diagnosis/Problems Diagnosis/Problems (1) Status post right knee replacement (2) Constipation by delayed colonic transit Status: Acute (3) Osteoarthritis Status: Chronic (4) Neuropathy Status: Chronic (5) Hypertension Status: Chronic (6) GERD without esophagitis Status: Chronic (7) Postoperative anemia Status: Acute (8) Cognitive decline Status: Chronic (9) Advanced age Status: Chronic Clinical Quality Measures DVT/VTE Risk/Contraindication: Risk Factor Score Per Nursin RFS Level Per Nursing on Admit: 4+=Very High KAVON HURTADO DO Aug 09, 2019 09:25
--- NOTE | 2019-08-10 13:23 | Therapy Team Discharge Summary ---
Therapy Discharge Summary Discharge Recommendations Date of Discharge Aug 09, 2019 at 10:45 Therapy D/C Recommendations: Home w/ Family Support Occupational Therapy Pt. seen for occupational therapy to increase overall strength with ADL skills, as well as safety for functional return home. Pt. met all ADL goals. Demonstrated ability before discharge to complete bathing, dressing, toileting, grooming with Mod I. Pt. discharging home with family support. All needs met prior to discharge. PT Retirement Goals Director Hardware Goals PT Retirement Goals Time Frame: Aug 17, 2019 Roll Left to Right (QC): 6 Sit to Lying (QC): 6 Lying-Sitting on Side/Bed(QC): 6 Sit to Stand (QC): 6 Chair/Yhc-fd-Lwcaj Xfer(QC): 6 Car Transfer (QC): 6 Does the Patient Walk: Yes Walk 10 feet (QC): 6 Walk 10ft-Uneven Surface(QC): 6 Walk 50ft with 2 Turns (QC): 6 Walk 150 ft (QC): 6 Does the Pt use WC or Scooter?: No 1 Step (curb) (QC): 6 4 Steps (QC): 6 12 Steps (QC): 9 Picking up an Object (QC): 4 OT Director Hardware Goals Director Hardware Goals Time Frame: Aug 17, 2019 Eating (QC): 6 (met) Oral Hygiene (QC): 6 (met) Shower/Bathe Self (QC): 5 (met) Upper Body Dressing (QC): 6 (met) Lower Body Dressing (QC): 6 (met) On/Off Footwear (QC): 6 (met) Toileting Hygiene (QC): 6 (met) Toilet/Commode Transfer (QC): 6 Additional Goals: 1-Demonstrate ADL Tasks, 2-Verbalize Understanding, 3- ImproveStrength/Reagan 1=Demonstrate adherence to instructed precautions during ADL tasks. 2=Patient will verbalize/demonstrate understanding of assistive devices/modifications for ADL. 3=Patient will improve strength/tolerance for activity to enable patient to perform ADL's. FELICIA PARK OT Aug 10, 2019 13:23
[2019-08-15] MEDS ORDERED: APIXABAN 5 MG (ELIQUIS) TABLET PO SCH (19:00)
== END 2019-08-09 10:45 | disposition home or self-care (01) | DRG 561 ==
PROVIDERS: ADMIT Internal Medicine; ATTEND Internal Medicine
DX: Z47.1 Aftercare following joint replacement surgery (principal); Z96.651 Presence of right artificial knee joint; M19.91 Primary osteoarthritis, unspecified site; I10 Essential (primary) hypertension; G62.9 Polyneuropathy, unspecified; E03.9 Hypothyroidism, unspecified; K59.01 Slow transit constipation; K21.9 Gastro-esophageal reflux disease without esophagitis; D64.9 Anemia, unspecified; R41.89 Other symptoms and signs involving cognitive functions and awareness
CPT/HCPCS: 36415; 80053; 83540; 85025; 85027

== ENCOUNTER → 2019-09-07 | Outpatient (CLI) | payer MEDICARE ==
[~2019-09-07] MED LIST changes: +CATHETER FLUSH 10 ML SYR IV PRN; +HOLD METFORMIN - RECEIVED CONTRAST 20 ML VIAL IV SCH; +IOHEXOL 350 MG/ML 150 ML (OMNIPAQUE 350) VIAL IV ONE; +IRON150C3 PO; +LOSA100T57 PO; +NS 100 ML (IVPB) BAG IV ONE; +POLY17PO31 PO; +SENN-20 PO
--- NOTE | 2019-09-07 17:07 | Diagnostic Imaging Report ---
CLINICAL INDICATION: Patient with shortness of breath, fatigue, status post bilateral total knee replacement four months ago. Patient has elevated d-dimer. EXAM: CT angiogram of the chest performed with 125 cc Omnipaque 350 IV contrast. Coronal and oblique MIP images of the vasculature were created to better evaluate anatomy. Auto Exposure Controls were utilized during the CT exam to meet ALARA standards for radiation dose reduction. COMPARISON: None. FINDINGS: There is no evidence of pulmonary embolism. There is no thoracic aortic dissection or aneurysm. There is a 10 mm x 8 mm nodule in the middle lobe perihilar region which is best seen on series 4, image 66. There is a 4 mm nodule in the lateral periphery of the right lower lobe seen on series 4, image 46. There is a 2 mm nodule involving the posterior right upper lobe seen on series 4, image 39. There is mild bibasilar atelectasis along the posterior aspects of both lungs. There is no pleural effusion or pneumothorax. There are perihilar mediastinal lymph nodes with no significant lymphadenopathy. There are partially calcified right hilar lymph nodes noted. Mediastinal structures and heart shows no significant abnormality. There is calcified granuloma in the spleen. The visualized portions of the upper abdominal structures are unremarkable. There are degenerative spurs involving the thoracic spine. IMPRESSION: 1: There is no evidence of pulmonary embolism. There is no thoracic aortic aneurysm or dissection. 2: There are a few right upper lobe and middle lobe nodules, as described above. The largest one measures 10 mm x 8 mm in the middle lobe perihilar region. Comparison to prior chest CT scans, if available, would help better evaluate for chronicity. If none are available, then follow-up chest CT scan with contrast in three months is suggested to evaluate for stability. 3: Calcified granulomatous disease. Results of this report were discussed with Dr. Demetrio Patino via the telephone on 09/07/2019 at 1700 hours. Dictated by: Dictated on workstation # [id number]
== END ==
LOC: RAD FS 16:09
PROVIDERS: ATTEND Family Medicine
DX: R91.8 Other nonspecific abnormal finding of lung field (principal); R79.89 Other specified abnormal findings of blood chemistry
CPT/HCPCS: 71275